=== PATIENT | male | born 1970 | race Caucasian/White ===

== ENCOUNTER 2023-08-26 16:06 | Outpatient (CLI) | payer BC, SELFPAY ==
[2023-08-26 17:20] LABS: Prostate Specific Antigen 1.1 ng/mL (< OR = 4.0)
== END 2023-08-26 16:07 | disposition home or self-care (01) ==
LOC: ANHLAB 16:08
PROVIDERS: Physician Assistant; PCP Family Medicine; Visit Provider Internal Medicine Hematology & Oncology
DX: Z12.5 Encounter for screening for malignant neoplasm of prostate (principal)
CPT/HCPCS: 36415; 84153; G0103

== ENCOUNTER 2024-12-31 17:04 | Outpatient (CLI) | payer BC, SELFPAY ==
--- OUTSIDE RECORDS SUMMARY | 2024-12-31 17:10 | XMS_ITS | Clinical Summary ---
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 08/02/19 23 Active Xyrem 500 mg/mL Solution 06/14/20 22 Active testosterone cypionate (DEPO-TESTOSTERONE ) 100 mg/mL Oil Inject 150 mg by intramuscular injection. Active verapamiL (CALAN) 120 mg tablet Take 120 mg by mouth 2 times daily. 07/13/20 22 Active vilazodone (VIIBRYD) 20 mg Tablet vilazodone 20 mg tablet Active SUMAtriptan (IMITREX) 100 mg tablet Take 100 mg by mouth see administration instructions. 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 Migraine 08/28/2022 Encounters Date Type Department Care Team Description 12/29/2024 Abstract [facility] On[facility] and H[facility]ology - [place] [address] [place] [address] Bethel Goldberg MD 12/28/2024 External Device Data STL ABSTRACTION Provider, Abstract 12/15/2024 External Device Data STL ABSTRACTION Provider, Abstract 12/14/2024 External Device Data ST[facility] ABSTRACTION Provider, Abstract 12/13/2024 Orders Only [facility] - [place] [address] [place] [id number] Bethel Goldberg MD Hereditary hemochromatosis (Primary Dx) 12/09/2024 4:30 PM CDT Telephone Check Up [facility] On[facility] and Hematology - [place] [address] [place] [address] Bethel Goldberg MD Leukocytosis, unspecified type (Primary Dx) 12/06/2024 Orders Only [facility] On[facility] H[facility] - [place] [address] [place] [id number] Bethel Goldberg MD Hereditary hemochromatosis 12/03/2024 Refill [facility] - [place] [address] [place] [address] Bethel Goldberg MD Hereditary hemochromatosis 11/30/2024 Orders Only [facility] - [place] [address] [place] [phone] Bethel Goldberg MD 11/30/2024 Abstract [facility] - [place] [address] [place] [phone] Bethel Goldberg MD 11/29/2024 3:45 PM CDT Office Visit [facility] - [place] [address] [place] [address] Bethel Goldberg MD Hereditary hemochromatosis (Primary Dx); Leukocytosis, unspecified type 11/22/2024 Orders Only [facility] - [place] [address] [place] [address] Bethel Goldberg MD Hereditary hemochromatosis 11/09/2024 External Device Data STL ABSTRACTION Provider, Abstract 11/08/2024 Orders Only [facility]ology - [place] [address] [place] [address] Bethel Goldberg MD Hereditary hemochromatosis 10/25/2024 Orders Only [facility] On[facility] Hematology - [place] [address] [place] [address] Bethel Goldberg MD Hereditary hemochromatosis 10/11/2024 Orders Only [facility] - [place] [address] [place] [address] Bethel Goldberg MD Hereditary hemochromatosis 10/05/2024 External Device Data STL ABSTRACTION Provider, Abstract 10/05/2024 External Device Data STL ABSTRACTION Provider, Abstract 10/02/2024 External Device Data STL ABSTRACTION Provider, Abstract 10/01/2024 External Device Data STL ABSTRACTION Provider, Abstract from Last 3 Months Family History Medical History Relation Name Comments No Known Problems Daughter 1 No Known Problems Daughter 2 Heart Disease Father Kidney Disease Father Dementia Mother No Known Problems Sister Relation Name Status Comments Daughter 1 Alive Daughter 2 Alive Father Alive Mother Alive Sister Alive Social History Tobacco Use Types Packs/Day Years Used Date Smoking Tobacco: Never Smokeless Tobacco: Former Chew Quit: 07/28/2009 Tobacco Cessation:Counseling Given: Not Answered Alcohol Use Standard Drinks/Week Comments Yes 0 (1 standard drink = 0.6 oz pur e alcohol) 1 drink every several months Sex and Gender Information Value Date Recorded Sex Assigned at Not on file Legal Sex Male 4:11 PM [employer]IST[employer] ASS[employer] Gender Identity Not on file Sexual Orientation Not on file Last Filed Vital Signs Vital Sign Reading Time Taken Comments Blood Pressure 130/83 11/29/2024 3:46 PM CDT Pulse 56 11/29/2024 3:46 PM CDT Temperature 36.2 C (97.2 F) 11/29/2024 3:46 PM CDT Respiratory Rate 15 11/29/2024 3:46 PM CDT Oxygen Saturation 97% 11/29/2024 3:46 PM CDT Inhaled Oxygen Concentration - - Weight 89.5 kg (197 lb 6.4 oz) 11/29/2024 3:46 P M CDT Height 175.3 cm (5' 9) 08/28/2022 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 Body Mass Index 29.15 08/28/2022 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 Plan of Treatment Upcoming Encounters Date Type Department Care Team (Late st Contact Info) Description 01/13/2025 4:30 PM CDT Telephone Check Up [facility] Oncology [facility] Hematology [facility] [address] [place] [address] Bethel Goldberg MD [address] [place] [address] 04/14/2025 3:45 PM CDT Office Visit [facility] On[facility] Hematology [facility] [address] [place] [address] Bethel Goldberg MD [address] [place] [address] Health Maintenance Due Date Last Done Comments Pre-Diabetes and Diabetes Screening 1972 DTAP/TDAP/TD VACCINES (1 - Tdap) 1991 HEPATITIS B VACCINES (1 of 3 - 19+ 3-dose series) 1991 COLORECTAL SCREENING 2017 Colorectal Cancer Screening 2017 FIT-DNA Q 3 years 2017 FIT/FOBT Q 1 year 2017 Flex Sig/CT Colonography Q 5 years 2017 ZOSTER VACCINE (1 of 2) 2022 INFLUENZA VACCINE (#1) 2024 08/13/2023, 2016 Procedures Procedure Name Priority Date/Time Associated Diagnosis Comments FLOW CYTOMETRY REPORT Routine 12/03/2024 3:05 PM CDT IRON LEVEL Routine 11/26/2024 12:57 PM CDT from Last 3 Months Results * FLOW CYTOMETRY REPORT (12/03/2024 3:05 PM CDT) us Bethel Goldberg MD PATHOLOGY/CYTOLOGY ORDERABLES F inal Result * IRON LEVEL (11/26/2024 12:57 PM CDT) Blood Bethel Goldberg MD CHEMISTRY ORDERABLES Final Resu lt from Last 3 Months Insurance [facility] BLUE ACCESS CHOICE Care Teams Beef Cattle Grazier Relationship Specialty Start Date End Date Lu Diaz MD PCP - General Family Practice 08/28/22
--- OUTSIDE RECORDS SUMMARY | 2024-12-31 17:10 | XMS_ITS | Data Portability ---
Author Organization [place] [facility] [employer], Main Office Address [address] [place] [address] Assessment No assessment recorded. Plan of Treatment Reminders Order Date Submit Date Provider Last Modified By Organization Details Last Modified Time Details Appointments None recorded. Lab PSA, serum or plasma 2023 [email or web address] Not available 12:33:46 Referral None recorded. Procedures None recorded. Surgeries None recorded. Imaging XR, chest, 2 view 2023 [email or web address] Not available 4 16:29:14 Medication Orders prednisone 20 mg tablet 2023 [facility]armacy #[id number], [address] [place], [address], 4 15:01:36 ciprofloxac in 500 mg tablet 2023 [facility] #[id number], [address] [place], [address], 4 15:01:36 promethazin e-DM 6.25 mg-15 mg/5 mL oral syrup 2023 [facility] #[id number], [address] [place], [address], 4 15:02:34 testosteron e cypionate 200 mg/mL intramuscul ar oil 2023 [facility] #[id number], [address] [place], [address], 4 16:44:59 Patient TargetsNo targets recorded. Patient InstructionsNo instructions recorded. Reason for Referral None Reported. Results Created Date Observation Date Name Description Value Unit Range Abnormal Flag Note LastModifiedBy Organization Detail LastModifiedTime 06/03/2006/03/2024 XR, chest , 2 view No observ ation record ed. [facility] [address] [place], [address], 06/28/2024 14:34:32 Result Notes None recorded. Problems Name Problem SNOMED Code Status Onset Date Resolution Date Notes Provider Name and Address Organization Details Recorded Time Migraine 75951726 Active 2021 Not Available [facility] 3 01:25:39 Hemochromatos is 532758439 Active 2021 Not Available [facility] 3 01:25:39 Narcolepsy 84658130 Active 2021 Not Available [facility] 3 01:25:39 Screening for malignant neoplasm of prostate Active 2023 SELENA Scott [address] [facility], [address] [place] [address], [place], [address] , [email or web address] 4 16:49:58 Administratio n of influenza vaccine Active 2023 SELENA Scott [address] [employer], [place], [address] , [email or web address] 4 16:50:45 Cough 64880740 Active 2023 SELENA Scott [address], [place], [address] , [email or web address] 4 15:00:22 Problem Notes None recorded. Procedures Surgical History Date Name Laterality Status Provider Name and Address Organization Details Recorded Time Tonsillectomy completed Not Available [facility] 09/26/2022 01:24:40 release of trigger finger completed Not Available [facility] 09/26/2022 01:24:40 Carpal tunnel completed Not Available [facility] 09/26/2022 01:24:40 procedure on nerve completed Not Available [facility] 09/26[facility] 01:24:40 Imaging Results None recorded. Procedure Notes None recorded. Medical Equipment None Reported. Allergies No known drug allergies Medications Name Sig Start Date Stop Date Status Note LastModified by Organization Details LastModified Time promethazin e-DM 6.25 mg-15 mg/5 mL oral syrup TAKE 5 ML BY MOUTH EVERY 4 HOURS NEEDED FOR 10 DAYS active Not Available Not Available No t Available doxycycline hyclate 100 mg capsule TAKE 1 CAPSULE BY MOUTH EVERY DAY active Not Available Not Available No t Available benzonatate 200 mg capsule TAKE 1 CAPSULE BY MOUTH EVERY 8 HOURS NEEDED FOR COUGH active Not Available Not Available No t Available sumatriptan 100 mg tablet TAKE 1 TABLET BY MOUTH EVERY DAY NEEDED FOR MIGRANE HEADACHE active Not Available Not Available No t Available prednisone 20 mg tablet PLEASE SEE ATTACHED FOR DETAILED DIRECTION S active Not Available Not Available No t Available ciprofloxac in 500 mg tablet TAKE 1 TABLET BY MOUTH EVERY 12 HOURS FOR 10 DAYS active Not Available Not Available No t Available verapamil 120 mg tablet TAKE 1 TABLET BY MOUTH TWICE A DAY active Not Available Not Available No t Available BD Luer-Bianka Syringe 3 mL 23 gauge x 1 1/2 USE DIRECTED active Not Available Not Available No t Available diazepam 2 mg tablet TAKE 1 TABLET 15-MINUTE BEFORE THE PHLEBOTOM Y active Not Available Not Available No t Available benzonatate 100 mg capsule TAKE 1 CAPSULE BY MOUTH THREE TIMES A DAY 08/13 completed Not Available Not Available Not Available oseltamivir 75 mg capsule TAKE 1 CAPSULE BY MOUTH TWICE A DAY FOR 5 DAYS active Not Available Not Available No t Available testosteron e cypionate 200 mg/mL intramuscul ar oil INJECT 150 MG (0.75ML) EVERY WEEK INTRAMUSC ULARLY active Not Available Not Available No t Available albuterol sulfate HFA 90 mcg/actuati on aerosol inhaler INGHALE 1-2 PUFFS EVERY 4-6 HOURS ASNEEDED FOR COUGH active Not Available Not Available No t Available propranolol 20 mg tablet TAKE 1 TABLET BY MOUTH TWICE A DAY active Not Available Not Available No t Available ondansetron 4 mg disintegrat ing tablet TAKE 1 TAB BY MOUTH EVERY 8 HOURS NEEDED FOR NAUSEA AND VOMITING active Not Available Not Available No t Available naproxen 500 mg tablet TAKE 1 TABLET BY MOUTH TWICE A DAY NEEDED FOR PAIN active Not Available Not Available No t Available amoxicillin 875 mg-jairon m clavulanate 125 mg tablet TAKE 1 TABLET BY MOUTH TWICE A DAY 08/13 completed Not Available Not Available Not Available Xyrem 500 mg/mL oral solution 08/13 completed Not Available Not Available Not Available tadalafil 5 mg tablet TAKE 1 TABLET BY MOUTH EVERY DAY active Not Available Not Available No t Available BD SafetyGlide Needle 18 gauge x 1 1/2 USE DIRECTED active Not Available Not Available No t Available vilazodone 20 mg tablet TAKE 1 TABLET BY MOUTH EVERY DAY active Not Available Not Available No t Available Proair Digihaler 90 mcg/actuati on aerosol powder breath act, sensor INHALE 2 PUFFS BY MOUTH 4 TIMES A DAY NEEDED FOR SHORTNESS OF BREATH active Not Available Not Available No t Available Ajovy 225 mg/1.5 mL subcutaneou s auto-inject or 225 MG (1.5 ML) SUBCUTANE OUSLY MONTHLY active Not Available Not Available No t Available Xywav 0.5 gram/mL oral solution active Not Available Not Available Not Available Vitals Date Recorded Body weight Body temperature Heart rate Oxygen saturation Oxygen saturation in Arterial blood by Pulse oximetry Systolic blood pressure Diastolic blood pressure Provider Name and Address Organization Details Last Updated DateTime 4 14235.7 g 97.7 [degF] 68 /min 98 % 98 % 132 mm[Hg] 78 mm[Hg] Whitney Dillon MA [place] [facility] [employer] 4 16:36:30 Date Recorded Body mass index (BMI) Body height Oxygen saturation Oxygen saturation in Arterial blood by Pulse oximetry Heart rate Body temperature Body weight Systolic blood pressure Diastolic blood pressure Provider Name and Address Organization Details Last Updated DateTime 2 27.1 kg/m2 173.99 cm 97 % 97 % 63 /min 98.4 [degF] 60398.2 2 g 176 mm[Hg] 90 mm[Hg] Not Available [facility] 3 01:24:51 Date Recorded Body weight Body mass index (BMI) Body height Body temperature Heart rate Oxygen saturation Oxygen saturation in Arterial blood by Pulse oximetry Systolic blood pressure Diastolic blood pressure Provider Name and Address Organization Details Last Updated DateTime 4 93694.3 3 g 28.5 kg/m2 175.26 cm 99 [degF] 65 /min 97 % 97 % 128 mm[Hg] 86 mm[Hg] Tasneem Gaona RN [place] [facility] [employer] [facility] 14:38:47 Social History None recorded. Functional Status Question Answer Note LastModified by Organizat ion Details LastModified Time Do you or have you ever used any other forms of tobacco or nicotine? Yes [id number] Information not available 09/26/2022 Do you or have you ever used smokeless tobacco? Former smokeless tobacco user [id number] Information not available 09/26/2022 Mental Status None recorded. Family History Relationship Description Onset Age of this Age Resolved Age Notes LastModified by Organization Details LastModified Time Father Hypercholest erolemia [id number] Not available 09/26/2022 01:24:41 Father Heart disease [id number] Not available 09/26/2022 01:24:41 Father Kidney disease [id number].448 [id number] Not available 09/26/2022 01:24:41 Father Kidney stone MIGRATION.0 30 [id number] Not available 09/26/2022 01:24:41 Father Diabetes mellitus MIGRATION.631 [id number] Not available 09/26/2022 01:24:42 Father Hypertensive disorder [id number].873 [id number] Not available 09/26/2022 01:24:42 Paternal Grandfather Hypercholest erolemia [id number].687 [id number] Not available 09/26/2022 01:24:42 Paternal Uncle Hypercholest erolemia [id number].066 [id number] Not available 09/26/2022 01:24:42 Maternal Grandmother Diabetes mellitus MIGRATION.582 [id number] Not available 09/26/2022 01:24:42 Maternal Grandfather Myocardial infarction MIGRATION.364 [id number] Not available 09/26/2022 01:24:42 Maternal Grandfather Hypertensive disorder MIGRATION.332 [id number] Not available 09/26/2022 01:24:42 Maternal Grandfather Family history of stroke [id number].410 [id number] Not available 09/26/2022 01:24:42 Medical History Condition Response BLINDNESS N RHEUMATIC FEVER N KIDNEY STONES N BLADDER PROBLEMS N MRSA N OTHER # 1 N POLIO N LUNG DISEASE/DISORDER N HISTORY OF DRUG ABUSE N RADIATION / CHEMOTHERAPY N COPD N Other # 2 N BLOOD DISEASES Y SURGERY N EAR OR HEARING PROBLEMS N MUMPS N SHINGLES N BOWEL PROBLEMS N FEMALE PROBLEMS / INFECTIONS N DEPRESSION (INCLUDING POST ) Y STROKE/TIA N THYROID DISEASE N ULCERS N BENIGN PROSTATIC HYPERPLASIA N MEASLES N CERVICALGIA N HYPOTENSION N TB SKIN TEST N MYOCARDIAL INFARCTION N PARAPELGIA N OBESITY N GERD/NAUSEA N ANEURYSM N URINARY/BLADDER/KIDNEY PROBLEMS N CORONARY ARTERY DISEASE (CAD) N MENIERE'S DISEASE N ADDICTION CONCERNS N ENDOMETRIOSIS N USE OF BLOOD THINNERS N SKIN PROBLEMS N EMPHYSEMA N GASTROINTESTINAL DISORDER N MUSCLE,JOINT OR BONE PROBLEMS N GASTROINTESTINAL BLEEDING N BLOOD CLOTS N ASTHMA N CATARACTS N ERECTILE DYSFUNCTION N GI PROBLEMS N CHF N Low Testosterone N NEUROPATHY N INFERTILITY N AIDS/HIV N FRACTURES N CHEMOTHERAPY / RADIATION N VISION/EYE PROBLEMS N LIVER DISEASE N MALE HYPOGONADISM N HYPERTENSION Y TOURETTE'S N ANXIETY DISORDER Y BLOOD TRANSFUSION N ANEMIA/BLOOD DISORDER N CHRONIC EAR INFECTIONS N BRONCHITIS N TUBERCULOSIS N GLAUCOMA N FOOT PROBLEM N DIVERTICULITIS N CHICKENPOX N SLEEP APNEA N ALLERGIES/HAYFEVER N INFECTIOUS DISEASE N HEART ARRHYTHMIA N PROSTATE N INSOMNIA N HIGH CHOLESTEROL / HYPERLIPIDEMIA N HYPERTHYROIDISM N EYE PROBLEMS N EATING DISORDER N EDEMA N CHRONIC PAIN SYNDROME N CONSTIPATION N CAROTID BLOCKAGE N BACK / NECK PROBLEMS N HAVE YOU BEEN HOSPITALIZED OR SEEN IN [facility] ER IN THE PAST YEAR ? N ATHEROSCLEROSIS N BREAST PROBLEMS N DIALYSIS N ECZEMA N FIBROMYALGIA N OSTEOPOROSIS N ARTHRITIS N NO SIGNIFICANT PAST MEDICAL HISTORY N APPENDICITIS N DIABETES, TYPE N BAD TEETH N HEARTBURN / REFLUX N ADD/ADHD N AUTISM SPECTRUM DISORDER (ASD) N HEPATITIS / LIVER DISEASE N PULMONARY DISEASE N GOUT N SLEEP DISORDER N ALZHEIMER'S DISEASE N PAIN N HERPES N DEMENTIA N HEADACHES/MIGRAINES Y SEIZURES/EPILEPSY N VASCULAR DISEASE N PACEMAKER N DIZZINESS N HEART DISEASE/HEART PROBLEMS N KIDNEY DISEASE N DEVELOPMENTAL OR BEHAVIORAL DISORDERS N MULTIPLE SCLEROSIS N SCARLET FEVER N MENTAL DISORDER/ILLNESS N CARDIAC ARRHYTHMIA N CANCER: SPECIFY N PNEUMONIA N ATRIAL FIBRILLATION N Gall Stones N PULMONARY EMBOLISM N AUTOIMMUNE DISEASE N Immunizations Vaccine Type Date Status Note Provider Nam e and Address Organization Details Recorded Time Influenza, split virus, quadrivalent, PF 08/13/2023 completed SELENA Scott [address] [place] [address], [facility] [address], [place], [address], [facility] [employer] 08/16/2023 20:48:59 Past Encounters Encounter ID Performer Location Encounter Start Date Encounter Closed Date Diagnosis/Indication Diagnosis SNOMED-CT Code Diagnosis ICD10 Code Diagnosis Note [id number] Lu Diaz MD [facility] Rafaelrosmery anita [address] [place] [address] 04/17/2022 00:00:00 04/18/2022 08:53:30 [id number] Lu Diaz MD [facility] [address] [facility] [place] [place] [address] 08/13/2023 16:20:20 08/13/2023 17:06:44 Renewal of prescription 783337790 Z76.0 Screening for malignant neoplasm of prostate 807517956 Z12.5 Administra tion of influenza vaccine 98092311 Z23 Hemochromatosis 08487811 6 E83.119 Narcolepsy 11168697 G47. 465 [id number] Leroy Hernandez MD [facility] Dane howard [address] [place] [address] 06/03/2024 14:26:19 06/03/2024 15:05:30 Cough 42060176 R05.9 Health Concerns Section Related Observation LastModified by Organization Detai ls LastModified Time None Recorded Concern Status LastModified by Organization Details LastModified Time None Recorded Advance Directives Directive None Recorded Payers Encounter Date Sequence Insurance Name Policy Number Policy Wiggins Covered Member ID Wiggins Member ID Guarantor Name 08/13/2023 1 [place] [id number] Irvin Aguilar [id number] Irvin Aguilar 06/03/2024 1 [place] [id number] Irvin Aguilar [id number] Irvin Aguilar Notes Date Note Type Note Provider Name and Address Organization Details Recorded Time 08/13/2023 text/html needs testosterone SELENA Parra [address], [place], [address], [facility] [employer] [facility] 08/16/2023 20:50:58 06/03/2024 text/html no fever . SELENA Scott [address], [place], [address], [place] [facility] 06/28/2024 12:30:01
--- OUTSIDE RECORDS SUMMARY | 2024-12-31 17:10 | XMS_ITS | Data Portability ---
Author Organization [facility] Address [address] [place] [address] Assessment Encounter Date Assessment Date Assessment LastModified by Organization Details LastModified Time 02/14/2020 02/14/2020 Pt reports improved pain along R palm of hand. Pt continues to progress with RUE strengthening exercises using 5 lb weights. Continue POC. [email or web address] Not available 02/15/2020 09:59:15 02/16/2020 02/16/2020 Pt demonstrated improved strength and endurance secondary to ability to tolerate increase in weights/sets during therapeutic exericses today. [email or web address] Not available 02/16/2020 17:59:12 02/21/2020 02/21/2020 Pt reports an increase in burning along R ulnar side of palm of hand. Reviewed YUSRA with pt. Pt educated on ergonomics while sleeping and on computer to avoid MN and UN compression. Will re-assess at next visit. [email or web address] Not available 02/22/2020 10:27:33 02/23/2020 02/23/2020 Impairments: Pain, Edema, Flexibility, Joint mobility, ROM, Strength, Endurance, Posture, and Body Mechanics Functional Limitations: ADL performance, AROM, strength for self care and home management, Community participation, Leisure activities, Work activities, Sport activities Impression: Patient presents with pain consistent with diagnosis and would benefit from OT to improve ROM, strength, body mechanics, increase flexibility to allow patient to regain pain free UE functional movement patterns and resume baseline IADL, work, and leisure activities without limitation. 02/23/2020: Pt continues to have difficulty with pain on ulnar side side of volar palm and wrist, specifically when pushing up from a table or typing on a computer. He presents with functional AROM of wrist/forearm/el bow/MF and strength to perform ADLs/IADLs, home management tasks, and self-care tasks. He would benefit from OT services to improve his strength and return to complete independence during daily activities without any limitations. Occupational Therapy is medically necessary and appropriate. Pt.'s goals have been included in the plan of care. Plan Of Care 32655: OT Evaluation: Low Complexity 57664: OT Evaluation: Moderate Complexity 07918: OT Evaluation: High Complexity 96065: OT Re-Evaluation 54916: Whirlpool 39490: E-Stim (unattended) 12775: Estim (Manual) G0283: E-Stim, Unattended (Medicare) 80444: Iontophoresis 62914: Ultrasound 33476: Therapeutic Exercise 40330: Neuromuscular Re-Education 01850: Manual Therapy 71254: Therapeutic Activities 23453: Self Care/home management training NC001: No Charges this Visit DME L Codes: L3702 Long Arm Elbow L3906 WHO Wrist Cock Up L3808 WHFO Resting Forearm through Digits L3913 HFO Hand Finger Orthosis L3933 Finger Orthosis Rehab Potential: Excellent Skilled Physical Therapy Intervention Recommendation: Frequency: 1-2 per week Duration: 3 week(s) [email or web address] Not available 02/24/2020 15:39:54 03/01/2020 03/01/2020 Pt continues to progress with strengthening exercises. He reports burning along R ulnar side of palm of hand when typing; pain subsides when he stops typing. 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 OT services will focus on strengthening to perform ADLs/IADLs, RTW tasks, and home management tasks. Continue POC. [email or web address] Not available 03/01/2020 18:00:00 Plan of Treatment Reminders Order Date Submit Date Provider Last Modified By Organization Details Last Modified Time Details Appointments None record ed. Lab None record ed. Referral None record ed. Procedures None record ed. Surgeries None record ed. Imaging None record ed. Medication Orders None record ed. Patient Targets Encounter Date Encounter Id Patient Goals Patient Target Last Modified By Organization Details Last Modified Time STG- Pt will be able to use affected side to feed, groom, dress and bath self in 2-3 weeks. MET (01/26/2020)STG- Pain will be reduced significantly and be non-interfering in basic functional activities including ADLs in 3-5 weeks. PARTIALLY MET (02/23/2020)STG- Pt will be able to write, type, tie shoelaces with affected side in 3-4 weeks. MET (01/26/2020)LTG- Pt will be able to cut food, open jars, prepare simple meals with previous level of function in 6 weeks. PARTIALLY MET (difficulty opening jars)(02/23/2020 ) LTG- Pt will be independent with all home management tasks using affected side as required in 8 weeks. MET (02/23/2020)LTG- Pt will return to work with previous level of function, using ADs as need in 10 weeks. ONGOING (01/26/2020)LTG- Patient will be able to restore endurance in order to return to self care, work and IADLs in 10 weeks. MET (02/23/2020)STG- Pt. will report pain reduction after instruction with pain management techniques in 2 weeks. MET (01/26/2020)STG- Pain will be reduced by 2-3 levels on a 0-10 scale to improve function in 2 weeks. MET (01/26/2020)LTG- Pt. 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 pinch by 3-5 lbs to increase ADL independence in 6 weeks. 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 MET (01/26/2020) [email or web address] Not available 0 15:19:36 Patient InstructionsNo instructions recorded. Reason for Referral None Reported. Problems Name Problem SNOMED Code Status Onset Date Resolution Date Notes Provider Name and Address Organization Details Recorded Time Closed fracture of other tarsal and metatarsal bones Active 2013 Fx Tarsal /Metat arsal Closed *; Not Available [facility] 9 07:04:27 Triggering of digit 756686284 Active 2017 Not Available [facility] 9 01:49:04 Numbness of hand 464905258 Active 2019 Julia Morataya [facility] 0 14:04:29 Carpal tunnel syndrome of right wrist 8001124800882 08 Active 2019 Julia Hood null, [facility] 0 14:04:37 Neck pain 88148779 Active 2019 Julia Morataya null, [facility] 0 14:05:22 Cubital tunnel syndrome Active 2019 Julia Morataya null, [facility] 0 14:06:01 Postoperat farrah visit 168188168 Active 2019 Oralia Mcqueen null, [facility] 0 12:56:26 Problem Notes None recorded. Procedures Surgical History Date Name Laterality Status Provider Name and Address Organization Details Recorded Time 0 [address]43: Ultrasound completed Xiomara Downs, CHELSEA [address] [place] [address], [address], [facility] 02/23/2020 17:09:37 0 82834: Ultrasound completed Xiomara Downs, OT [address] [place], [address], [facility] 02/22/2020 10:26:38 0 91270: Therapeutic Exercise completed Xiomara Downs, CHELSEA [address] [place], [address], [facility] 02/22/2020 10:26:38 0 04848: Manual Therapy completed Xiomara Downs OT [address] [place], [address], [facility] 02/22/2020 10:26:38 0 99420: Ultrasound completed Xiomara Downs OT [address] [place], [address], [facility] 02/16/2020 17:20:02 0 99823: Therapeutic Exercise completed Xiomara Downs OT [address] [place], [address], [facility] 02/16/2020 17:20:02 0 63084: Manual Therapy completed Xiomara Downs, OT [address] [place], [address], [facility] 02/16/2020 17:30:17 0 34140: Ultrasound completed Xiomara Downs, OT [address] [place], [address], [place] [facility] 02/14/2020 17:35:53 0 97428: Therapeutic Exercise completed Xiomara Downs, OT [address] [place], [address], [place] [facility] 02/14/2020 17:34:24 0 09521: Manual Therapy completed Xiomararyan Downs, OT [address] [place], [address], [place] [facility] 02/14/2020 17:36:24 0 61682: Therapeutic Exercise completed Xiomararyan Downs, OT [address] [place], [address], [facility] 02/10/2020 11:50:02 0 09591: Manual Therapy completed Xiomararyan Downs, OT [address] [place], [address], [facility] 02/10/2020 11:49:35 0 74691: Ultrasound completed Xiomara Downs, OT [address] [place], [address], [facility] 02/08/2020 13:38:24 0 57631: Therapeutic Exercise completed Xiomararyan Bushe, OT [address] [place], [address], [facility] 02/08/2020 13:38:24 0 41207: Manual Therapy completed Xiomara Bushe, OT [address] [place], [address], [facility] 02/08/2020 13:38:24 0 18682: Ultrasound completed Xiomara Downs, OT [address] [place], [address], [facility] 01/31/2020 16:18:14 0 01955: Therapeutic Exercise completed Xiomararyan Downs, OT [address] [place], [address], [facility] 01/31/2020 16:20:03 0 37253: Manual Therapy completed Xiomara Downs, OT [address] [place], [address], [facility] 01/31/2020 16:17:55 0 65370: Ultrasound completed Xiomararyan Downs, OT [address] [place], [address], [facility] 01/31/2020 16:24:40 0 46139: Therapeutic Exercise completed Xiomara Downs, OT [address] [place], [address], [facility] 01/31/2020 16:22:33 0 57073: Manual Therapy completed Xiomara Downs, OT [address] [place], [address], [facility] 01/31/2020 16:22:24 0 66476: Therapeutic Exercise completed Xiomara Downs, OT [address] [place], [address], [facility] 01/25/2020 12:26:10 0 23223: Manual Therapy completed Xiomara Downs, OT [address] [place], [address], [facility] 01/25/2020 12:24:16 0 *21580: OT Evaluation: Low Complexity completed Xiomara Downs, OT [address] [place], [address], [facility] 12/20/2019 21:19:26 0 00878: Therapeutic Exercise completed Xiomara Downs, OT [address] [place], [address], [facility] 12/20/2019 21:19:31 9 RLP30 Right Middle Trigger completed Oralia Mcqueen [facility] 06/02/2019 16:59:42 9 RLP30 Trigger Digit Injection Right MULTIPLE completed Emy Santizo NP [address] [place], [address], [facility] 09/06/2018 21:40:18 Imaging Results None recorded. Procedure Notes None recorded. Medical Equipment None Reported. Allergies No known drug allergies Medications Name Sig Start Date Stop Date Status Note LastModified by Organization Details LastModified Time lamotrigine 150 mg tablet active Not Available Not Available Not Available venlafaxine ER 75 mg capsule,ext ended release 24 hr TAKE ONE CAPSULE BY MOUTH ONE TIME DAILY active Not Available Not Available No t Available ibuprofen 800 mg tablet active Not Available Not Available Not Available alprazolam 1 mg tablet TAKE ONE TABLET BY MOUTH TWICE A DAY NEEDED FOR ANXIETY active Not Available Not Available No t Available sumatriptan 100 mg tablet TAKE ONE TABLET BY MOUTH AT ONSET OF HEADACHE, MAY REPEAT IN 2 HOURS IF NEEDED DO NOT EXCEED 2 TABS IN 24 HOURS active Not Available Not Available No t Available hydrocodone 5 mg-acetamin ophen 325 mg tablet active Not Available Not Available No t Available ondansetron HCl 4 mg tablet active Not Available Not Available Not Available testosteron e cypionate 100 mg/mL intramuscul ar oil active Not Available Not Available Not Available acetaminoph en 300 mg-codeine 30 mg tablet Take 1 tablet every 4-6 hours by oral route as needed. active Not Available Not Available No t Available hydrocodone 10 mg-acetamin ophen 325 mg tablet TAKE ONE TABLET BY MOUTH EVERY 6 HOURS NEEDED FOR PAIN MUST LAST 30 DAYS active Not Available Not Available No t Available amoxicillin 500 mg tablet 05/31 completed Not Available Not Available Not Available ondansetron 8 mg disintegrat ing tablet DISSOLVE ONE TABLET BY MOUTH EVERY 6 HOURS NEEDED active Not Available Not Available No t Available hydrocortis one acetate 25 mg rectal suppository active Not Available Not Available Not Available verapamil 120 mg tablet TAKE ONE TABLET BY MOUTH TWICE A DAY active Not Available Not Available No t Available hydrocortis one 2.5 % topical cream with perineal applicator active Not Available Not Available N ot Available BD Regular Bevel Peach Bottom 18 gauge x 1 USE DIRECTED active Not Available Not Available No t Available propranolol 10 mg tablet TAKE ONE TABLET BY MOUTH TWICE A DAY active Not Available Not Available No t Available clindamycin 1 % topical gel APPLY TOPICALLY TO BACK TWICE DAILY active Not Available Not Available No t Available oxycodone-a cetaminophe n 10 mg-325 mg tablet 11/28 completed Not Available Not Available Not Available tamsulosin 0.4 mg capsule active Not Available Not Available Not Available dextroamphe tamine-amph etamine ER 20 mg 24hr capsule,ext end release TAKE ONE CAPSULE BY MOUTH EVERY MORNING active Not Available Not Available No t Available BD Luer-Bianka Syringe 3 mL 25 gauge x 1 USE DIRECTED active Not Available Not Available No t Available fluoxetine 10 mg capsule 11/28 completed Not Available Not Available Not Available testosteron e cypionate 200 mg/mL intramuscul ar oil INJECT 0.75 ML INTRAMUSC ULARLY ONCE WEEKLY active Not Available Not Available No t Available methylpredn isolone 4 mg tablets in a dose pack Take 1 dose pk by oral route as directed. active Not Available Not Available No t Available propranolol 20 mg tablet TAKE ONE TABLET BY MOUTH TWICE A DAY active Not Available Not Available No t Available ondansetron 4 mg disintegrat ing tablet active Not Available Not Available N ot Available lamotrigine 100 mg tablet active Not Available Not Available Not Available diazepam 5 mg tablet active Not Available Not Available No t Available amoxicillin 875 mg-potassiu m clavulanate 125 mg tablet 11/28 completed Not Available Not Available Not Available erythromyci n-benzoyl peroxide 3 %-5 % topical gel APPLY TO THE AFFECTED AREA(S) TOPICALLY TWICE DAILY active Not Available Not Available No t Available escitalopra m 10 mg tablet TAKE ONE TABLET BY MOUTH ONE TIME DAILY FOR 2 WEEKS active Not Available Not Available No t Available escitalopra m 20 mg tablet TAKE ONE TABLET BY MOUTH ONE TIME DAILY active Not Available Not Available No t Available Xyrem 500 mg/mL oral solution active Not Available Not Available Not Available tadalafil 5 mg tablet TAKE ONE TABLET BY MOUTH ONE TIME DAILY active Not Available Not Available No t Available chlorhexidi ne gluconate 0.12 % mouthwash 11/28 completed Not Available Not Available Not Available Imitrex active Not Available Not Avail able Not Available Adderall active Not Available Not Avai lable Not Available desvenlafax ine succinate ER 50 mg tablet,exte nded release 24 hr active Not Available Not Available Not Available testosteron e 20.25 mg/1.25 gram per pump act.(1.62 %) transdermal gel active Not Available Not Available Not Available Viibryd 10 mg tablet active Not Available Not Available No t Available Viibryd 20 mg tablet TAKE ONE TABLET BY MOUTH ONE TIME DAILY active Not Available Not Available No t Available Fetzima 40 mg capsule,ext ended release active Not Available Not Available Not Available Fetzima 20 mg capsule,ext ended release active Not Available Not Available Not Available Trintellix 10 mg tablet TK 1 T PO D active Not Available Not Available No t Available Ajovy Syringe 225 mg/1.5 mL subcutaneou s INJECT 1.5ML UNDER THE SKIN IN THE ABDOMEN, THIGH, OR UPPER ARM ONCE A MONTH active Not Available Not Available No t Available Ajovy Syringe active Not Available Not Available Not Available Xyosted 100 mg/0.5 mL subcutaneou s auto-inject or INJECT THE CONTENTS OF ONE PEN UNDER THE SKIN EVERY WEEK active Not Available Not Available No t Available Flucelvax Quad 7556-0437 (PF) 60 mcg (15 mcg x 4)/0.5 mL IM syringe 11/28 completed Not Available Not Available Not Available Vitals None Recorded Social History Question Answer Notes LastModified by Organizat ion Details LastModified Time Tobacco Smoking Status Never Smoker Renita Olson [facility] 11/29/2019 15:41:00 What Was The Date Of Your Most Recent Tobacco Screening? 02/01/2020 [email or web address] Information not available 02/01/2020 How Much Tobacco Do You Smoke? No [email or web address] Information not available 05/31/2019 Sex: Unknown Functional Status Question Answer Note LastModified by Organizat ion Details LastModified Time Do you or have you ever used smokeless tobacco? Former smokeless tobacco user chewed tobacco for 15 years Information not available 05/31/2019 Mental Status None recorded. Family History Nothing Reported. Medical History Condition Response Allergic/Immunologic (ex: en vironmental allergies / food/insect bite reactions / adverse reactions to prescription drugs etc) N Gout N Other N Thyroid Disease N MRSA Y Genitourinary (ex: incontinence / pain w ith urination etc) N Gastrointestinal (ex: diarrh ea / constipation / abdominal pain / heart burn / difficulty swallowing etc) N Eyes (ex: burning / redness / itching et c) N Blood Clot N Musculoskeletal (ex: painful /stiff joints / muscle weakness / difficulty walking/sitting etc) N Acid Reflux (GERD) N Cancer N Stroke N Leg or Foot Ulcers N Constitutional (ex: fever / chills / komal ght loss etc) N Ears, Nose, Mouth, Throat (ex: earaches / runny nose /sore throat etc) N Rheumatoid Arthritis N Fibromyalgia N Osteoarthritis N Hematologic/Lymphatic (ex: a nemia / easy bruising/bleeding / blood abnormalities / neck or groin nodules etc) N Neurological (ex: dizziness / seizures / sensation disturbance / numbness/tingling etc) N Kidney or Bladder Problems N Pulmonary/Lung Disease N Skin Problems N Osteoporosis/Osteopenia N Anemia N Psychiatric Illness Y Diabetes N Hepatitis/Liver Disease N Bleeding Disorder N Integumentary/Skin (ex: rash / itching / lumps / lesions / jaundice etc) N AIDS/HIV N Endocrine (ex: excessive swe ating / heat/cold intolerance / excessive thirst/hunger/urination / unexplained weight gain/loss / fatigue / hormone etc) N Respiratory (ex: wheezing / shortness of breath / cough etc) N Lupus N Peripheral Vascular Disease N Psoriasis N Epilepsy/Seizures N Sleep Apnea N Cardiac/Heart Disease/Hypertension N Cardiovascular (ex: chest pain / tightne ss / dizzy spells etc) N Scleroderma N Neuropathy N Pulmonary Embolism N Past Encounters Encounter ID Performer Location Encounter Start Date Encounter Closed Date Diagnosis/Indication Diagnosis SNOMED-CT Code Diagnosis ICD10 Code Diagnosis Note [id number] GABRIELA Tripathi r [address] [place] [address] 09/03/2018 15:48:16 09/03/2018 16:22:12 Trigger finger of right hand [id number] 3424336 M65.321 M65.331 [id number] Narinder Schulte MD [facility] [address] [place] [address] 05/31/2019 15:47:42 06/04/2019 13:02:12 Triggering of digit 538665045 M65.331 [id number] Narinder Schulte MD [facility] [address] [place], [place] [address] [place] [address] 11/29/2019 15:16:54 11/29/2019 17:08:28 Numbness of hand 089659371 R20.0 Carpal yamini cade syndrome of right wrist 5474562809 49042 G56.01 G56.21 Neck pain 99056471 M54.2 Triggering of digit 2399 37800 M65.331 Cubital tu nnel syndrome 19459383 G56.23 [id number] Xiomara Downs OT [facility] [address] [place] [address] 12/15/2019 16:39:46 12/21/2019 10:22:41 Pain of right wrist 9911995844 30856 M25.531 [id number] MD DANETTE Dubois_Anatoliy vidales [facility] [address] [place] [address] 12/22/2019 14:22:26 12/22/2019 14:51:18 Postoperative visit 564954933 Z09 Satisfacto ry visit [id number] Xiomara Downs OT [facility] [address] [place] [address] 01/24/2020 10:22:50 01/25/2020 12:33:07 Pain of right wrist 9368584024 91085 M25.531 [id number] Xiomara Downs OT [facility] [address] [place] [address] 01/26/2020 14:40:36 02/01/2020 10:40:32 Pain of right wrist 8533773799 04568 M25.531 [id number] Xiomara Downs OT [facility] [address] [place] [address] 01/31/2020 15:07:03 02/01/2020 10:41:24 Pain of right wrist 4922675547 51356 M25.531 [id number] MD Margie Dubois en [facility] [address] [place] [address] 02/01/2020 11:16:30 02/01/2020 13:34:34 Postoperative visit 883267338 Z09 Satisfacto ry visit [id number] Xiomaraluisito Downs, OT [facility] [address] [place] [address] 02/07/2020 15:02:20 02/09/2020 13:54:04 Pain of right wrist 3329233667 03659 M25.531 [id number] Xiomara Downs, OT [facility] [address] [place] [address] 02/09/2020 15:14:50 02/14/2020 07:49:35 Pain of right wrist 3655364478 83174 M25.531 [id number] Xiomara Downs OT [facility] [address] [place] [address] 02/14/2020 16:23:34 02/15/2020 15:00:54 Pain of right wrist 9239540071 17723 M25.531 [id number] Xiomara Downs OT [facility] [address] [place] [address] 02/16/2020 14:33:08 02/16/2020 16:51:13 Pain of right wrist 3945605631 79582 M25.531 [id number] Xiomara Downs OT [facility] [address] [place] [address] 02/21/2020 16:35:14 02/21/2020 19:21:57 Pain of right wrist 7666876287 43121 M25.531 [id number] Xiomara Downs OT [facility] [address] [place] [address] 02/23/2020 15:40:00 02/25/2020 09:46:23 Pain of right wrist 5466502387 90952 M25.531 [id number] Xiomara Downs, OT [facility] [address] [place] [address] 03/01/2020 16:42:48 03/02/2020 12:58:51 Pain of right wrist 2486846380 19970 M25.531 Health Concerns Section Related Observation LastModified by Organization Detai ls LastModified Time None Recorded Concern Status LastModified by Organization Details LastModified Time None Recorded Advance Directives Directive None Recorded Payers Encounter Date Sequence Insurance Name Policy Number Policy Wiggins Covered Member ID Wiggins Member ID Guarantor Name 02/14/2020 1 [place] Irvin Aguilar [id number] Irvin Aguilar 02/16/2020 1 [place] Irvin Aguilar [id number] Irvin Aguilar 02/21/2020 1 [place] Irvin Aguilar [id number] Irvin Aguilar 02/23/2020 1 [place] Irvin Aguilar [id number] Irvin Aguilar 03/01/2020 1 [place] Irvin Aguilar [id number] Irvin Aguilar
--- OUTSIDE RECORDS SUMMARY | 2024-12-31 17:10 | XMS_ITS | Data Portability ---
Author Organization [facility] [employer], [id number] [address] [place] [address] Care Team Providers Care Information Scientist Name Role Phone STEPHANIE CRUZ Primary Care Provider [phone] Assessment Encounter Date Assessment Date Assessment LastModified by Organization Details LastModified Time 08/31/2021 08/31/2021 Impression: Mr. Irvin Aguilar is a 51-year-old gentleman with hereditary hemochromatosis and iron overload treated with phlebotomy periodically every 1 to 3 months. He also has hypogonadism and receives testosterone injection monthly. Has not had phlebotomy for > 6 months. Iron and ferritin both increasing. Plan: 1. Iron overload secondary to hereditary hemochromatosis: Resume phlebotomy with goal ferritin < 100. 2. Hypogonadism: Mr. Aguilar receives testosterone replacement with his primary care doctor. Not available 08/31/2021 12:38:13 12/07/2021 12/07/2021 Impression: Mr. Irvin Aguilar is a 51-year-old gentleman with hereditary hemochromatosis and iron overload treated with phlebotomy periodically every 1 to 3 months. He also has hypogonadism and receives testosterone injection monthly. Has not had phlebotomy for > 6 months. Iron and ferritin both increasing. Plan: 1. Iron overload secondary to hereditary hemochromatosis: Resume phlebotomy with goal ferritin < 100. 2. Hypogonadism: Mr. Aguilar receives testosterone replacement with his primary care doctor. Not available 12/06/2021 22:41:40 Plan of Treatment Reminders Order Date Submit Date Provider Last Modified By Organization Details Last Modified Time Details Appointments None recorded. Lab CBC w/ diff 2021 022 [facility] ([facility]), [address] , [place], [address], 03:34:41 iron panel, serum or plasma [facility] [address], [place], [address], 03:34:43 CMP, serum or plasma 2021 [facility] ([facility]), [address], [place], [address], 03:34:44 afp (alpha-feto protein), serum 2021 [facility] ([facility]), [address], [place], [address], 03:34:45 unlisted lab - ferritin 2021 [facility] ([facility]), [address], [place], [address], 03:34:57 CBC w/ diff 2021 [facility] ([facility]), [address], [place], [address], 15:10:05 unlisted lab - ferritin 2021 [facility] ([facility]), [address], [place], [address], 18:29:20 iron panel, serum or plasma 2021 [facility] ([facility]), [address], [place], [address], 18:29:23 CMP, serum or plasma 2021 [facility] ([facility]), [address] , [place], [address], 18:31:17 afp (alpha-feto protein), serum 2021 [facility] ([facility]), [address], [place], [address], 21:40:22 testosteron e, total, serum 2020 [facility] ([facility]), [address] , [place], [address], 11:45:50 CBC 2020 [facility] ([facility]), [address] , [place], [address], 11:45:50 hepatic function panel, serum 2020 [facility] ([facility]), [address] , [place], [address], 11:45:50 Referral infusion referral treatment change - resume phlebotomy every 3 months, start in 1-2 weeks. 2021 [facility] In-Office Order, Internal Use Only DO Not Attach Compendium DO Not Attach Compendium, Do Not Delete/merge, [id number] 09:44:04 nephrologis t referral - .[facility] Provider Scheduling is sending a patient to your office. Please contact the patient to schedule. Thank you! 2020 [facility], [address], [place], [address], 15:47:22 Procedures None recorded. Surgeries None recorded. Imaging None recorded. Medication Orders Valium 5 mg tablet 2021 022 [id number], [address] [place], [address], 12:30:22 Patient TargetsNo targets recorded. Patient InstructionsNo instructions recorded. Reason for Referral [employer] Repairer Referral for Ch ronic kidney disease .[facility] Provider Scheduling is sending a patient to your office. Please contact the patient to schedule. Thank you! Referring Physician: Braeden Lee, Urology, Encounter Date: 10/27/2020 Infusion Referral Treatment Change for Hereditary hemochromatosis resume phlebotomy every 3 months, start in 1-2 weeks. Referring Physician: Song Boothe, Hematology/Oncology, Encounter Date: 08/31/2021 Results Created Date Observation Date Name Description Value Unit Range Abnormal Flag Note LastModifiedBy Organization Detail LastModifiedTime 10/14/1910/13/2020 CBC with diff WBC 8.28 thou/ cumm 3.90-1 1.20 Not Available [facility] [address], [place], [address], 10/13/2020 17:11:53 10/14/19 21 10/13/2020 CBC with diff RBC 5.38 mill/ cumm 3.70-5 .70 Not Available [place] [address], [place], [address], 10/13/2020 17:11:53 10/14/19 21 10/13/2020 CBC with diff hemoglobin 17.3 g/dL 11.7-1 7.3 Not Available [place] [address], [place], [address], 10/13/2020 17:11:53 10/14/19 21 10/13/2020 CBC with diff hematocrit 47.7 % 36.5-5 0.0 Not Available [place] [address], [place], [address], 10/13/2020 17:11:53 10/14/19 21 10/13/2020 CBC with diff MCV 88.7 fL 82.0-1 00.0 Not Available [place] [address], [place], [address], 10/13/2020 17:11:53 10/14/19 21 10/13/2020 CBC with diff MCH 32.2 pg 26.0-3 4.0 Not Available [place] [address], [place], [address], 10/13/2020 17:11:53 10/14/19 21 10/13/2020 CBC with diff MCHC 36.3 g/dL 32.0-3 6.0 high Not Available [place] [address], [place], [address], 10/13/2020 17:11:53 10/14/19 21 10/13/2020 CBC with diff rdwsd 38.1 fL 35.1-4 6.8 Not Available [place] [address], [place], [address], 10/13/2020 17:11:53 10/14/19 21 10/13/2020 CBC with diff MPV 9.6 fL 9.7-12 .8 low Not Available [place] [address], [place], [address], 10/13/2020 17:11:53 10/14/19 21 10/13/2020 CBC with diff platelet count 220 thou/ cumm 140-44 0 Not Available [place] [address], [place], [address], 10/13/2020 17:11:53 10/14/19 21 10/13/2020 CBC with diff neutrophils auto 67.6 % 40.0-7 7.0 Not Available [place] [address], [place], [address], 10/13/2020 17:11:53 10/14/19 21 10/13/2020 CBC with diff immat granulocyte auto 0.2 % 0.0-0. 5 Not Available [place] [address], [place], [address], 10/13/2020 17:11:53 10/14/19 21 10/13/2020 CBC with diff lymphocytes auto 17.9 % 14.0-4 7.0 Not Available [place] [address] , [place], [address], 10/13/2020 17:11:53 10/14/19 21 10/13/2020 CBC with diff monocytes auto 11.5 % 0.0-13 .0 Not Available [place] [address] , [place], [address], 10/13/2020 17:11:53 10/14/19 21 10/13/2020 CBC with diff eosinophils auto 2.3 % 0.0-7. 0 Not Available [place] [address] , [place], [address], 10/13/2020 17:11:53 10/14/19 21 10/13/2020 CBC with diff basophils auto 0.5 % 0.0-2. 0 Not Available [place] [address] , [place], [address], 10/13/2020 17:11:53 10/14/19 21 10/13/2020 CBC with diff NRBC auto 0.0 /100_ WBC 0.0-0. 2 Not Available [place] [address], [place], [address], 10/13/2020 17:11:53 10/14/19 21 10/13/2020 CBC with diff abs NRBC auto <0.01 thou/ cumm 0.00-0 .01 Not Available [place] [address] , [place], [address], 10/13/2020 17:11:53 10/14/19 21 10/13/2020 CBC with diff abs neutrophils auto 5.60 thou/ cumm 2.00-6 .80 Not Available [place] [address] , [place], [address], 10/13/2020 17:11:53 10/14/19 21 10/13/2020 CBC with diff abs immat gran auto 0.02 thou/ cumm 0.00-0 .04 Not Available [place] [address], [place], [address], 10/13/2020 17:11:53 10/14/19 21 10/13/2020 CBC with diff abs lymphocytes auto 1.48 thou/ cumm 0.90-3 .00 Not Available [place] [address] , [place], [address], 10/13/2020 17:11:53 10/14/19 21 10/13/2020 CBC with diff abs monocytes auto 0.95 thou/ cumm 0.20-0 .80 high Not Available [place] [address], [place], [address], 10/13/2020 17:11:53 10/14/19 21 10/13/2020 CBC with diff abs eosinophils auto 0.19 thou/ cumm 0.00-0 .40 Not Available [place] [address], [place], [address], 10/13/2020 17:11:53 10/14/19 21 10/13/2020 CBC with diff abs basophils auto 0.04 thou/ cumm 0.00-0 .10 Not Available [place] [address] , [place], [address], 10/13/2020 17:11:53 10/14/19 21 10/13/2020 CMP, serum or plasm a glucose 126 mg/dL 74-100 high Not Available [place] [address], [place], [address], 10/13/2020 17:53:06 10/14/19 21 10/13/2020 CMP, serum or plasm a sodium 139 mmol/ L 136-14 5 Not Available [place] [address] [facility] [place], [address], 10/13/2020 17:53:06 10/14/19 21 10/13/2020 CMP, serum or plasm a potassium 3.3 mmol/ L 3.5-5. 2 low Not Available [address] [facility] [place], [address], 10/13/2020 17:53:06 10/14/19 21 10/13/2020 CMP, serum or plasm a chloride 99 mmol/ L 98-107 Not Available [address] [facility] [place] [place], [address], 10/13/2020 17:53:06 10/14/19 21 10/13/2020 CMP, serum or plasm a CO2 28 mmol/ L 22-29 Not Available [address] [facility] [place], [address], 10/13/2020 17:53:06 10/14/19 21 10/13/2020 CMP, serum or plasm a anion gap 12.0 7.0-17 .0 Not Available [address], [place], [address], 10/13/2020 17:53:06 10/14/19 21 10/13/2020 CMP, serum or plasm a calcium 9.7 mg/dL 8.6-10 .5 Not Available [address] [facility] [place] [place], [address], 10/13/2020 17:53:06 10/14/19 21 10/13/2020 CMP, serum or plasm a BUN 15 mg/dL 6-20 Not Available [address], [place], [address], 10/13/2020 17:53:06 10/14/19 21 10/13/2020 CMP, serum or plasm a creatinine 1.20 mg/dL 0.70-1 .20 Not Available [facility] [address], [place], [address], 10/13/2020 17:53:06 10/14/19 21 10/13/2020 CMP, serum or plasm a eGFR >60.0 Not Available [place] [address] [facility], [place], [address], 10/13/2020 17:53:06 10/14/19 21 10/13/2020 CMP, serum or plasm a eGFR nonafrican somali >60.0 eGFR Refer ence Range >60 ml/mi n/1.7 3m2 Estim ated GFR IDMS- trace able MDRD Study Equat ion used. The equat ion has not been valid ated in child trevon (age <18 years ),pre gnant women , the elder ly (age >8 5 years ), or in some racia l or ethni c subgr oups, such as Hispa nics. Extre me body size, muscl e mass, or nutri ziyad l statu s may alter the eGFR. Refer to K/DOQ I guide lines for resul ts <60 (Kidn ey Disea se Outco mes Quali ty Initi ative ) Not Available [place] [address], [place], [address], 10/13/2020 17:53:06 10/14/19 21 10/13/2020 CMP, serum or plasm a BUN-creatini ne ratio 13 10-20 Not Available [place] [address], [place], [address], 10/13/2020 17:53:06 10/14/19 21 10/13/2020 CMP, serum or plasm a protein total 7.3 gm/dL 6.4-8. 3 Not Available [place] [address], [place], [address], 10/13/2020 17:53:06 10/14/19 21 10/13/2020 CMP, serum or plasm a albumin 4.7 gm/dL 3.5-5. 2 Renal Patie nts 3.1-4 .6 gm/dL Not Available [place] [address], [place], [address], 10/13/2020 17:53:06 10/14/19 21 10/13/2020 CMP, serum or plasm a globulin 2.6 gm/dL 1.4-4. 7 Not Available [place] [address], [place], [address], 10/13/2020 17:53:06 10/14/19 21 10/13/2020 CMP, serum or plasm a albumin globulin ratio 1.8 1.2-3. 6 Not Available [place] [address] , [place], [address], 10/13/2020 17:53:06 10/14/19 21 10/13/2020 CMP, serum or plasm a alkaline phosphatase 54 U/L 40-129 Not Available [place] [address], [place], [address], 10/13/2020 17:53:06 10/14/19 21 10/13/2020 CMP, serum or plasm a AST 15 U/L 0-40 Not Available [place] [address] , [place], [address], 10/13/2020 17:53:06 10/14/19 21 10/13/2020 CMP, serum or plasm a ALT 13 U/L 0-41 Not Available [place] [address] , [place], [address], 10/13/2020 17:53:06 10/14/19 21 10/13/2020 CMP, serum or plasm a bilirubin total 0.98 mg/dL 0.00-1 .20 Not Available [place] [address] [facility] [place] [place], [address], 10/13/2020 17:53:06 10/14/19 21 10/13/2020 iron profi le iron 186 ug/dL 59-158 high Not Available [place] [address], [place], [address], 10/13/2020 22:06:40 10/14/19 21 10/13/2020 iron profi le iron binding capacity 257 ug/dL 250-45 0 Not Available [place] [address] [facility], [place], [address], 10/13/2020 22:06:40 10/14/19 21 10/13/2020 iron profi le UIBC 71 ug/dL 112-34 7 low Not Available [place] [address] [facility] [place] [place], [address], 10/13/2020 22:06:40 10/14/19 21 10/13/2020 iron profi le percent saturation 72 % 20-50 high Iron Value s may be false ly eleva monet in serum sampl es from [facility] treat ed with antic oagul ants and iron- conta ining compo unds such as iron dextr an. Not Available [place] [address] [facility] [place] [place], [address], 10/13/2020 22:06:40 10/14/19 21 10/13/2020 radha tin ferritin 175 NG/mL 30-400 Iron Defic ient <10 ng/ml Sampl es shoul d not be taken from [facility] recei ving thera py with high bioti n doses (i.e. >5 mg/da y) until at least 8 hours follo wing the last bioti n admin istra tion. For diagn ostic purpo ses, the resul ts shoul d alway s be asses sed in [facility]io [facility], clini breann exami natio n and other findi ngs. Not Available [place] [address], [place], [address], 10/13/2020 22:06:43 08/17/19 22 08/17/2021 CBC WITH DIFF WBC =10.08 thou/ cumm 3.90-1 1.20 Not Available [facility] ([facility]) [address] , [place], [address], 08/17/2021 15:18:58 08/17/19 22 08/17/2021 CBC WITH DIFF RBC =5.29 mill/ cumm 3.70-5 .70 Not Available [facility] ([facility]) [address], [place], [address], 08/17/2021 15:18:58 08/17/19 22 08/17/2021 CBC WITH DIFF hemoglobin =16.8 g/dL 11.7-1 7.3 Not Available [facility] ([facility]) [address], [place], [address], 08/17/2021 15:18:58 08/17/19 22 08/17/2021 CBC WITH DIFF hematocrit =48.3 % 36.5-5 0.0 Not Available [facility] ([facility]) [address], [place], [address], 08/17/2021 15:18:58 08/17/19 22 08/17/2021 CBC WITH DIFF MCV =91.3 fL 82.0-1 00.0 Not Available [facility] ([facility]) [address], [place], [address], 08/17/2021 15:18:58 08/17/19 22 08/17/2021 CBC WITH DIFF MCH =31.8 pg 26.0-3 4.0 Not Available [facility] ([facility]) [address], [place], [address], 08/17/2021 15:18:58 08/17/19 22 08/17/2021 CBC WITH DIFF MCHC =34.8 g/dL 32.0-3 6.0 Not Available [facility] ([facility]) [address] [place], [address], 08/17/2021 15:18:58 08/17/19 22 08/17/2021 CBC WITH DIFF rdwsd =40.2 fL 35.1-4 6.8 Not Available [facility] ([facility]) [address], [place], [address], 08/17/2021 15:18:58 08/17/19 22 08/17/2021 CBC WITH DIFF MPV =8.8 fL 9.7-12 .8 low Not Available [facility] ([facility]) [address] [place], [address], 08/17/2021 15:18:58 08/17/19 22 08/17/2021 CBC WITH DIFF platelet count =217 thou/ cumm 140-44 0 Not Available [facility] ([facility]) [address] [place], [address], 08/17/2021 15:18:58 08/17/19 22 08/17/2021 CBC WITH DIFF neutrophils auto =66.9 % 40.0-7 7.0 Not Available [facility] ([facility]) [address] [place], [address], 08/17/2021 15:18:58 08/17/19 22 08/17/2021 CBC WITH DIFF immat granulocyte auto =0.2 % 0.0-0. 5 Not Available [facility] ([facility]) [address] [place], [address], 08/17/2021 15:18:58 08/17/19 22 08/17/2021 CBC WITH DIFF lymphocytes auto =19.7 % 14.0-4 7.0 Not Available [facility] ([facility]) [address] [place], [address], 08/17/2021 15:18:58 08/17/19 22 08/17/2021 CBC WITH DIFF monocytes auto =10.8 % 0.0-13 .0 Not Available [facility] ([facility]) [address], [place], [address], 08/17/2021 15:18:58 08/17/19 22 08/17/2021 CBC WITH DIFF eosinophils auto =1.7 % 0.0-7. 0 Not Available [facility] ([facility]) [address], [place], [address], 08/17/2021 15:18:58 08/17/19 22 08/17/2021 CBC WITH DIFF basophils auto =0.7 % 0.0-2. 0 Not Available [facility] ([facility]) [address], [place], [address], 08/17/2021 15:18:58 08/17/19 22 08/17/2021 CBC WITH DIFF NRBC auto =0.0 /100_ WBC 0.0-0. 2 Not Available [facility] ([facility]) [address], [place], [address], 08/17/2021 15:18:58 08/17/19 22 08/17/2021 CBC WITH DIFF abs NRBC auto <0.01 thou/ cumm 0.00-0 .01 Not Available [facility] ([facility]) [address], [place], [address], 08/17/2021 15:18:58 08/17/19 22 08/17/2021 CBC WITH DIFF abs neutrophils auto =6.74 thou/ cumm 2.00-6 .80 Not Available [facility] ([facility]) [address], [place], [address], 08/17/2021 15:18:58 08/17/19 22 08/17/2021 CBC WITH DIFF abs immat gran auto =0.02 thou/ cumm 0.00-0 .04 Not Available [facility] ([facility]) [address] [place], [address], 08/17/2021 15:18:58 08/17/19 22 08/17/2021 CBC WITH DIFF abs lymphocytes auto =1.99 thou/ cumm 0.90-3 .00 Not Available [facility] ([facility]) [address] [place], [address], 08/17/2021 15:18:58 08/17/19 22 08/17/2021 CBC WITH DIFF abs monocytes auto =1.09 thou/ cumm 0.20-0 .80 high Not Available [facility] ([facility]) [address] [place], [address], 08/17/2021 15:18:58 08/17/19 22 08/17/2021 CBC WITH DIFF abs eosinophils auto =0.17 thou/ cumm 0.00-0 .40 Not Available [facility] ([facility]) [address] [place], [address], 08/17/2021 15:18:58 08/17/19 22 08/17/2021 CBC WITH DIFF abs basophils auto =0.07 thou/ cumm 0.00-0 .10 Not Available [facility] ([facility]) [address] [place], [address], 08/17/2021 15:18:58 08/17/19 22 08/17/2021 COMPR EHENS SINAN METAB OLIC PANEL glucose =100 mg/dL 74-100 Not Available [facility] ([facility]) [address] [place], [address], 08/17/2021 18:10:06 08/17/19 22 08/17/2021 COMPR EHENS SINAN METAB OLIC PANEL sodium =141 mmol/ L 136-14 5 Not Available [facility] ([facility]) [address] [place], [address], 08/17/2021 18:10:06 08/17/19 22 08/17/2021 COMPR EHENS SINAN METAB OLIC PANEL potassium =4.1 mmol/ L 3.5-5. 2 Not Available [facility] ([facility]) [address] , [place], [address], 08/17/2021 18:10:06 08/17/19 22 08/17/2021 COMPR EHENS SINAN METAB OLIC PANEL chloride =100 mmol/ L 98-107 Not Available [facility] ([facility]) [address] , [place], [address], 08/17/2021 18:10:06 08/17/19 22 08/17/2021 COMPR EHENS SINAN METAB OLIC PANEL CO2 =28 mmol/ L 22-29 Not Available [facility] ([facility]) [address] , [place], [address], 08/17/2021 18:10:06 08/17/19 22 08/17/2021 COMPR EHENS SINAN METAB OLIC PANEL anion gap =13.0 7.0-17 .0 Not Available [facility] ([facility]) [address], [place], [address], 08/17/2021 18:10:06 08/17/19 22 08/17/2021 COMPR EHENS SINAN METAB OLIC PANEL calcium =9.4 mg/dL 8.6-10 .5 Not Available [facility] ([facility]) [address], [place], [address], 08/17/2021 18:10:06 08/17/19 22 08/17/2021 COMPR EHENS SINAN METAB OLIC PANEL BUN =20 mg/dL 6-20 Not Available [facility] ([facility]) [address], [place], [address], 08/17/2021 18:10:06 08/17/19 22 08/17/2021 COMPR EHENS SINAN METAB OLIC PANEL creatinine =1.36 mg/dL 0.70-1 .20 high Not Available [facility] ([facility]) [address] [place], [address], 08/17/2021 18:10:06 08/17/19 22 08/17/2021 COMPR EHENS SINAN METAB OLIC PANEL eGFR >60.0 Not Available [facility] ([facility]) [address] [place], [address], 08/17/2021 18:10:06 08/17/19 22 08/17/2021 COMPR EHENS SINAN METAB OLIC PANEL eGFR nonafric americ =55.7 eGFR Refer ence Range >60 ml/mi n/1.7 3m2 Estim ated GFR IDMS- trace able MDRD Study Equat ion used. The equat ion has not been valid ated in child trevon (age <18 years ),pre gnant women , the elder ly (age >8 5 years ), or in some racia l or ethni c subgr oups, such as Hispa nics. Extre me body size, muscl e mass, or nutri ziyad l statu s may alter the eGFR. Refer to K/DOQ I guide lines for resul ts <60 (Kidn ey Disea se Outco mes Quali ty Initi ative ) Not Available [facility] ([facility]) [address] [place], [address], 08/17/2021 18:10:06 08/17/19 22 08/17/2021 COMPR EHENS SINAN METAB OLIC PANEL BUN-creatini ne ratio =15 10-20 Not Available [facility] ([facility]) [address] [place], [address], 08/17/2021 18:10:06 08/17/19 22 08/17/2021 COMPR EHENS SINAN METAB OLIC PANEL protein total =6.9 gm/dL 6.4-8. 3 Not Available [facility] ([facility]) [address] [place], [address], 08/17/2021 18:10:06 08/17/19 22 08/17/2021 COMPR EHENS SINAN METAB OLIC PANEL albumin =4.0 gm/dL 3.5-5. 2 Renal Patie nts 3.1-4 .6 gm/dL Not Available [facility] ([facility]) [address] , [place], [address], 08/17/2021 18:10:06 08/17/19 22 08/17/2021 COMPR EHENS SINAN METAB OLIC PANEL globulin =2.9 gm/dL 1.4-4. 7 Not Available [facility] ([facility]) [address] , [place], [address], 08/17/2021 18:10:06 08/17/19 22 08/17/2021 COMPR EHENS SINAN METAB OLIC PANEL albumin/glob ulin ratio =1.4 1.2-3. 6 Not Available [facility] ([facility]) [address] [place], [address], 08/17/2021 18:10:06 08/17/19 22 08/17/2021 COMPR EHENS SINAN METAB OLIC PANEL alkaline phosphatase =58 U/L 40-129 Not Available [facility] ([facility]) [address] [place], [address], 08/17/2021 18:10:06 08/17/19 22 08/17/2021 COMPR EHENS SINAN METAB OLIC PANEL AST =18 U/L 0-40 Not Available [facility] ([facility]) [address] [place], [address], 08/17/2021 18:10:06 08/17/19 22 08/17/2021 COMPR EHENS SINAN METAB OLIC PANEL ALT =18 U/L 0-41 Not Available [facility] ([facility]) [address] [place], [address], 08/17/2021 18:10:06 08/17/19 22 08/17/2021 COMPR EHENS SINAN METAB OLIC PANEL bilirubin total =1.09 mg/dL 0.00-1 .20 Not Available [facility] ([facility]) [address] , [place], [address], 08/17/2021 18:10:06 08/17/19 22 08/17/2021 RADHA TIN ferritin =358 NG/mL 30-400 Iron Defic ient <10 ng/ml Sampl es shoul d not be taken from patie nts recei ving thera py with high bioti n doses (i.e. >5 mg/da y) until at least 8 hours follo wing the last bioti n admin istra tion. For diagn ostic purpo ses, the resul ts shoul d alway s be asses sed in conju nctio n with the patie nt's medic al histo ry, clini breann exami natio n and other findi ngs. Not Available [facility] (All [facility]) [address] , [place], [address], 08/17/2021 18:22:28 08/17/19 22 08/17/2021 IRON PROFI LE iron =162 ug/dL 59-158 high Not Available [facility] ([facility]) [address] [place], [address], 08/17/2021 18:22:29 08/17/19 22 08/17/2021 IRON PROFI LE iron binding capacity =251 ug/dL 250-45 0 Not Available [facility] ([facility]) [address] [place], [address], 08/17/2021 18:22:29 08/17/19 22 08/17/2021 IRON PROFI LE UIBC =89 ug/dL 112-34 7 low Not Available [facility] ([facility]) [address] [place], [address], 08/17/2021 18:22:29 08/17/19 22 08/17/2021 IRON PROFI LE percent saturation =65 % 20-50 high Iron Value s may be false ly eleva monet in serum sampl es from patie nts treat ed with antic oagul ants and iron- conta ining compo unds such as iron dextr an. Not Available [facility] ([facility]) [address] , [place], [address], 08/17/2021 18:22:29 12/08/19 22 12/07/2021 CBC WITH DIFF WBC =6.17 thou/ cumm 3.90-1 1.20 Not Available [facility] ([facility]) [address], [place], [address], 12/07/2021 15:10:05 12/08/19 22 12/07/2021 CBC WITH DIFF RBC =5.45 mill/ cumm 3.70-5 .70 Not Available [facility] ([facility]) [address], [place], [address], 12/07/2021 15:10:05 12/08/19 22 12/07/2021 CBC WITH DIFF hemoglobin =17.1 g/dL 11.7-1 7.3 Not Available [facility] ([facility]) [address], [place], [address], 12/07/2021 15:10:05 12/08/19 22 12/07/2021 CBC WITH DIFF hematocrit =49.0 % 36.5-5 0.0 Not Available [facility] ([facility]) [address] [place], [address], 12/07/2021 15:10:05 12/08/19 22 12/07/2021 CBC WITH DIFF MCV =89.9 fL 82.0-1 00.0 Not Available [facility] ([facility]) [address] [place], [address], 12/07/2021 15:10:05 12/08/19 22 12/07/2021 CBC WITH DIFF MCH =31.4 pg 26.0-3 4.0 Not Available [facility] ([facility]) [address], [place], [address], 12/07/2021 15:10:05 12/08/19 22 12/07/2021 CBC WITH DIFF MCHC =34.9 g/dL 32.0-3 6.0 Not Available [facility] ([facility]) [address], [place], [address], 12/07/2021 15:10:12/08/19 22 12/07/2021 CBC WITH DIFF rdwsd =38.9 fL 35.1-4 6.8 Not Available [facility] ([facility]) [address], [place], [address], 12/07/2021 15:10:12/08/19 22 12/07/2021 CBC WITH DIFF MPV =9.3 fL 9.7-12 .8 low Not Available [facility] ([facility]) [address], [place], [address], 12/07/2021 15:10:05 12/08/19 22 12/07/2021 CBC WITH DIFF platelet count =211 thou/ cumm 140-44 0 Not Available [facility] ([facility]) [address], [place], [address], 12/07/2021 15:10:05 12/08/19 22 12/07/2021 CBC WITH DIFF neutrophils auto =63.6 % 40.0-7 7.0 Not Available [facility] ([facility]) [address], [place], [address], 12/07/2021 15:10:12/08/19 22 12/07/2021 CBC WITH DIFF immat granulocyte auto =0.3 % 0.0-0. 5 Not Available [facility] ([facility]) [address] [place], [address], 12/07/2021 15:10:05 12/08/19 22 12/07/2021 CBC WITH DIFF lymphocytes auto =20.4 % 14.0-4 7.0 Not Available [facility] ([facility]) [address] , [place], [address], 12/07/2021 15:10:05 12/08/19 22 12/07/2021 CBC WITH DIFF monocytes auto =11.5 % 0.0-13 .0 Not Available [facility] ([facility]) [address] , [place], [address], 12/07/2021 15:10:05 12/08/19 22 12/07/2021 CBC WITH DIFF eosinophils auto =3.4 % 0.0-7. 0 Not Available [facility] ([facility]) [address] , [place], [address], 12/07/2021 15:10:05 12/08/19 22 12/07/2021 CBC WITH DIFF basophils auto =0.8 % 0.0-2. 0 Not Available [facility] ([facility]) [address], [place], [address], 12/07/2021 15:10:05 12/08/19 22 12/07/2021 CBC WITH DIFF NRBC auto =0.0 /100_ WBC 0.0-0. 2 Not Available [facility] ([facility]) [address], [place], [address], 12/07/2021 15:10:05 12/08/19 22 12/07/2021 CBC WITH DIFF abs NRBC auto <0.01 thou/ cumm 0.00-0 .01 Not Available [facility] ([facility]) [address] , [place], [address], 12/07/2021 15:10:05 12/08/19 22 12/07/2021 CBC WITH DIFF abs neutrophils auto =3.92 thou/ cumm 2.00-6 .80 Not Available [facility] ([facility]) [address], [place], [address], 12/07/2021 15:10:05 12/08/19 22 12/07/2021 CBC WITH DIFF abs immat gran auto =0.02 thou/ cumm 0.00-0 .04 Not Available [facility] ([facility]) [address], [place], [address], 12/07/2021 15:10:05 12/08/19 22 12/07/2021 CBC WITH DIFF abs lymphocytes auto =1.26 thou/ cumm 0.90-3 .00 Not Available [facility] ([facility]) [address], [place], [address], 12/07/2021 15:10:05 12/08/19 22 12/07/2021 CBC WITH DIFF abs monocytes auto =0.71 thou/ cumm 0.20-0 .80 Not Available [facility] ([facility]) [address], [place], [address], 12/07/2021 15:10:05 12/08/19 22 12/07/2021 CBC WITH DIFF abs eosinophils auto =0.21 thou/ cumm 0.00-0 .40 Not Available [facility] ([facility]) [address], [place], [address], 12/07/2021 15:10:05 12/08/19 22 12/07/2021 CBC WITH DIFF abs basophils auto =0.05 thou/ cumm 0.00-0 .10 Not Available [facility] ([facility]) [address] [place], [address], 12/07/2021 15:10:05 12/08/19 22 12/07/2021 RADHA TIN ferritin =309 NG/mL 30-400 Iron Defic ient <10 ng/ml Sampl bouchra colvin d not be taken from patie nts recei ving thera py with high bioti n doses (i.e. >5 mg/da y) until at least 8 hours follo wing the last bioti n admin istra tion. For diagn ostic purpo ses, the resul ts vinicius ortiz s be asses sed in conju nctio n with the patie nt's medic al histo ry, clini breann exami natio n and other findi ngs. Not Available [facility] ([facility]) [address] , [place], [address], 12/07/2021 18:29:20 12/08/19 22 12/07/2021 IRON PROFI LE iron =173 ug/dL 59-158 high Not Available [facility] ([facility]) [address] , [place], [address], 12/07/2021 18:29:23 12/08/19 22 12/07/2021 IRON PROFI LE iron binding capacity =236 ug/dL 250-45 0 low Not Available [facility] ([facility]) [address] , [place], [address], 12/07/2021 18:29:23 12/08/19 22 12/07/2021 IRON PROFI LE UIBC =63 ug/dL 112-34 7 low Not Available [facility] ([facility]) [address] , [place], [address], 12/07/2021 18:29:23 12/08/19 22 12/07/2021 IRON PROFI LE percent saturation =73 % 20-50 high Iron Value s may be false ly eleva monet in serum sampl es from [facility] treat ed with antic oagul ants and iron- conta ining compo unds such as iron dextr an. Not Available [facility] ([facility]) [address] , [place], [address], 12/07/2021 18:29:23 12/08/19 22 12/07/2021 COMPR EHENS SINAN METAB OLIC PANEL glucose =207 mg/dL 74-100 high Not Available [facility] ([facility]) [address], [place], [address], 12/07/2021 18:31:16 12/08/19 22 12/07/2021 COMPR EHENS SINAN METAB OLIC PANEL sodium =139 mmol/ L 136-14 5 Not Available [facility] ([facility]) [address], [place], [address], 12/07/2021 18:31:16 12/08/19 22 12/07/2021 COMPR EHENS SINAN METAB OLIC PANEL potassium =4.1 mmol/ L 3.5-5. 2 Not Available [facility] ([facility]) [address], [place], [address], 12/07/2021 18:31:16 12/08/19 22 12/07/2021 COMPR EHENS SINAN METAB OLIC PANEL chloride =101 mmol/ L 98-107 Not Available [facility] ([facility]) [address], [place], [address], 12/07/2021 18:31:16 12/08/19 22 12/07/2021 COMPR EHENS SINAN METAB OLIC PANEL CO2 =21 mmol/ L 22-29 low Not Available [facility] ([facility]) [address] [place], [address], 12/07/2021 18:31:16 12/08/19 22 12/07/2021 COMPR EHENS SINAN METAB OLIC PANEL anion gap =17.0 7.0-17 .0 Not Available [facility] ([facility]) [address] [place], [address], 12/07/2021 18:31:16 12/08/19 22 12/07/2021 COMPR EHENS SINAN METAB OLIC PANEL calcium =9.3 mg/dL 8.6-10 .5 Not Available [facility] ([facility]) [address] [place], [address], 12/07/2021 18:31:16 12/08/19 22 12/07/2021 COMPR EHENS SINAN METAB OLIC PANEL BUN =17 mg/dL 6-20 Not Available [facility] ([facility]) [address] [place], [address], 12/07/2021 18:31:16 12/08/19 22 12/07/2021 COMPR EHENS SINAN METAB OLIC PANEL creatinine =1.39 mg/dL 0.70-1 .20 high Not Available [facility] ([facility]) [address] , [place], [address], 12/07/2021 18:31:16 12/08/19 22 12/07/2021 COMPR EHENS SINAN METAB OLIC PANEL eGFR >60.0 Not Available [facility] ([facility]) [address] [place], [address], 12/07/2021 18:31:16 12/08/19 22 12/07/2021 COMPR EHENS SINAN METAB OLIC PANEL eGFR nonafric americ =54.2 eGFR Refer ence Range >60 ml/mi n/1.7 3m2 Estim ated GFR IDMS- trace able MDRD Study Equat ion used. The equat ion has not been valid ated in child trevon (age <18 years ),pre gnant women , the elder ly (age >8 5 years ), or in some racia l or ethni c subgr oups, such as Hispa nics. Extre me body size, muscl e mass, or nutri ziyad l statu s may alter the eGFR. Refer to K/DOQ I guide lines for resul ts <60 (Kidn ey Disea se Outco mes Quali ty Initi ative ) Not Available [facility] ([facility]) [address] [place], [address], 12/07/2021 18:31:16 12/08/19 22 12/07/2021 COMPR EHENS SINAN METAB OLIC PANEL BUN-creatini ne ratio =12 10-20 Not Available [facility] ([facility]) [address], [place], [address], 12/07/2021 18:31:16 12/08/19 22 12/07/2021 COMPR EHENS SINAN METAB OLIC PANEL protein total =7.3 gm/dL 6.4-8. 3 Not Available [facility] ([facility]) [address], [place], [address], 12/07/2021 18:31:16 12/08/19 22 12/07/2021 COMPR EHENS SINAN METAB OLIC PANEL albumin =4.1 gm/dL 3.5-5. 2 Renal Patie nts 3.1-4 .6 gm/dL Not Available [facility] ([facility]) [address], [place], [address], 12/07/2021 18:31:16 12/08/19 22 12/07/2021 COMPR EHENS SINAN METAB OLIC PANEL globulin =3.2 gm/dL 1.4-4. 7 Not Available [facility] ([facility]) [address], [place], [address], 12/07/2021 18:31:16 12/08/19 22 12/07/2021 COMPR EHENS SINAN METAB OLIC PANEL albumin/glob ulin ratio =1.3 1.2-3. 6 Not Available [facility] ([facility]) [address], [place], [address], 12/07/2021 18:31:16 12/08/19 22 12/07/2021 COMPR EHENS SINAN METAB OLIC PANEL alkaline phosphatase =52 U/L 40-129 Not Available [facility] ([facility]) [address], [place], [address], 12/07/2021 18:31:16 12/08/19 22 12/07/2021 COMPR EHENS SINAN METAB OLIC PANEL AST =23 U/L 0-40 Not Available [facility] ([facility]) [address] , [place], [address], 12/07/2021 18:31:16 12/08/19 22 12/07/2021 COMPR EHENS SINAN METAB OLIC PANEL ALT =17 U/L 0-41 Not Available [facility] ([facility]) [address] [place], [address], 12/07/2021 18:31:16 12/08/19 22 12/07/2021 COMPR EHENS SINAN METAB OLIC PANEL bilirubin total =0.89 mg/dL 0.00-1 .20 Not Available [facility] ([facility]) [address] , [place], [address], 12/07/2021 18:31:16 12/08/19 22 12/07/2021 ALPHA FETOP ROTEI N alpha fetoprotein =2.6 NG/mL Male <=8.3 0 ng/mL Femal e <=8.3 0 ng/mL (non- pregn ant) This test was perfo rmed using the He elect he milum inesc ence immun oassa y metho d. Value s obtai papo from other metho ds shoul d not be [facility] e[facility] . AFP level s shoul d not be inter prete d as absol jayleen evide nce of the prese nce or absen ce of disea se. Sampl es shoul d not be taken from patie nts recei ving thera py with high bioti n doses (i.e. >5 mg/da y) until at least 8 hours follo wing the last bioti n admin istra tion. For diagn ostic purpo ses, the resul ts shoul d alway s be asses sed in conju nctio n with the patie nt's medic al histo ry, clini breann exami natio n and other findi ngs. Not Available [facility] ([facility]) [address] [place], [address], 12/07/2021 21:40:21 Result Notes None recorded. Problems Name Problem SNOMED Code Status Onset Date Resolution Date Notes Provider Name and Address Organization Details Recorded Time Hereditary hemochroma tosis 87879942 Active 2020 Hereditary hemochromat osis Ron Jorge 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 19:12:15 Problem Notes None recorded. Medical Equipment None Reported. Allergies No known drug allergies Medications Name Sig Start Date Stop Date Status Note LastModified by Organization Details LastModified Time Prescript ion - New active testoste abimael cyp. /needles Not Available Not Available Not Available doxycycli ne hyclate 100 mg capsule TAKE 1 CAPSULE BY MOUTH EVERY DAY active Not Available Not Available No t Available alprazola m 1 mg tablet TAKE ONE TABLET BY MOUTH TWICE A DAY NEEDED FOR ANXIETY 12/07 completed Not Available Not Available Not Available bisoprolo l 10 mg-hydroc hlorothia zide 6.25 mg tablet TAKE ONE TABLET BY MOUTH ONE TIME DAILY 12/07 completed Not Available Not Available Not Available sumatript an 100 mg tablet PLEASE SEE ATTACHED FOR DETAILED DIRECTIO NS active Not Available Not Available No t Available hydrocodo ne 5 mg-acetam inophen 325 mg tablet TAKE ONE TO TWO TABLETS BY MOUTH EVERY 4 TO 6 HOURS NEEDED FOR PAIN 10/27 completed Not Available Not Available Not Available minocycli ne 100 mg capsule TAKE ONE CAPSULE BY MOUTH TWICE A DAY WITH FOOD 10/27 completed Not Available Not Available Not Available ondansetr on HCl 4 mg tablet TAKE ONE TABLET BY MOUTH EVERY 6 TO 8 HOURS NEEDED FOR NAUSEA AND VOMITING 10/27 completed Not Available Not Available Not Available acetamino phen 300 mg-codein e 30 mg tablet TAKE ONE TABLET BY MOUTH EVERY 4 TO 6 HOURS NEEDED FOR PAIN 10/27 completed Not Available Not Available Not Available hydrocodo ne 10 mg-acetam inophen 325 mg tablet TAKE ONE TABLET BY MOUTH EVERY 6 HOURS NEEDED FOR PAIN 10/27 completed Not Available Not Available Not Available ondansetr on 8 mg disintegr ating tablet DISSOLVE ONE TABLET BY MOUTH EVERY 6 HOURS NEEDED active Not Available Not Available No t Available Adderall XR 20 mg capsule,e xtended release TAKE ONE CAPSULE BY MOUTH EVERY MORNING 12/07 completed Not Available Not Available Not Available verapamil 120 mg tablet TAKE 1 TABLET BY MOUTH TWICE A DAY active Not Available Not Available No t Available alprazola m 0.5 mg tablet TAKE 1 TABLET TWICE A DAY BY ORAL ROUTE NEEDED. active Not Available Not Available No t Available propranol ol 10 mg tablet TAKE ONE TABLET BY MOUTH TWICE A DAY 12/07 completed Not Available Not Available Not Available clindamyc in 1 % topical gel APPLY TO THE AFFECTED AREA(S) TOPICALL Y TWICE DAILY active Not Available Not Available No t Available losartan 25 mg tablet 12/07 completed Not Available Not Available Not Available diclofena c potassium 50 mg tablet 12/07 completed Not Available Not Available Not Available hydrochlo rothiazid e 25 mg tablet TAKE ONE TABLET BY MOUTH ONE TIME DAILY 10/27 completed Not Available Not Available Not Available testoster one cypionate 200 mg/mL intramusc ular oil INJECT 150 MG IN THE MUSCLE ONCE A WEEK active Not Available Not Available No t Available methylpre dnisolone 4 mg tablets in a dose pack TAKE DIRECTED ON PACKAGE 10/27 completed Not Available Not Available Not Available propranol ol 20 mg tablet TAKE 1 TABLET BY MOUTH TWICE A DAY active Not Available Not Available No t Available doxycycli ne hyclate 100 mg tablet TAKE 1 TABLET BY MOUTH EVERY DAY active Not Available Not Available No t Available diazepam 5 mg tablet TAKE 1 TABLET BY MOUTH NEEDED active Not Available Not Available No t Available amoxicill in 875 mg-potass ium clavulana te 125 mg tablet TAKE ONE TABLET BY MOUTH TWICE A DAY FOR 7 DAYS 10/27 completed Not Available Not Available Not Available erythromy deny-benzo yl peroxide 3 %-5 % topical gel APPLY TO THE AFFECTED AREA(S) TOPICALL Y TWICE DAILY active Not Available Not Available No t Available clindamyc in phosphate 1 % topical solution APPLY TO AFFECTED AREA TWICE A DAY active Not Available Not Available No t Available hydroxyzi ne pamoate 25 mg capsule TAKE 1 TO 2 TABS BY MOUTH AT ONSET OF HEADACHE , MAY REPEAT IN 4 HRS, MAX 2 DOSES/DA Y, 2 DAYS/WEE K active Not Available Not Available No t Available Xyrem 500 mg/mL oral solution active Not Available Not Available Not Available tadalafil 5 mg tablet TAKE 1 TABLET BY MOUTH EVERY DAY active Not Available Not Available No t Available Viibryd 40 mg tablet 12/07 completed Not Available Not Available Not Available vilazodon e 20 mg tablet TAKE 1 TABLET BY MOUTH EVERY DAY active Not Available Not Available No t Available Fetzima 40 mg capsule,e xtended release TAKE 1 CAPSULE BY MOUTH EVERY DAY 12/07 completed Not Available Not Available Not Available Fetzima 20 mg capsule,e xtended release TAKE 1 CAPSULE BY MOUTH EVERY DAY 12/07 completed Not Available Not Available Not Available Ajovy Syringe 225 mg/1.5 mL subcutane ous INJECT 1.5 ML SUBCUTAN EOUSLY EVERY MONTH active Not Available Not Available No t Available Xyosted 100 mg/0.5 mL subcutane ous auto-inje ctor INJECT THE CONTENTS OF ONE PEN UNDER THE SKIN EVERY WEEK 10/27 completed Not Available Not Available Not Available Ubrelvy 50 mg tablet TAKE 1 TAB AT ONSET OF HEADACHE . MAY REPEAT IN 2HRS. MAX 2 TABS PER DAY, 2 DAYS PER WEEK active Not Available Not Available No t Available Reyvow 50 mg tablet active Not Available Not Available No t Available Nurtec ODT 75 mg disintegr ating tablet 12/07 completed Not Available Not Available Not Available ID NOW COVID-19 Test Kit TEST DIRECTED TODAY 12/07 completed Not Available Not Available Not Available Qulipta 30 mg tablet TAKE 1 TABLET BY MOUTH EVERYDAY AT BEDTIME active Not Available Not Available No t Available Vitals Date Recorded Body height Body mass index (BMI) Body weight Body temperature Heart rate Respiratory rate Systolic blood pressure Diastolic blood pressure Provider Name and Address Organization Details Last Updated DateTime 2 175.26 cm 27.9 kg/m2 85174.6 8 g 96.4 [degF] 57 /min 16 /min 134 mm[Hg] 85 mm[Hg] Fabi Hiram [facility] 2 12:00:17 Date Recorded Body height Body mass index (BMI) Body weight Heart rate Systolic blood pressure Diastolic blood pressure Provider Name and Address Organization Details Last Updated DateTime 1 175.26 cm 25.7 kg/m2 50349.0 7 g 67 /min 122 mm[Hg] 84 mm[Hg] Myla Harayda [facility] 1 11:26:53 Date Recorded Body height Body mass index (BMI) Body weight Body temperature Respiratory rate Heart rate Systolic blood pressure Diastolic blood pressure Provider Name and Address Organization Details Last Updated DateTime 2 175.26 cm 28.4 kg/m2 29042.1 7 g 97.9 [degF] 16 /min 60 /min 116 mm[Hg] 73 mm[Hg] Ibeth Osman [facility] 2 11:29:03 Social History Question Answer Notes LastModified by [employer] ion Details LastModified Time Tobacco Smoking Status Former Smoker Fabi Chanceadriana zavala, [facility] 08/31/2021 12:04:01 Do You Have An Advance Directive? No Information n ot available 08/31/2021 Are You Currently Sexually Active With Anyone Who Has Traveled (within The Last 12 Weeks) To A Zika-affected Area? No Information not available 08/31/2021 Are You Blind Or Do You Have Difficulty Seeing? No Information n ot available 08/31/2021 In The 14 Days Before Symptom Onset, Have You Had Close Contact With A Laboratory-confirm ed COVID-19 While That Case Was Ill? No Information n ot available 08/31/2021 In The 14 Days Before Symptom Onset, Have You Had Close Contact With A Person Who Is Under Investigation For COVID-19 While That Person Was Ill? No Information not available 08/31/2021 Have You Been To An Area Known To Be High Risk For COVID-19? No Information not available 08/31/2021 Are You Deaf Or Do You Have Serious Difficulty Hearing? No Information not available 08/31/2021 Have You Recently Or Are You Planning To Travel To An Area With Zika Virus? No Information not available 08/31/2021 Have You Recently Traveled Abroad? No Information not available 08/31/2021 Do You Have Difficulty Walking Or Climbing Stairs? No Information not available 08/31/2021 Sex: Unknown Functional Status Question Answer Note LastModified by Organizat ion Details LastModified Time Do you or have you ever used any other forms of tobacco or nicotine? No Information not available 08/31/2021 Do you have transportation difficulties? No Information not available 08/31/2021 Do you have difficulty doing errands alone? No Information not available 08/31/2021 Are you able to care for yourself? Yes Information not available 08/31/2021 Do you have difficulty dressing or bathing? No Information not available 08/31/2021 Mental Status Question Answer Note LastModified by Organizat ion Details LastModified Time Do you feel stressed (tense, restless, nervous, or anxious, or unable to sleep at night)? [id number] Information not available 08/31/2021 Do you have difficulty concentrating, remembering or making decisions? No Information no t available 08/31/2021 Family History Nothing Reported Notes:Family History: Mr. Wilber darden's mother is alive: Dementia, osteoporosis. Mr. Aguilar's father is alive: Hypertension, kidney disease, hyperlipidemia, diabetes mellitus, coronary artery disease. Mr. Aguilar has 1 paternal uncle who is : prostate cancer. The family history is otherwise unremarkable from hematology/oncology standpoint. Medical History No medical history recorded. Past Encounters Encounter ID Performer Location Encounter Start Date Encounter Closed Date Diagnosis/Indication Diagnosis SNOMED-CT Code Diagnosis ICD10 Code Diagnosis Note [id number] Braeden Lee MD [facility] [place] [address], [address] [place] [address] 10/27/2020 11:17:44 10/27/2020 12:01:51 Male hypogonadism 97120035 E29.1 Continue testostero ne cypionate three quarters of a cc every week. Recheck with labs in 6 monthsTest osterone replacemen t: Risks and benefits were discussed with the patient including prostate growth, prostate cancer progressio n, hair loss, increased hemoglobin , aggression , and risk of clotting disorders. Records from oncology and lab work were reviewed. Will review old records when available Chronic ki dney disease 285427624 N18.9 Referral to nephrology . Creatinine borderline elevated for his age at 1.2 [id number] MD WALE [facility]_ On[facility]_STE_[address] [place] [address] 08/31/2021 11:39:26 08/31/2021 15:40:26 Hereditary hemochromatosis 21477193 E83.110 [id number] MD W[facility]_ Onc_Hem_V _STE_10 [address] [place] [address] 12/07/2021 10:31:57 12/07/2021 12:30:24 Hereditary hemochromatosis 83935042 E83.110 Health Concerns Section Related Observation LastModified by Organization Detai ls LastModified Time None Recorded Concern Status LastModified by Organization Details LastModified Time None Recorded Advance Directives Directive N: Payers Insurance Date Sequence Insurance Name Policy Number Policy Wiggins Covered Member ID Wiggins Member ID Guarantor Name 08/27/2021 1 [place] [id number] Emory Aguilar [id number] Irvin Aguilar 08/27/2021 1 [place] [id number] Emory Aguilar [id number] Irvin Aguilar 03/07/2022 1 [employer] [facility] (O) [id number] Emory Aguilar [id number] Irvin Aguilar Notes Date Note Type Note Provider Name and Address Organization Details Recorded Time 10/27/2020 text/html 50-year-old male is seen in consultation secondary to hypogonadism. He has a history of hemochromatosis. He has a history of symptomatic hypogonadism with impaired libido and has been on testosterone injections for a while. I do not have records available to me. He has been using 150 mg of testosterone cypionate every week and symptomatically he is improved on this. When he was only using 1 cc every other week his symptoms did not improve. Reportedly he has a history of renal failure in the past possibly related to NSAID use. More recent creatinine was 1.2 which is high for his age although estimated GFR is greater than 60. I discussed we could follow this or refer him to nephrology and is requested a referral. He understands the risks of testosterone replacement. We will request old records but for now we will keep him on current doses and recheck in with labs in 6 months Braeden Lee MD [address] , [place], [address], [facility] 10/27/2020 11:54:24 08/31/2021 text/html Diagnosis:Primar y - E83.110 - Hereditary hemochromatosis, Diagnosed Sep 01, 2020 (Active)Primary - E83.19 - Other disorders of iron metabolism, Diagnosed Sep 01, 2020 (Active)Secondary - Z12.5 - Encounter for screening for malignant neoplasm of prostate, Diagnosed Sep 01, 2020 (Active)History of Present Illness:Mr. Irvin Aguilar is a 51-year-old gentleman with iron overload due to hereditary hemochromatosis who has been receiving phlebotomy every 1 to 3 months. Mr. Aguilar recently moved from [facility] to [facility] and would like to establish care with us. He last received phlebotomy in April 2020. At that time his blood work showed iron 180, iron saturation 68 ferritin 53 hemoglobin 17.4 hematocrit 50.2. He also received testosterone injection monthly by self injection for hypogonadism. Treatment to Date:Phlebotomies. Song Boothe MD [address] , [place], [address], [facility] 08/31/2021 12:49:01 12/07/2021 text/html Diagnosis:Primar y - E83.110 - Hereditary hemochromatosis, Diagnosed Sep 01, 2020 (Active)Primary - E83.19 - Other disorders of iron metabolism, Diagnosed Sep 01, 2020 (Active)Secondary - Z12.5 - Encounter for screening for malignant neoplasm of prostate, Diagnosed Sep 01, 2020 (Active)History of Present Illness:Mr. Irvin Aguilar is a 51-year-old gentleman with iron overload due to hereditary hemochromatosis who has been receiving phlebotomy every 1 to 3 months. Mr. Aguilar recently moved from [facility] to [facility] and would like to establish care with us. He last received phlebotomy in April 2020. At that time his blood work showed iron 180, iron saturation 68 ferritin 53 hemoglobin 17.4 hematocrit 50.2. He also received testosterone injection monthly by self injection for hypogonadism. Treatment to Date:Phlebotomies. Song Boothe MD [address] , [place], [address], [facility] 12/07/2021 12:28:48
--- OUTSIDE RECORDS SUMMARY | 2024-12-31 17:10 | XMS_ITS | Data Portability ---
Author Organization [facility], [employer] Address [address] [place] [address] Assessment No assessment recorded. Plan of Treatment Reminders Order Date Submit Date Provider Last Modified By Organization Details Last Modified Time Details Appointments None recorded. Lab lipid panel, blood 2020 DENEEN Not available 05:00:33 CMP, serum or plasma 2020 DENEEN Not available 11:29:50 CBC w/ auto diff 2020 DENEEN Not available 05:00:33 PSA, total + free, serum or plasma 2020 021 DENEEN Not available 05:00:33 Referral sleep medicine referral 2020 DENEENJIM Maddne MD, [address] [address], [place], [address], 05:00:29 neurologis t referral 2020 DENEEN Rooney MD, [address] [place], [address], 05:00:29 Procedures None recorded. Surgeries None recorded. Imaging None recorded. Medication Orders alprazolam 0.5 mg tablet 2021 022 [id number], [address] [place], [address], 2 10:32:33 propranolo l 20 mg tablet 2020 DENEEN [id number], [address] [place], [address], 11:40:31 testostero ne cypionate 200 mg/mL intramuscu lar oil 2020 021 [id number], [address] [place], [address], 11:40:54 hydrochlor othiazide 25 mg tablet 2020 [facility], [address], [place], [place], [id number], 11:13:47 tadalafil 5 mg tablet 2020 021 [facility], [address], [place], [place], [id number], 11:17:41 clindamyci n 1 % topical gel 2020 INTERFACE [facility], [address], [place], [place], [id number], 11:22:12 Viibryd 20 mg tablet 2020 INTERFACE [facility], [address], [place], [place], [id number], 11:17:07 Patient TargetsNo targets recorded. Patient Instructions Encounter Date Encounter Id Patient Instructions Last Modified By Organization Details Last Modified Time 09/29/2020 [id number] rash: care instructions Not available 09/29/2020 11:22:11 narcolepsy: care instructions Not available 09/29/2020 11:13:43 anxiety disorder : care instructions Not available 09/29/2020 11:17:04 learning about healthy weight Not available 09/29/2020 11:13:43 11/10/2020 [id number] learning about healthy weight Not available 11/10/2020 11:35:40 10/08/2021 [id number] learning about healthy weight Not available 10/08/2021 16:09:23 Reason for Referral Neurologist Referral for Jessee aston Referring Physician: John Saldaña, Internal Medicine, Encounter Date: 09/29/2020 Sleep Medicine Referral for Narcolepsy Referring Physician: John Saldaña, Internal Medicine, Encounter Date: 09/29/2020 Results Created Date Observation Date Name Description Value Unit Range Abnormal Flag Note LastModifiedBy Organization Detail LastModifiedTime Result Notes None recorded. 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 Medical Equipment None Reported. Allergies No known drug allergies Medications Name Sig Start Date Stop Date Status Note LastModified by Organization Details LastModified Time Prescriptio n - Prior Authorizati on Request active Not Available Not Available N ot Available alprazolam 1 mg tablet TAKE ONE TABLET BY MOUTH TWICE A DAY NEEDED FOR ANXIETY active Not Available Not Available No t Available bisoprolol 10 mg-hydrochl orothiazide 6.25 mg tablet TAKE ONE TABLET BY MOUTH ONE TIME DAILY 09/29 completed Not Available Not Available Not Available sumatriptan 100 mg tablet PLEASE SEE ATTACHED FOR DETAILED DIRECTION S active Not Available Not Available No t Available hydrocodone 5 mg-acetamin ophen 325 mg tablet TAKE ONE TO TWO TABLETS BY MOUTH EVERY 4 TO 6 HOURS NEEDED FOR PAIN 09/29 completed Not Available Not Available Not Available minocycline 100 mg capsule TAKE ONE CAPSULE BY MOUTH TWICE A DAY WITH FOOD active Not Available Not Available No t Available ondansetron HCl 4 mg tablet TAKE ONE TABLET BY MOUTH EVERY 6 TO 8 HOURS NEEDED FOR NAUSEA AND VOMITING 09/29 completed Not Available Not Available Not Available acetaminoph en 300 mg-codeine 30 mg tablet TAKE ONE TABLET BY MOUTH EVERY 4 TO 6 HOURS NEEDED FOR PAIN 09/29 completed Not Available Not Available Not Available hydrocodone 10 mg-acetamin ophen 325 mg tablet TAKE ONE TABLET BY MOUTH EVERY 6 HOURS NEEDED FOR PAIN active Not Available Not Available No t Available ondansetron 8 mg disintegrat ing tablet DISSOLVE ONE TABLET BY MOUTH EVERY 6 HOURS NEEDED active Not Available Not Available No t Available Adderall XR 20 mg capsule,ext ended release TAKE ONE CAPSULE BY MOUTH EVERY MORNING active Not Available Not Available No t Available verapamil 120 mg tablet TAKE 1 TABLET BY MOUTH TWICE A DAY active Not Available Not Available No t Available alprazolam 0.5 mg tablet Take 1 tablet twice a day by oral route as needed. 2021 active Not Available Not Available Not Avai lable propranolol 10 mg tablet TAKE ONE TABLET BY MOUTH TWICE A DAY 09/29 completed Not Available Not Available Not Available clindamycin 1 % topical gel APPLY TO THE AFFECTED AREA(S) TOPICALLY TWICE DAILY active Not Available Not Available No t Available losartan 25 mg tablet active Not Available Not Available No t Available diclofenac potassium 50 mg tablet TAKE 1 TABLET BY MOUTH AT ONSET OF HEADACHE MAY REPEAT IN 6 HOURS MAX 2 PER DAY MAX 2 DAYS PER WEEK active Not Available Not Available No t Available hydrochloro thiazide 25 mg tablet TAKE ONE TABLET BY MOUTH ONE TIME DAILY active Not Available Not Available No t Available testosteron e cypionate 200 mg/mL intramuscul ar oil INJECT 150 MG IN THE MUSCLE ONCE A WEEK 2021 active Not Available Not Available Not Avai lable methylpredn isolone 4 mg tablets in a dose pack TAKE DIRECTED ON PACKAGE 09/29 completed Not Available Not Available Not Available propranolol 20 mg tablet TAKE 1 TABLET BY MOUTH TWICE A DAY active Not Available Not Available No t Available doxycycline hyclate 100 mg tablet TAKE 1 TABLET BY MOUTH EVERY DAY active Not Available Not Available No t Available diazepam 5 mg tablet TAKE 1 TABLET BY MOUTH NEEDED active Not Available Not Available No t Available amoxicillin 875 mg-potassiu m clavulanate 125 mg tablet TAKE ONE TABLET BY MOUTH TWICE A DAY FOR 7 DAYS 09/29 completed Not Available Not Available Not Available erythromyci n-benzoyl peroxide 3 %-5 % topical gel APPLY TO THE AFFECTED AREA(S) TOPICALLY TWICE DAILY 09/29 completed Not Available Not Available Not Available clindamycin phosphate 1 % topical solution APPLY TO AFFECTED AREA TWICE A DAY active Not Available Not Available No t Available hydroxyzine pamoate 25 mg capsule 1-2 BY MOUTH AT ONSET OF HEADACHE, MAY REPEAT IN 4 HOURS, MAX 2 DOSES PER DAY, MAX 2 DAYS PER WEEK. active Not Available Not Available No t Available escitalopra m 20 mg tablet TAKE ONE TABLET BY MOUTH ONE TIME DAILY 09/29 completed Not Available Not Available Not Available Xyrem 500 mg/mL oral solution Take 4.5 mg by oral route twice at bedtime active Not Available Not Available No t Available tadalafil 5 mg tablet TAKE 1 TABLET BY MOUTH EVERY DAY active Not Available Not Available No t Available Viibryd 40 mg tablet active Not Available Not Available No t Available Viibryd 20 mg tablet TAKE ONE TABLET BY MOUTH ONE TIME DAILY 2021 active Not Available Not Available Not Avai lable Fetzima 40 mg capsule,ext ended release TAKE 1 CAPSULE BY MOUTH EVERY DAY active Not Available Not Available No t Available Fetzima 20 mg capsule,ext ended release TAKE 1 CAPSULE BY MOUTH EVERY DAY active Not Available Not Available No t Available Ajovy Syringe 225 mg/1.5 mL subcutaneou s INJECT 1.5 ML SUBCUTANE OUSLY EVERY MONTH active Not Available Not Available No t Available Xyosted 100 mg/0.5 mL subcutaneou s auto-inject or INJECT THE CONTENTS OF ONE PEN UNDER THE SKIN EVERY WEEK 09/29 completed Not Available Not Available Not Available Ubrelvy 50 mg tablet TAKE 1 TAB AT ONSET OF HEADACHE. MAY REPEAT IN 2HRS. MAX 2 TABS PER DAY, 2 DAYS PER WEEK active Not Available Not Available No t Available Reyvow 50 mg tablet PLEASE SEE ATTACHED FOR DETAILED DIRECTION S active Not Available Not Available No t Available Nurtec ODT 75 mg disintegrat ing tablet active Not Available Not Available N ot Available ID NOW COVID-19 Test Kit TEST DIRECTED TODAY active Not Available Not Available No t Available Qulipta 30 mg tablet TAKE 1 TABLET BY MOUTH EVERYDAY AT BEDTIME active Not Available Not Available No t Available Vitals Date Recorded Body height Body mass index (BMI) Body weight Body temperature Heart rate Respiratory rate Oxygen saturation Oxygen saturation in Arterial blood by Pulse oximetry Systolic blood pressure Diastolic blood pressure Provider Name and Address Organization Details Last Updated DateTime 1 172.72 cm 28.1 kg/m2 46005.5 9 g 97.8 [degF] 91 /min 18 /min 97 % 97 % 140 mm[Hg] 90 mm[Hg] [facility] 1 10:31:13 Date Recorded Body height Body mass index (BMI) Body weight Body temperature Heart rate Respiratory rate Oxygen saturation Oxygen saturation in Arterial blood by Pulse oximetry Systolic blood pressure Diastolic blood pressure Provider Name and Address Organization Details Last Updated DateTime 2 172.72 cm 29.5 kg/m2 40794.9 2 g 96.1 [degF] 82 /min 18 /min 99 % 99 % 145 mm[Hg] 100 mm[Hg] [facility] 2 16:04:00 Date Recorded Body height Body mass index (BMI) Body weight Body temperature Heart rate Respiratory rate Oxygen saturation Oxygen saturation in Arterial blood by Pulse oximetry Systolic blood pressure Diastolic blood pressure Provider Name and Address Organization Details Last Updated DateTime 172.72 cm 27.5 kg/m2 07617.2 2 g 97.4 [degF] 71 /min 18 /min 99 % 99 % 140 mm[Hg] 86 mm[Hg] [facility] Con[facility] 11:27:48 Social History Question Answer Notes LastModified by Organizat ion Details LastModified Time Tobacco Smoking Status Never Smoker John Saldaña MD [address], [place], [address], [facility] 11/10/2020 11:31:23 What Was The Date Of Your Most Recent Tobacco Screening? 11/10/2020 Information not available 11/10/2020 Sex: Unknown Functional Status None recorded. Mental Status None recorded. Family History Relationship Description Onset Age of this Age Resolved Age Notes LastModified by Organization Details LastModified Time Maternal Uncle Myocardial infarction [email or web address] Not available 09/29 10:54:07 Maternal Grandfather Cerebrovascu lar accident [email or web address] Not available 11/2020 10:54:12 Medical History No medical history recorded. Past Encounters Encounter ID Performer Location Encounter Start Date Encounter Closed Date Diagnosis/Indication Diagnosis SNOMED-CT Code Diagnosis ICD10 Code Diagnosis Note [id number] John Saldaña MD [facility] [address] [place] [address] 09/29/2020 10:29:49 09/29/2020 11:33:41 Body mass index 25-29 - overweight 609114284 Z68.28 Migraine 04215324 G43.90 9 Will need to follow up with neurology for management of his migraines. Hemochromatosis 69967642 6 E83.119 Has a h/o hemochroma tosis. Will be following up with hematology . Hypertensive disorder 38 387446 I10 Has been managed with verapamil, and propranolo l. Was started on these for migraine, and tremor. Hypogonadism 00527041 E2 9.1 Has been on testostero ne replacemen t. Will need to review records. With respect to hemochroma tosis, will need to follow hgb closely. Narcolepsy 69739168 G47. 419 Has been seen with a sleep study in the past, and has been negative. Has been rosa long. Will need to follow up with sleep medicine for ongoing discussion . Generalize d anxiety disorder 80310127 F41.1 Erectile dysfunction 860 517893 F52.21 Eruption 613657461 R21 [id number] John Saldaña MD [facility] [address] [facility] [address] [place] [address] 11/10/2020 11:24:26 11/16/2020 09:41:58 Active or passive immunization 695177283 Z23 Adult heal th examination 966449148 Z00.00 Patient is encouraged to participat e in a regular exercise regimen including weight training, and cardio of 30-60 minutes per day. Patient is encouraged to monitor their diet including avoiding high fat foods, and excess calories as well as encouraged to consume fruits and vegetables regularly. BP is acceptable . Due for CBC, CMP and Lipids. Screening for cardiovascular system disease 494953268 Z13.6 Hypertensive disorder 38 521854 I10 Has been managed with verapamil, and propranolo l. Was started on these for migraine, and tremor. Body mass index 25-29 - overweight 455650586 Z68.28 encourage patient to maintain active lifestyle, and exercise. Migraine 50295306 G43.90 9 Will need to follow up with neurology for management of his migraines. Hypogonadism 99907849 E2 9.1 Has been on testostero ne replacemen t. Will need to review records. With respect to hemochroma tosis, will need to follow hgb closely. E Force 11/10/20 Depression screening 171 937456 Z13.31 negative [id number] John Saldaña MD [facility] [address] [facility] [address] [place] [address] 10/08/2021 16:01:29 10/08/2021 16:16:25 Body mass index 25-29 - overweight 418889729 Z68.28 encourage patient to maintain active lifestyle, and exercise. Anxiety 80820535 F41.9 E Force 10/08/21 Patient will be treated with as needed alprazolam . Patient understand s that he cannot combine this medication with other sedatives, including diazepam. Patient counseled about the risks of harms associated with ongoing usage of controlled substances , including a risk of dependency . Patient understand s that they are not to operate heavy machinery or drive while under the use of sedating medication s. Patient is to keep us informed of any other controlled substances they may get from other providers, and the the combinatio n of some medication s, such as opiates and benzodiaze pines may lead to harm, and . The patient understand and agrees that routine urine drug screening will be performed, as well as regular prescripti on drug monitoring , and that aberration s, or unexpected results may result in terminatio n of prescribin g of any controlled substances . Health Concerns Section Related Observation LastModified by Organization Detai ls LastModified Time None Recorded Concern Status LastModified by Organization Details LastModified Time None Recorded Advance Directives Directive None Recorded Payers Encounter Date Sequence Insurance Name Policy Number Policy Wiggins Covered Member ID Wiggins Member ID Guarantor Name 09/29/2020 1 [place] [id number] Emory Aguilar [id number] Irvin Aguilar 11/10/2020 1 [place] [id number] Emory Aguilar [id number] Irvin Aguilar 10/08/2021 1 [place] [id number] Emory Aguilar [id number] Irvin Aguilar Notes Date Note Type Note Provider Name and Address Organization Details Recorded Time 09/29/2020 text/html [facility]. Moved here from [place]. Will need referrals to specialists or prescriptions condensed. Has a h/o migraines, hemochromatosis, hypogonadism, htn, migraines. He will get episodic phlebotomies. Will be seeing, Dr. Boothe. Further, has a h/o narcolepsy. Has been managed with xyrem. John Saldaña MD [address] [facility],[address], [place], [address], [facility] 10/09/2020 13:59:17 11/10/2020 text/html Here today for annual exam. Is trying to exercise. John Saldaña MD [address], [place], [address], [facility] 11/16/2020 09:41:13 10/08/2021 text/html Here today for concerns of anxiety. Has a phobia of flying. Will be flying for an intervieew John Saldaña MD [address], [place], [address], [facility] 10/09/2021 10:33:33
--- OUTSIDE RECORDS SUMMARY | 2024-12-31 17:11 | XMS_ITS | Clinical Summary ---
Author Organization [facility] Address [address] [place] [address] Phone Care Team Providers Care Heel Emery Buffer Name Role Phone Lu Diaz MD Primary Care Provider [phone] Davina Balderrama TRAIN CONTROL ELECTRONIC TECHNICIAN, STEM SETTER Unavailable [phone] Allergies No known active allergies Medications doxycycline hyclate (VIBRAMYCIN) 100 MG Capsule Take 100 mg by mouth daily. Active propranolol (INDERAL) 20 MG Tablet Take 20 mg by mouth 2 times daily. Active SUMAtriptan (IMITREX) 100 MG Tablet Take 100 mg by mouth daily as needed. Use as directed. May repeat dose in 2 hours if headache recurs. Active Tadalafil 5 MG Tablet Take 5 mg by mouth as needed. Active Testosterone Cypionate 200 MG/ML Solution by Injection route. Active verapamil (CALAN,ISOPTIN) 120 MG Tablet Take 120 mg by mouth in the morning and at bedtime. Active Vilazodone HCl 20 MG Tablet Take by mouth. Ac tive Sodium Oxybate (Xyrem) 500 MG/ML Solution Take 2.25 g by mouth nightly. Take at bedtime when in bed; may repeat 2.5-4 hours later. Active Emgality 120 MG/ML Solution Auto-injectorIn dications:Chron ic migraine with aura INJECT 240 MG BY SUBCUTANEOUS ROUTE ONCE FOR 1 DOSE. 1 mL 3 2 Active Active Problems No known active problems Family History Medical History Relation Name Comments Diabetes Father Heart Disease Father High Cholesterol Father Hypertension Father Kidney Disease Father Kidney Stones Father Heart Attack Maternal Grandmother Hypertension Maternal Grandmother Dementia Mother High Cholesterol Paternal Grandfather High Cholesterol Paternal Uncle Relation Name Status Comments Father Alive Maternal Grandmother Mother Alive Paternal Grandfather Paternal Uncle Social History Tobacco Use Types Packs/Day Years Used Date Smoking Tobacco: Never Smokeless Tobacco: Former Quit: 07/28/2007 Alcohol Use Standard Drinks/Week Comments Not Currently 0 (1 standard drink = 0.6 oz pur e alcohol) Sex and Gender Information Value Date Recorded Sex Assigned at Not on file Legal Sex Male 9:08 AM CDT Gender Identity Not on file Sexual Orientation Not on file Last Filed Vital Signs Vital Sign Reading Time Taken Comments Blood Pressure 130/78 05/28/2022 3:38 PM CDT Pulse 60 05/28/2022 3:38 PM CDT Temperature 36.7 C (98.1 F) 05/28/2022 3:38 PM CDT Respiratory Rate 18 05/28/2022 3:38 PM CDT Oxygen Saturation 97% 05/28/2022 3:38 PM CDT Inhaled Oxygen Concentration - - Weight 85.3 kg (188 lb) 05/28/2022 3:38 PM CDT Height 174.2 cm (5' 8.6) 05/28/2022 3:38 PM CDT Body Mass Index 28.09 05/28/2022 3:38 PM CDT Plan of Treatment Health Maintenance Due Date Last Done Comments Hepatitis C Virus (HCV) Screening 1972 TdaP Immunization 1972 Hepatitis B Immunization (1 of 3 - 19+ 3-dose series) 1991 Colonoscopy 2017 Colorectal Cancer Screening 2017 Cologuard 2022 Immunochemical Fecal Occult Blood 2022 Pneumococcal Immunization (5 0+ years) (1 of 1 - PCV) 2022 Zoster Immunization (1 of 2) 2022 SARS-COV-2 Immunization (1 - 2023-25 season) 2024 Influenza Immunization (Seas on Ended) 2025 03/25/2022, 04/15/2017, 05/13/2014 Respiratory Syncytial Virus (RSV) Immunization (Adult) (1 - 1-dose 75+ series) 2047 Human Papillomavirus (HPV) Immunization Aged Out No longer eligible b ased on patient's age to complete this topic Meningococcal Immunization (ACWY) Aged Out No longer eligible b ased on patient's age to complete this topic Rotavirus Immunization Aged Out No lo nger eligible based on patient's age to complete this topic Insurance [facility] Care Teams Heel Emery Buffer Relationship Specialty Start Date End Date Lu Diaz MD [address] [place] [address] [place] [address] PCP - General Supervisory Lifeguard 05/01/22 Davina Balderrama APRN, STEM SETTER [address] [place] [address] Nurse Practitioner Advanced Practice Nurse 05/28/22
--- OUTSIDE RECORDS SUMMARY | 2024-12-31 17:11 | XMS_ITS | Referral Summary ---
Author Organization [facility] Medical Office Building B Address [address] [place] [address] Care Team Providers Care Greaser Helper Name Role Phone Lu Diaz MD Primary Care Provider [phone] Encounters Date Type Department Care Team Description 11/11/2024 2:00 PM CDT Office Visit [facility] [address] [place] [address] [address] [place] [address] Rosalind Barton MD Narcolepsy without cataplexy(347.00) (Primary Dx); DAVID (obstructive sleep apnea) 10/04/2024 Telephone [facility] [address] [place] [address] [address] [address] Margo Frances MA from Last 3 Months Allergies No known active allergies Medications ALPRAZolam (XANAX) 1 mg tablet TK 1 T PO BID PRF ANXIETY 9 Active diazePAM (VALIUM) 5 mg tablet Take 1 tablet (5 mg total) by mouth 8 Active doxycycline (VIBRAMYCIN) 100 mg capsule doxycycline hyclate 100 mg capsule Active Emgality Pen 120 mg/mL pen injector INJECT 240 MG BY SUBCUTANEOUS ROUTE ONCE FOR 1 DOSE. 2 Active propranoloL (INDERAL) 20 mg tablet Take 1 tablet (20 mg total) by mouth 2 (two) times a day 2 Active SUMAtriptan (IMITREX) 100 mg tablet sumatriptan 100 mg tablet Take by oral route. 4 Active tadalafiL (CIALIS) 5 mg tablet daily Active testosterone cypionate (DEPO-TESTOTER ONE) 100 mg/mL injection Inject 1.5 mL (150 mg total) into the muscle as instructed once a week Active verapamiL (CALAN) 120 mg tablet Take 1 tablet (120 mg total) by mouth 2 (two) times a day 6 Active vilazodone (VIIBRYD) 20 mg tablet vilazodone 20 mg tablet Active sodium oxybate (Xyrem) 500 mg/mL solutionIndica tions:Narcolep sy Syndrome Take 4.5 g by mouth 2 (two) times a day 540 mL 5 4 Active sodium,calcium ,mag,pot oxybate (Xywav) 0.5 gram/mL solutionIndica tions:Cataplex y with associated Narcolepsy Take 4.5 g at bed time, then take 4.5 g 2.5-4 hours later. 540 mL 3 5 Active sodium,calcium ,mag,pot oxybate (Xywav) 0.5 gram/mL solutionIndica tions:Cataplex y with associated Narcolepsy Take 4.5 g at bed time, then take 4.5 g 2.5-4 hours later. 540 mL 3 4 025 Discontin ued(Reord er) Active Problems Problem Noted Date Diagnosed Date DAVID (obstructive sleep apnea) 09/16/2023 Social History Tobacco Use Types Packs/Day Years Used Date Smoking Tobacco: Never Smokeless Tobacco: Former Chew Tobacco Cessation:Counseling Given: Not Answered Sex and Gender Information Value Date Recorded Sex Assigned at Not on file Legal Sex Male 1:47 PM CDT Gender Identity Not on file Sexual Orientation Not on file Last Filed Vital Signs Vital Sign Reading Time Taken Comments Blood Pressure 144/81 11/11/2024 2:05 PM CDT Pulse 60 11/11/2024 2:05 PM CDT Temperature - - Respiratory Rate - - Oxygen Saturation 97% 11/11/2024 2:05 PM CDT Inhaled Oxygen Concentration - - Weight 89 kg (196 lb 3.2 oz) 11/11/2024 2:05 PM CDT Height 175.3 cm (5' 9.02) 11/11/2024 2:05 PM CD T Body Mass Index 28.96 11/11/2024 2:05 PM CDT Plan of Treatment Not on file Insurance [employer] [place] [employer] [place] Care Teams Greaser Helper Relationship Specialty Start Date End Date Lu Diaz MD [address] [place] [address] [place] [address] PCP - General Family Medicine 04/24/22
--- OUTSIDE RECORDS SUMMARY | 2024-12-31 17:11 | XMS_ITS | Data Portability ---
Author Organization [facility], Main Office Address [address] [place] [address] Care Team Providers Care Associate Professor Name Role Phone STEPHANIE CRUZ Primary Care Provider [phone] STEPHANIE CRUZ Referring Provider [phone] STEPHANIE CRUZ Primary Care Provider MICHAELA ALCAZAR Representative Assessment No assessment recorded. Plan of Treatment Reminders Order Date Submit Date Provider Last Modified By Organization Details Last Modified Time Details Appointments None record ed. Lab None record ed. Referral None record ed. Procedures None record ed. Surgeries None record ed. Imaging None record ed. Medication Orders None record ed. Patient TargetsNo targets recorded. Patient Instructions Encounter Date Encounter Id Patient Instructions Last Modified By Organization Details Last Modified Time 01/16/2021 [id number] high blood pressure: care instructions rebel Not available 01/16/2021 10:04:06 learning about high blood pressure rebel Not available 01/16/2021 10:04:06 Patient presents to the clinic to establish as a new patient for continued management of narcolepsy. He has been on Xyrem for last 7-8 years with a excellent clinical results. Patient describes a significant improvement in the quality of life since started on Xyrem. He has never had cataplexy and symptoms of daytime sleepiness are controlled on the current regimen. He barely falls asleep during the day or takes a nap. Will obtain records from his previous sleep doctor and the a take over management of Xyrem when needed. Patient denies any signs or symptoms of obstructive sleep apnea syndrome. Previously diagnosed with mild DAVID that resolved with weight loss. Will stay alert for recurrent symptoms of sleep apnea. I will not pursue any further testing until I go over his sleep studies and MSLT. Advised not to gain weight. Currently on a mild anxiolytics for anxiety and stress. Doing well without any symptoms of sleepiness as above. Associated hypertension is controlled on the current regimen. Medication list reviewed. Checked a medication for side effects and interactions. Continue with same regimen. I will see patient back in the office once I have received a previous sleep records to decide if he needs any further testing. Management of migraines as per Neurology. Thank you Dr. Pacheco for your kind referral. rebel Not available 01/16/2021 10:02:53 03/26/2021 [id number] high blood pressure: care instructions [email or web address] Not available 03/26/2021 16:03:25 learning about high blood pressure jfrayaman Not available 03/26/2021 16:03:25 Patient feels satisfied with current management for narcolepsy. He has been on Xyrem for last 7-8 years with a excellent clinical results. Patient is sleeping well and wakes up refreshed and energetic in the mornings. Patient describes a significant improvement in the quality of life since started on Xyrem. Denies a history of cataplexy and symptoms of daytime sleepiness are controlled on the current regimen. He barely falls asleep during the day or takes a nap. Reviewed the extensive records from a his previous sleep with . Baseline sleep study and MSLT from the years 2013 were reviewed. Patient denies any signs or symptoms of obstructive sleep apnea syndrome. Previously diagnosed with mild DAVID that resolved with weight loss. Will stay alert for recurrent symptoms of sleep apnea. He has continue to lose weight since the last visit. Overall lost the 42 lb since initial diagnosis with does say. Advised not to gain weight. Currently on mild anxiolytics for anxiety, OCD and stress. Doing well without any symptoms of sleepiness as above. Associated hypertension is controlled on the current regimen. Medication list reviewed. Checked a medication for side effects and interactions. Continue with same regimen. I will see patient back in the office once I have received a previous sleep records to decide if he needs any further testing. Management of migraines as per Neurology. Continue with same regimen. The a blood pressure is slightly elevated during today's visit. Advised to monitor his blood pressure. Consider switching Xyrem to Xywav in the future. [email or web address] Not available 03/26/2021 16:03:08 07/09/2021 [id number] high blood pressure: care instructions jfurman Not available 07/09/2021 16:34:37 learning about high blood pressure jfurman Not available 07/09/2021 16:34:37 Adequate use of Xyrem was discussed. Patient is familiar with the dosing of Xyrem for many years. He was prescribed Xyrem long before his stab list with me in the practice. Discussed the possibility of taking only 1 dose at night but patient stated he would do very poorly. Will continue with same regimen. Patient feels satisfied with current management for narcolepsy. He has been on Xyrem for last 7-8 years with excellent clinical results. Patient is sleeping well and wakes up refreshed and energetic in the mornings. Patient describes a significant improvement in the quality of life since started on Xyrem. Denies history of cataplexy. Also denies daytime sleepiness or nonrestorative sleep. Denies falling asleep during the day or taking naps. Previous history of mild sleep apnea resolved with weight loss. Patient denies any signs or symptoms of obstructive sleep apnea syndrome. Advised not to gain weight. History of anxiety, OCD and stress doing well at this time. Associated hypertension is controlled on the current regimen. Medication list reviewed. Checked medications for side effects and interactions. Continue with same regimen. Management of migraines as per Neurology. Continue with same regimen. We tried switching Xyrem to Xywav but were unable to do it because of insurance reasons. rebel Not available 07/09/2021 16:34:18 11/12/2021 [id number] high blood pressure: care instructions jfurman Not available 11/12/2021 16:50:14 learning about high blood pressure jfurman Not available 11/12/2021 16:50:14 Presents with th e elevated blood pressure being managed by primary care. Currently on a combination of beta-blockers and verapamil. Patient's insurance company declined the change of Xyrem to Xywav which has less the sodium content. Adequate use of Xyrem was discussed. Patient is familiar with the dosing of Xyrem for many years. He was prescribed Xyrem several years ago. Patient feels satisfied with current management for narcolepsy. He has been on Xyrem for last 8 years with excellent clinical results. Patient is sleeping well and wakes up refreshed and energetic in the mornings. Sometimes he has difficulty falling sleep but has not been a major issue. Patient describes a significant improvement in the quality of life since started on Xyrem. Denies history of cataplexy. Also denies daytime sleepiness or nonrestorative sleep. Denies falling asleep during the day or taking naps. Previous history of mild sleep apnea resolved with weight loss. Patient denies any signs or symptoms of obstructive sleep apnea syndrome. Advised not to gain weight. History of anxiety, OCD and stress doing well at this time. Medication list reviewed. Checked medications for side effects and interactions. Continue with same regimen. Management of migraines as per Neurology. Discussed the achieving optimal control of hypertension. Also discussed losing weight and exercising on a regular basis. We tried switching Xyrem to Xywav but were unable to do it because of insurance reasons. [email or web address] Not available 11/12/2021 16:50:01 Reason for Referral None Reported. Results Created Date Observation Date Name Description Value Unit Range Abnormal Flag Note LastModifiedBy Organization Detail LastModifiedTime 05/11/20 21 09/02/2013 multi ple sleep laten cy No observ ation record ed. BARCODE Not Available 2020 12:24:22 05/11/20 21 09/01/2013 sleep study , basel ine diagn ostic polys omnog jorge luis* No observ ation record ed. BARCODE Not Available 2020 12:24:22 Result Notes None recorded. Problems Name Problem SNOMED Code Status Onset Date Resolution Date Notes Provider Name and Address Organization Details Recorded Time Narcoleps y 23049124 Completed 202003/26/2021 Radha Saavedra CMA null, [facility] 1 15:18:13 Narcoleps y without cataplexy 488630939011 04 Active 2020 Radha Saavedra CMA null, [facility] 15:17:42 Migraine 45800155 Active 2020 Radha Saavedra CMA null, [facility] 1 15:17:48 Anxiety 40374301 Active 2020 Radha Saavedra CMA null, [facility] 15:17:55 Essential hypertens ion 78536145 Active 2020 JANNA Francisco PA - [facility] [place] [facility] [place] 1 12:43:02 Problem Notes None recorded. Medical Equipment None Reported. Allergies No known drug allergies Medications Name Sig Start Date Stop Date Status Note LastModified by Organization Details LastModified Time Prescriptio n - Prior Authorizati on Request active Not Available Not Available N ot Available doxycycline hyclate 100 mg capsule TAKE 1 CAPSULE BY MOUTH EVERY DAY active Not Available Not Available No t Available alprazolam 1 mg tablet TAKE ONE TABLET BY MOUTH TWICE A DAY NEEDED FOR ANXIETY active Not Available Not Available No t Available bisoprolol 10 mg-hydrochl orothiazide 6.25 mg tablet TAKE ONE TABLET BY MOUTH ONE TIME DAILY active Not Available Not Available No t Available sumatriptan 100 mg tablet PLEASE SEE ATTACHED FOR DETAILED DIRECTION S active Not Available Not Available No t Available minocycline 100 mg capsule TAKE ONE [...] No t Available alprazolam 0.5 mg tablet TAKE 1 TABLET TWICE A DAY BY ORAL ROUTE NEEDED. active Not Available Not Available No t Available clindamycin 1 % topical gel APPLY TO THE AFFECTED AREA(S) TOPICALLY TWICE DAILY active Not Available Not Available No t Available losartan 25 mg tablet TAKE 1 TABLET BY MOUTH [...] a dose pack TAKE DIRECTED ON PACKAGE active Not Available Not Available No t [...] Not Available No t Available amoxicillin 875 mg-potceleiu m clavulanate 125 mg tablet TAKE ONE TABLET BY MOUTH TWICE A DAY FOR 7 DAYS active Not Available Not Available No t Available erythromyci n-benzoyl peroxide 3 %-5 % topical gel APPLY TO THE AFFECTED AREA(S) TOPICALLY TWICE DAILY active Not Available Not Available No t Available clindamycin phosphate 1 % topical solution APPLY TO AFFECTED AREA TWICE A DAY active Not Available Not Available No t Available hydroxyzine pamoate 25 mg capsule TAKE 1 TO 2 TABS BY MOUTH AT ONSET OF HEADACHE, MAY REPEAT IN 4 HRS, MAX 2 DOSES/DAY , 2 DAYS/WEEK active Not Available Not Available No t [...] Available Fetzima 40 mg capsule,ext ended release TAKE [...] Not Available Not Available No t Available Ubrelvy 50 mg tablet TAKE 1 [...] t Available Xywav 0.5 gram/mL oral solution 03/26 completed Not Available Not Available Not Available Qulipta 30 mg tablet TAKE 1 TABLET BY MOUTH EVERYDAY AT BEDTIME active Not Available Not Available No t Available Vitals Date Recorded Body height Body mass index (BMI) Body weight Heart rate Oxygen saturation Oxygen saturation in Arterial blood by Pulse oximetry Systolic blood pressure Diastolic blood pressure Systolic blood pressure Diastolic blood pressure Provider Name and Address Organization Details Last Updated DateTime 2 173.99 cm 28.6 kg/m2 56083.1 4 g 64 /min 98 % 98 % 160 mm[Hg] 80 mm[Hg] 152 mm[Hg] 80 mm[Hg] Radha Saavedra [facility] 2 15:48:12 Date Recorded Body weight Heart rate Oxygen saturation Oxygen saturation in Arterial blood by Pulse oximetry Body mass index (BMI) Body height Systolic blood pressure Diastolic blood pressure Provider Name and Address Organization Details Last Updated DateTime 1 25773.0 7 g 48 /min 98 % 98 % 26.1 kg/m2 173.99 cm 128 mm[Hg] 64 mm[Hg] Radha Saavedra [facility] 1 09:21:27 Date Recorded Body height Body mass index (BMI) Body weight Heart rate Oxygen saturation Oxygen saturation in Arterial blood by Pulse oximetry Systolic blood pressure Diastolic blood pressure Provider Name and Address Organization Details Last Updated DateTime 1 173.99 cm 26.7 kg/m2 35155.4 4 g 64 /min 98 % 98 % 140 mm[Hg] 80 mm[Hg] Radha Saavedra [facility] 1 15:34:42 Date Recorded Body height Body mass index (BMI) Body weight Heart rate Oxygen saturation Oxygen saturation in Arterial blood by Pulse oximetry Systolic blood pressure Diastolic blood pressure Provider Name and Address Organization Details Last Updated DateTime 1 173.99 cm 27.7 kg/m2 88528.5 9 g 60 /min 98 % 98 % 132 mm[Hg] 80 mm[Hg] Radha Saavedra [facility] 1 15:55:16 Social History None recorded. Functional Status None recorded. Mental Status None recorded. Family History Nothing Reported. Medical History No medical history recorded. Past Encounters Encounter ID Performer Location Encounter Start Date Encounter Closed Date Diagnosis/Indication Diagnosis SNOMED-CT Code Diagnosis ICD10 Code Diagnosis Note [id number] Michaela Alcazar MD [address] [facility] [id number] [facility], [address] [place] [phone] 01/16/2021 08:52:56 01/16/2021 13:39:41 Narcolepsy without cataplexy 3439034096 9104 G47.419 Migraine 55056604 G43.90 9 Essential hypertension 77626793 I10 Anxiety 27401303 F41.9 [id number] MD HUSAM Are[address] [facility] [address] [facility], [address] [place] [address] 03/26/2021 15:12:24 03/26/2021 16:20:42 Narcolepsy without cataplexy 3621100994 9104 G47.419 Anxiety 63323386 F41.9 Migraine 13963238 G43.90 9 Essential hypertension 67117611 I10 [id number] MD HUSAM [address]val[address] [facility] [id number] [facility], [address] [place] [id number] 07/09/2021 15:19:29 07/11/2021 08:59:14 Narcolepsy without cataplexy 9944156008 9104 G47.419 Anxiety 65475044 F41.9 Essential hypertension 38334669 I10 Migraine 98864757 G43.90 9 [id number] MD HUSAM Arevalo_[address] [facility] [address] [facility], [address] [place] [phone] 11/12/2021 15:31:07 11/12/2021 16:22:16 Essential hypertension 70422156 I10 Narcolepsy without cataplexy 1718603049 9104 G47.419 Migraine 00326994 G43.90 9 Health Concerns Section Related Observation LastModified by Organization Detai ls LastModified Time None Recorded Concern Status LastModified by Organization Details LastModified Time None Recorded Advance Directives Directive None Recorded Payers Encounter Date Sequence Insurance Name Policy Number Policy Wiggins Covered Member ID Wiggins Member ID Guarantor Name 01/16/2021 1 [place] [id number] Emory Aguilar [id number] Irvin Aguilar 03/26/2021 1 [place] [id number] Irvin Aguilar [id number] Irvin Aguilar 07/09/2021 1 [place] [id number] Emory Aguilar [id number] Irvin Aguilar 11/12/2021 1 [place] [id number] Emory Aguilar [id number] Irvin Aguilar Notes Date Note Type Note Provider Name and Address Organization Details Recorded Time 01/16/2021 text/html Patient is a cesar y pleasant 42 years old male with history of narcolepsy diagnosed by MSLT the year 2012. Complains of chronic migraines since early age much better controlled since he went on Xyrem for narcolepsy. He follows with the Neurology on regular basis Patient was initially diagnosed with a mild the obstructive sleep apnea syndrome in association with a narcolepsy. The sleep apnea resolved with 25 lb weight loss. He was placed on Xyrem with a significant improvement of his quality of life. He no longer falls asleep during daytime. He is compliant with taking 2 doses of Xyrem every night. Other medical issues include history of hypertension, hyperlipidemia and hemochromatosis. He moved to [place] in June 2020. Since he moved to [place] has been under lot of stress with a new job. Michaela Alcazar MD [address] [place] [address], [phone], [facility] 01/16/2021 10:04:11 03/26/2021 text/html Mr. Aguilar is a 50 years old male who presents for follow-up of narcolepsy diagnosed by MSLT the year 2012. Complains of chronic migraines since early age much better controlled since he went on Xyrem for narcolepsy as well as beta-blockers. He continues to follow with Neurology on regular basis Patient was initially diagnosed with mild obstructive sleep apnea syndrome in association with narcolepsy. DAVID resolved with 40 lb weight loss. He was placed on Xyrem with significant improvement of his quality of life. He no longer falls asleep during daytime. He is compliant with taking 2 doses of Xyrem every night. Other medical issues include history of hypertension, hyperlipidemia and hemochromatosis. He moved to [place] in June 2020. Blood pressure was noted to be slightly elevated during today's visit Michaela Alcazar MD [address] [place] [address], [phone], [facility] 03/26/2021 16:03:31 07/09/2021 text/html Mr. Jeff bender cornel for follow-up of narcolepsy diagnosed by MSLT the year 2012. Patient recalls having symptoms of narcolepsy going to 10 years prior to diagnosis. Complains of chronic migraines since early age better controlled since he went on Xyrem for narcolepsy as well as beta-blockers. He continues to follow with Neurology on regular basis Patient was initially diagnosed with mild obstructive sleep apnea syndrome in association with narcolepsy. Component of sleep apnea resolved with 40 lb weight loss. He was placed on Xyrem with significant improvement of his quality of life. He no longer falls asleep during daytime. He is compliant with taking 2 doses of Xyrem every night. Patient takes his 1st dose of Xyrem 4 hours after his last meal. Patient cannot skip his 2nd dose of Xyrem because of severe symptoms of daytime sleepiness next day. The patient set his alarm at the 3-1/2 hours after his 1st dose of start him. He always wakes up before the alarm. Other medical issues include hypertension, hyperlipidemia and hemochromatosis. He moved to [place] in June 2020. Blood pressure is controlled with verapamil. Michaela Alcazar MD [address] [place], [phone], [facility] 07/09/2021 16:34:52 11/12/2021 text/html Mr. Jeff bender cornel for follow-up of narcolepsy. Patient was initially diagnosed with narcolepsy by MSLT the year 2012. Patient's symptoms of narcolepsy go back to 10 years prior to initial diagnosis. He also follows with Neurology for chronic migraines since early age. Migraines appear to be better controlled since he started on Xyrem for narcolepsy. Patient also remains on beta-blockers. History of hypertension on several antihypertensives presents with a systolic blood pressure of up to 160. Patient was initially diagnosed with mild obstructive sleep apnea syndrome in association with narcolepsy. Component of sleep apnea resolved with 40 lb weight loss. He was placed on Xyrem with significant improvement of his quality of life. He no longer falls asleep during daytime. He is compliant with taking 2 doses of Xyrem every night. Patient takes his 1st dose of Xyrem 4 hours after his last meal. Patient cannot skip his 2nd dose of Xyrem because of previous severe daytime sleepiness next day. Other medical issues include hypertension, hyperlipidemia and hemochromatosis. Michaela Alcazar MD [address] [place] [address], [place], [phone], [facility] 11/12/2021 16:50:19
--- OUTSIDE RECORDS SUMMARY | 2024-12-31 17:11 | XMS_ITS | Clinical Summary ---
Author Organization [facility] Building B Address [address] [place] [address] Care Team Providers Care Stripe Marker Name Role Phone Lu Diaz MD Primary Care Provider [phone] Allergies No known active allergies Medications ALPRAZolam [...] Diagnosed Date DAVID (obstructive sleep apnea) 09/16/2023 Encounters Date Type Department Care Team Description 11/11/2024 2:00 PM CDT Office Visit [facility] [address] [place] [address] [address] [place] [address] Rosalind Barton MD Narcolepsy without cataplexy(347.00) (Primary Dx); DAVID (obstructive sleep apnea) 10/04/2024 Telephone [facility] [address] [place] [address] [address] [place] [address] Margo Frances MA from Last 3 Months Surgical History Surgery Date Site/Laterality Comments ULNAR NERVE REPAIR Bilateral CARPAL TUNNEL RELEASE Right TRIGGER FINGER RELEASE Right Medical History Medical History Date Comments Hemochromatosis Family History Medical History Relation Name Comments Diabetes Father Dev Regression Maternal Grandmother Relation Name Status Comments Father Maternal Grandmother Social History Tobacco Use Types Packs/Day Years Used Date Smoking Tobacco: Never Smokeless Tobacco: Former Chew Tobacco Cessation:Counseling Given: Not Answered Sex and Gender Information Value Date Recorded Sex Assigned at Not on file Legal Sex Male 1:47 PM CDT Gender Identity Not on file Sexual Orientation Not on file Obstetrics History Last Filed Vital Signs Vital Sign Reading [...] 11/11/2024 2:05 PM CDT Plan of Treatment Health Maintenance Due Date Last Done Comments Colon Cancer Screening-Colonoscopy 1972 Depression Screening 1972 Hepatitis C Screening 1972 Prostate Cancer Screening-PSA 1972 DTaP/Tdap/Td Vaccine (1 - Tdap) 1983 Hepatitis B Screening 1990 Regular Well Visit/Exam 18-64 1990 Zoster Vaccine (1 of 2) 2022 Influenza Vaccine (Season Ended) 2025 08/13/2023, 03/25/2022, 04/15/2017 Pneumococcal vaccine <65 Aged Out No longer eligible based on patient's age to complete this topic Insurance [employer] [place] [employer] [place] Care Teams Stripe Marker Relationship Specialty Start Date End Date Lu Diaz MD [facility] [place] [address] PCP - General Family Medicine 04/24/22
[2024-12-31 17:52] LABS: Hematocrit 53.1 % (42.0-52.0); Hemoglobin 17.8 g/dL (14.0-18.0); Mean Corpuscular HGB Conc 33.5 g/dl (32-36); Mean Corpuscular Hemoglobin 32.7 pg (26-34); Mean Corpuscular Volume 97.4 fl (80-100); Mean Platelet Volume 9.3 fl (7.4-10.4); Platelet Count Result 169 k/mm3 (150-375); Red Blood Count 5.45 M/mm3 (4.6-6.20); Red Cell Distribution Width 13.3 % (11.5-14.5); White Blood Count 21.1 K/mm3 (4.5-10.0)
[2024-12-31 18:05] LABS: Iron 243 ug/dL (49-181)
[2024-12-31 18:14] LABS: Percent Iron Saturation 100 % (20-50)
[2024-12-31 18:20] LABS: Band Neutrophils Percent 2 % (0-6); Basophils Percent Manual 0 % (0-1); Eosinophils Percent Manual 0 % (0-4); Lymphocytes Absolute Manual 2.95 K/mm3 (1.1-4.5); Lymphocytes Percent Manual 14 % (18-44); Monocytes Absolute Manual 1.26 K/mm3 (0.1-0.90); Monocytes Percent Manual 6 % (3-9); Neutrophils Absolute Manual 16.88 K/mm3 (1.3-6.7); Neutrophils Percent Manual 78 % (46-73); Total Cells Counted 100
[2024-12-31 18:21] LABS: Atypical Lymphocytes Present; Platelet Estimate Slightly Decreased (Adequate); Schistocytes None Seen
== END 2024-12-31 17:05 | disposition home or self-care (01) ==
LOC: ANHLAB 17:09
PROVIDERS: Visit Provider Internal Medicine Hematology & Oncology
DX: E83.110 Hereditary hemochromatosis (principal); I10 Essential (primary) hypertension
CPT/HCPCS: 36415; 82728; 83540; 83550; 85025

== ENCOUNTER 2025-01-18 07:20 | Outpatient (CLI) | payer BC, SELFPAY ==
[2025-01-18 08:44] LABS: Hematocrit 48.4 % (42.0-52.0); Hemoglobin 16.2 g/dL (14.0-18.0); Mean Corpuscular HGB Conc 33.5 g/dl (32-36); Mean Corpuscular Hemoglobin 32.5 pg (26-34); Mean Corpuscular Volume 97.2 fl (80-100); Mean Platelet Volume 9.1 fl (7.4-10.4); Platelet Count Result 145 k/mm3 (150-375); Red Blood Count 4.98 M/mm3 (4.6-6.20); Red Cell Distribution Width 13.8 % (11.5-14.5); White Blood Count 19.5 K/mm3 (4.5-10.0)
[2025-01-18 08:51] LABS: Add Urine Microscopic? YES; Appearance Urine Clear (Clear); Bacteria Urine None Seen /hpf; Bilirubin Urine Negative (Negative); Blood Urine Negative (Negative); Color Urine Yellow (Yellow); Glucose Urine UA Negative (Negative); Ketones Urine Trace mg/dL (Negative); Leukocyte Esterase Ur Negative LEU/UL (Negative); Nitrate Urine Negative (Negative); Non Pathogenic Casts 0-2; Protein Urine Trace mg/dL (Negative); RBC Urine 0-2 /hpf (0-2); Specific Grav Ur 1.024 (1.001-1.035); Squamous Epithelial Cell Urine None Seen /hpf (Few); WBC Urine 0-5 /hpf (0-3)
[2025-01-18 08:55] LABS: Alanine Aminotransferase 23 U/L (6-50); Albumin Level 4.2 g/dL (3.5-5.1); Alkaline Phosphatase 41 U/L (38-126); Anion Gap 8 mmol/L (4-12); Aspartate Amino Transferase 35 U/L (17-59); Bilirubin,Total 0.8 mg/dL (0.2-1.3); Blood Urea Nitrogen 19 mg/dL (9-20); Calcium 9.2 mg/dL (8.4-10.2); Carbon Dioxide 28 mmol/L (22-30); Chloride 103 mmol/L (98-107); Cholesterol 164 mg/dL (0-200); Estimated Glomerular Filt Rate 60; Glucose 107 mg/dL (65-110); HDL Direct 32 mg/dL; Sodium 139 mmol/L (137-145); Total Protein 7.1 g/dL (6.3-8.2); Triglycerides 208 mg/dL (<150)
[2025-01-18 09:07] LABS: LDL Cholesterol Direct 87 mg/dL
[2025-01-18 09:11] LABS: Atypical Lymphocytes Present; Band Neutrophils Percent 4 % (0-6); Basophils Absolute Manual 0.19 K/mm3 (0.0-0.1); Basophils Percent Manual 1 % (0-1); Eosinophils Absolute Manual 0.39 K/mm3 (0.02-0.50); Eosinophils Percent Manual 2 % (0-4); Lymphocytes Percent Manual 19 % (18-44); Monocytes Absolute Manual 0.78 K/mm3 (0.1-0.90); Monocytes Percent Manual 4 % (3-9); Neutrophils Absolute Manual 14.43 K/mm3 (1.3-6.7); Neutrophils Percent Manual 70 % (46-73); Nucleated Red Blood Cells 1 %; Schistocytes None Seen; Total Cells Counted 100
[2025-01-18 09:17] LABS: Platelet Estimate Adequate (Adequate)
[2025-01-18 09:25] LABS: Prostate Specific Antigen 2.1 ng/mL (< OR = 4.0)
[2025-01-18 09:55] LABS: Hemoglobin A1C 5.1 % (<5.7)
[2025-01-18 10:01] LABS: Folic Acid 4.8 ng/mL (2.76->20)
[2025-01-18 10:24] LABS: Vitamin B12 > 1000.0 pg/mL (239-931)
[2025-01-18 10:40] LABS: Vitamin D 25 Hydroxy 21.8 ng/mL
[2025-01-22 15:23] LABS: Testosterone Free 43.8 pg/mL (35.0-155.0); Testosterone Total 273 ng/dL (250-1100)
== END 2025-01-18 07:21 | disposition home or self-care (01) ==
PROVIDERS: Visit Provider Family Medicine
DX: Z00.00 Encounter for general adult medical examination without abnormal findings (principal); E66.3 Overweight; G43.909 Migraine, unspecified, not intractable, without status migrainosus; E29.1 Testicular hypofunction
CPT/HCPCS: 36415; 80053; 80061; 81001; 82306; 82607; 82746; 83036; 83735; 84153; 84402; 84403; 84443; 85025

== ENCOUNTER 2025-02-07 08:41 | Outpatient (CLI) | payer BC, SELFPAY ==
--- NOTE | ~2025-02-07 | CT_ITS ---
Clinical Indication: CML CT Scan of the Chest, Abdomen, and Pelvis with Contrast: Technique: Contiguous sections were acquired throughout the chest, abdomen, and pelvis after intraven ous administration of 100 cc of Omnipaque 350. Dose reduction technique was used on this scan by mariposa garcia automated exposure control and iterative reconstruction technique. The dose-length product (DL P) was 902.37 mGy-cm. Findings: There is no evidence of any significant mediastinal, hilar or axillary lymphadenopathy. The mediastin al soft tissues and vascular structures appear normal. There is no evidence of pleural or pericardial effusion. The lungs are clear. No pulmonary nodules or infiltrates are noted. The liver, spleen, pancreas, gallbladder, adrenals and kidneys are within normal limits. No evidence of aortic aneurysm. No lymphadenopathy. No bowel obstruction or bowel wall thickening. There is no evidence to suggest acute appendicitis. Urinary bladder is unremarkable. No pelvic mass seen. No ascites. Impression: No significant abnormalities seen. Reviewed, dictated and finalized at [facility]. Impression: No significant abnormalities seen.
--- OUTSIDE RECORDS SUMMARY | 2025-02-07 08:48 | XMS_ITS | Data Portability ---
Author Organization [facility] Address [address] [place] [address] Assessment Encounter Date Assessment Date Assessment LastModified [...] the plan of care. 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 OT services will [...] Modified By Organization Details Last Modified Time 02/23/2020 [id number] STG- Pt will be able to use affected side to feed, groom, dress and bath self in 2-3 weeks. MET (01/26/2020) STG- Pain will be reduced significantly and be non-interfering in basic functional activities including ADLs in 3-5 weeks. PARTIALLY MET (02/23/2020) STG- Pt will be able to write, type, tie shoelaces with affected side in 3-4 weeks. MET (01/26/2020) LTG- Pt will be able to cut food, open jars, prepare simple meals with previous level of function in 6 weeks. PARTIALLY MET (difficulty opening jars)(02/23/2020 ) LTG- Pt will be independent with all home management tasks using affected side as required in 8 weeks. MET (02/23/2020) LTG- Pt will return to work with previous level of function, using ADs as need in 10 weeks. ONGOING (01/26/2020) LTG- Patient will be able to restore endurance in order to return to self care, work and IADLs in 10 weeks. MET (02/23/2020) STG- Pt. will report pain reduction after instruction with pain management techniques in 2 weeks. MET (01/26/2020) STG- Pain will be reduced by 2-3 levels on a 0-10 scale to improve function in 2 weeks. MET (01/26/2020) LTG- Pt. will be able to demonstrate increase commodity management specialist strength by 10-15 lbs and 3pt. pinch by 3-5 lbs to increase ADL independence in 6 weeks. PARTIALLY MET (02/23/2020) LTG- Increase commodity management specialist strength to 30# to increase functional use [...] Tarsal /Metat arsal Closed *; Not Available [facility] 9 07:04:27 Triggering of digit [id number] Active 2017 Not Available [facility] 9 01:49:04 Numbness of hand 985794720 Active 2019 Julia Morataya null, [facility] 0 14:04:29 Carpal tunnel syndrome of right wrist [id number] 08 Active 2019 Julia Morataya null, [facility] 0 14:04:37 Neck pain 47359177 Active 2019 Julia Morataya null, [facility] 0 14:05:22 Cubital tunnel syndrome Active 2019 Julia Morataya null, [facility] 0 14:06:01 Postoperat farrah visit 412938776 Active 2019 Oralia Mcqueen null, [facility] 0 12:56:26 Problem Notes None recorded. Procedures Surgical History Date Name Laterality Status Provider Name and Address Organization Details Recorded Time 0 77472: Ultrasound completed Xiomara Downs OT [address] [place], [address], [facility] 02/23/2020 17:09:37 0 64300: Ultrasound completed Xiomara Downs OT [address] [place], [address], [facility] 02/22/2020 10:26:38 0 69266: Therapeutic Exercise completed Xiomara Downs, OT [address] [place], [address], [facility] 02/22/2020 10:26:38 0 17971: Manual Therapy completed Xiomara Downs, OT [address] [place], [address], [facility] 02/22/2020 10:26:38 0 88959: Ultrasound completed Xioamra Downs OT [address] [place], [address], [facility] 02/16/2020 17:20:02 0 61714: Therapeutic Exercise completed Xiomara Downs OT [address] [place], [address], [facility] 02/16/2020 17:20:02 0 58950: Manual Therapy completed Xiomara Downs, OT [address] [place], [address], [facility] 02/16/2020 17:30:17 0 97477: Ultrasound completed Xiomara Downs, OT [address] [place], [address], [facility] 02/14/2020 17:35:53 0 98071: Therapeutic Exercise completed Xiomara Bushe, OT [address] [place], [address], [facility] 02/14/2020 17:34:24 0 64692: Manual Therapy completed Xiomara Bushe, OT [address] [place], [address], [facility] 02/14/2020 17:36:24 0 54608: Therapeutic Exercise completed Xiomara Bushe, OT [address] [place], [address], [facility] 02/10/2020 11:50:02 0 65008: Manual Therapy completed Xiomara Bushe, OT [address] [place], [address], [facility] 02/10/2020 11:49:35 0 15392: Ultrasound completed Xiomara Downs, OT [address] [place], [address], [facility] 02/08/2020 13:38:24 0 79642: Therapeutic Exercise completed Xiomara Downs, OT [address] [place], [address], [facility] 02/08/2020 13:38:24 0 57892: Manual Therapy completed Xiomara Downs, OT [address] [place], [address], [facility] 02/08/2020 13:38:24 0 43467: Ultrasound completed Xiomara Downs, OT [address] [place], [address], [facility] 01/31/2020 16:18:14 0 00518: Therapeutic Exercise completed Xiomararyan Downs, OT [address] [place], [address], [facility] 01/31/2020 16:20:03 0 47928: Manual Therapy completed Xiomara Downs, OT [address] [place], [address], [facility] 01/31/2020 16:17:55 0 02506: Ultrasound completed Xiomara Downs, OT [address] [place], [address], [facility] 01/31/2020 16:24:40 0 50857: Therapeutic Exercise completed Xiomara Downs, OT [address] [place], [address], [facility] 01/31/2020 16:22:33 0 76627: Manual Therapy completed Xiomara Downs, OT [address] [place], [address], [facility] 01/31/2020 16:22:24 0 16394: Therapeutic Exercise completed Xiomara Downs, OT [address] [place], [address], [facility] 01/25/2020 12:26:10 0 62416: Manual Therapy completed Xiomara Downs, OT [address] [place], [address], [facility] 01/25/2020 12:24:16 0 *34082: OT Evaluation: Low Complexity completed Xiomara Downs, OT [address] [place], [address], [facility] 12/20/2019 21:19:26 0 08624: Therapeutic Exercise completed Xiomara Downs, OT [address] [place], [address], [facility] 12/20/2019 21:19:31 9 RLP30 Right Middle Trigger completed Oralia Mcqueen [facility] 06/02/2019 16:59:42 9 RLP30 Trigger Digit Injection Right MULTIPLE completed Emy Santizo NP [address] [place], [address], [facility] 09/06/2018 21:40:18 Imaging Results None recorded. Procedure [...] Available N ot Available BD Regular Bevel [place] 18 gauge x 1 USE DIRECTED active [...] Not Available No t Available Flucelvax Quad 7941-2420 (PF) 60 mcg (15 mcg x 4)/0.5 mL IM syringe 11/28 completed Not Available Not Available Not Available Vitals None Recorded Social History Question Answer Notes LastModified by Organizat ion Details LastModified Time Tobacco Smoking Status Never Smoker Renita Olson [facility] 11/29/2019 15:41:00 What Was The Date Of Your Most Recent Tobacco Screening? 02/01/2020 [email or web address] Information not available 02/01/2020 How Much Tobacco Do You Smoke? No [email or web address] Information not available 05/31/2019 Sex: Unknown Functional Status Question Answer Note LastModified by Organizat ion Details LastModified Time Do you or have you ever used smokeless tobacco? Former smokeless tobacco user chewed tobacco for 15 years [email or web address] Information not available 05/31/2019 Mental Status None recorded. Family History Nothing Reported. Medical History Condition Response Allergic/Immunologic (ex: en vironmental allergies / food/insect bite reactions / adverse reactions to prescription drugs etc) N Other N Gout N Thyroid Disease N MRSA Y Genitourinary (ex: incontinence / pain w ith urination etc) N Gastrointestinal (ex: diarrh ea / constipation / abdominal pain / heart burn / difficulty swallowing etc) N Musculoskeletal (ex: painful /stiff joints / muscle weakness / difficulty walking/sitting etc) N Blood Clot N Eyes (ex: burning / redness / itching et c) N Acid Reflux (GERD) N Cancer N [...] SNOMED-CT Code Diagnosis ICD10 Code Diagnosis Note [id number] GABRIELA Tripathi [address] [place] [address],[address] [place] [address] 09/03/2018 15:48:16 09/03/2018 16:22:12 Trigger finger of right hand 1303201209 8273217 M65.321 M65.331 [id number] Narinder Schulte MD [facility] [address] [place] [address] 05/31/2019 15:47:42 06/04/2019 13:02:12 Triggering of digit 035699913 M65.331 [id number] MD DANETTE Dubois_Salena r [address] [place], [place] [address]it [address] [place] [address] 11/29/2019 15:16:54 11/29/2019 17:08:28 Numbness of hand 698627623 R20.0 Carpal yamini cade syndrome of right wrist 7217271921 57487 G56.01 G56.21 Neck pain 50285033 M54.2 Triggering of digit 2399 78941 M65.331 Cubital tu nnel syndrome 89610790 G56.23 [id number] CHELSEA Aragon_Poolsha r_OT [address] [place] [address] 12/15/2019 16:39:46 12/21/2019 10:22:41 Pain of right wrist 5196487304 97623 M25.531 [id number] MD DANETTE Dubois_Anatoliy en [facility] B [address] [place] [address] 12/22/2019 14:22:26 12/22/2019 14:51:18 Postoperative visit 018747059 Z09 Satisfacto ry visit [id number] CHELSEA Aragon r_OT [address] [place] [address] 01/24/2020 10:22:50 01/25/2020 12:33:07 Pain of right wrist 6678208315 25499 M25.531 [id number] CHELSEA Aragon r_OT [address] [place] [address] 01/26/2020 14:40:36 02/01/2020 10:40:32 Pain of right wrist 3938508832 88938 M25.531 [id number] CHELSEA Aragon r_OT [address] [place] [address] 01/31/2020 15:07:03 02/01/2020 10:41:24 Pain of right wrist 0562764318 25140 M25.531 [id number] MD Margie Dubois en [facility] B [address] [place] [address] 02/01/2020 11:16:30 02/01/2020 13:34:34 Postoperative visit 317460671 Z09 Satisfacto ry visit [id number] Xiomara Downs, OT [facility] [address] [place] [address] 02/07/2020 15:02:20 02/09/2020 13:54:04 Pain of right wrist 1499911827 85168 M25.531 [id number] Xiomara Downs OT [facility] [address] [place] [address] 02/09/2020 15:14:50 02/14/2020 07:49:35 Pain of right wrist 4561872264 96221 M25.531 [id number] Xiomara Downs OT [facility] [address] [place] [address] 02/14/2020 16:23:34 02/15/2020 15:00:54 Pain of right wrist 7322959412 33174 M25.531 [id number] Xiomara Downs OT [facility] [address] [place] [address] 02/16/2020 14:33:08 02/16/2020 16:51:13 Pain of right wrist 6082648483 96393 M25.531 [id number] Xiomara Downs OT [facility] [address] [place] [address] 02/21/2020 16:35:14 02/21/2020 19:21:57 Pain of right wrist 5581445984 80845 M25.531 [id number] Xiomara Downs OT [facility] [address] [place] [address] 02/23/2020 15:40:00 02/25/2020 09:46:23 Pain of right wrist 8386855486 45928 M25.531 [id number] Xiomara Downs, OT [facility] [address] [place] [address] 03/01/2020 16:42:48 03/02/2020 12:58:51 Pain of right wrist 6493197340 32941 M25.531 Health Concerns Section Related Observation LastModified by Organization Detai ls LastModified Time None Recorded Concern Status LastModified by Organization Details LastModified Time None Recorded Advance Directives Directive None Recorded Payers Insurance Date Sequence Insurance Name Policy Number Policy Wiggins Covered Member ID Wiggins Member ID Guarantor Name 01/02/2020 1 [facility] ([place] Irvin Aguilar [id number] Irvin Aguilar 03/18/2020 1 [facility] Irvin Aguilar [id number] Irvin Aguilar 11/22/2019 1 [facility] SIGNATURE ADMINISTRATORS (PPO) [id number] Irvin Aguilar [id number] Irvin Aguilar
--- OUTSIDE RECORDS SUMMARY | 2025-02-07 08:48 | XMS_ITS | Clinical Summary ---
Author Organization [facility] Ayad Morel Address [address] [place] [address] Care Team Providers Care Freight Handler Name Role Phone Lu Diaz MD Primary Care Provider [phone] Allergies No known active allergies Medications propranoloL [...] max dose 200mg in 24 hours Active imatinib (GLEEVEC) 400 mg tablet Take 1 Tablet (400 mg) by mouth daily with breakfast. 30 Tablet 4 01/18/20 25 Active diazePAM (VALIUM) 2 mg tabletIndications: Hereditary hemochromatosis Take 1 tablet by mouth 15-minutes before the phlebotomy 3 Tablet 01/19/20 25 Active ondansetron (ZOFRAN ODT) 4 mg Tablet, Rapid Dissolve Take 1 Tablet (4 mg) by mouth every 8 hours as needed for Nausea/Emesis. Dissolve tablet on top of tongue, then swallow with saliva. 15 Tablet 1 01/19/20 25 Active diazePAM (VALIUM) 2 mg tabletIndications: Hereditary hemochromatosis Take 1 tablet 15-minute before the phlebotomy 3 Tablet 12/04/19 25 2024 Disconti nued(Reo rder) imatinib (GLEEVEC) 400 mg tablet Take 1 Tablet (400 mg) by mouth daily with breakfast. 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 Migraine 08/28/2022 Encounters Date Type Department Care Team Description 02/03/2025 Telephone [facility] Oncology and Hematology - [place] [address] [place] [address] Bethel Goldberg MD Medication Question 01/18/2025 Specialty Pharmacy [facility] [address] [place] [phone] Audrey Zaldivar, PHARMACIST Specialty Pharmacy Refill Coordination 01/18/2025 Refill [facility] Oncology and Hematology [place] [address] [place] [address] Bethel Goldberg MD Hereditary hemochromatosis 01/17/2025 Refill [facility] Oncology and Hematology - [place] [address] [place] [address] Bethel Goldberg MD 01/14/2025 Specialty Pharmacy [facility] [address] [place] [phone] Audrey Zaldivar, PHARMACIST Specialty Pharmacy Prior Auth Coordination 01/13/2025 4:30 PM CDT Telephone Check Up [facility] Oncology and Hematology - [place] [address] [place] [address] Bethel Goldberg MD Chronic myeloid leukemia, BCR/ABL-positive, not having achieved remission (CMS/HCC) (Primary Dx); Hereditary hemochromatosis 01/03/2025 Orders Only [facility] Oncology and Hematology - [place] [address] [place] [address] Bethel Goldbreg MD 12/29/2024 Abstract [facility] Oncology and Hematology - [place] [address] [place] [address] Bethel Goldberg MD 12/28/2024 External Device Data STL ABSTRACTION Provider, Abstract 12/15/2024 External Device Data STL ABSTRACTION Provider, Abstract 12/14/2024 External Device Data STL ABSTRACTION Provider, Abstract 12/13/2024 Orders Only [facility] Oncology and Hematology - [place] [address] [place] [address] Bethel Goldberg MD Hereditary hemochromatosis (Primary Dx) 12/09/2024 4:30 PM CDT Telephone Check Up [facility] Oncology and Hematology - [place] [address] [place] [address] Bethel Goldberg MD Leukocytosis, unspecified type (Primary Dx) 12/06/2024 Orders Only [facility] Oncology and Hematology - [place] [address] [place] [address] Bethel Goldberg MD Hereditary hemochromatosis 12/03/2024 Refill [facility] Oncology and Hematology - [place] [address] [place] [address] Bethel Goldberg MD Hereditary hemochromatosis 11/30/2024 Orders Only [facility] Oncology and Hematology - [place] [address] [place] [address] Bethel Goldberg MD 11/30/2024 Abstract [facility] Oncology and Hematology - [place] [address] [place] [address] Bethel Goldberg MD 11/29/2024 3:45 PM CDT Office Visit [facility] Oncology and Hematology - [place] [address] [place] [address] Bethel Goldberg MD Hereditary hemochromatosis (Primary Dx); Leukocytosis, unspecified type 11/22/2024 Orders Only [facility] Oncology and Hematology [facility] [address] [place] [address] Bethel Goldberg MD Hereditary hemochromatosis 11/09/2024 External Device Data STL ABSTRACTION Provider, Abstract 11/08/2024 Orders Only [facility] Oncology and Hematology [facility] [address] [place] [address] Bethel Goldberg MD Hereditary hemochromatosis from Last 3 Months Family History Medical [...] on file Legal Sex Male 4:11 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 [address] [place] [address] 04/14/2025 3:45 PM CDT Office Visit [facility] Oncology [facility] [address] [place] [address] Bethel Goldberg MD [address] [facility] [place] [employer] [address] [place] [address] Health Maintenance Due Date Last Done Comments Pre-Diabetes and Diabetes Screening 1972 HEPATITIS B VACCINES (1 of 3 - 19+ 3-dose series) 1991 COLORECTAL SCREENING 2017 Colorectal Cancer Screening 2017 FIT-DNA Q 3 years 2017 FIT/FOBT Q 1 year 2017 Flex Sig/CT Colonography Q 5 years 2017 ZOSTER VACCINE (1 of 2) 2022 COVID-19 Vaccine (2 - 2023-2 5 season) 2024 09/13/2022 INFLUENZA VACCINE (#1) 2025 , 08/13/2023, 03/25/2022, Additional history exists DTAP/TDAP/TD VACCINES (2 - T d or Tdap) 01/10/2035 01/10/2025 Preventative Visit- Commercial Completed 01/10/2025 Procedures Procedure Name Priority Date/Time Associated Diagnosis Comments CBC WITH AUTODIFFERENTIAL Routine 2024 11:21 AM CDT FLOW CYTOMETRY REPORT Routine 12/03/2024 3:05 PM CDT IRON LEVEL Routine 11/26/2024 12:57 PM CDT from Last 3 Months Results * CBC WITH AUTODIFFERENTIAL (12/31/2024 11:21 AM CDT) Blood Bethel Goldberg MD HEMATOLOGY ORDERABLES Final Res ult * FLOW CYTOMETRY REPORT (12/03/2024 3:05 PM CDT) Bethel Goldberg MD PATHOLOGY/CYTOLOGY ORDERABLES F inal Result * IRON LEVEL (11/26/2024 12:57 PM CDT) Blood Bethel Goldberg MD CHEMISTRY ORDERABLES Final Resu lt from Last 3 Months Insurance [facility] BLUE ACCESS CHOICE RX GENERIC COMMERCIAL Commercial Care Teams Freight Handler Relationship Specialty Start Date End Date Lu Diaz MD PCP - General Family Practice 08/28/22
--- OUTSIDE RECORDS SUMMARY | 2025-02-07 08:48 | XMS_ITS | Data Portability ---
Author Organization [facility], L_[facility] [address] [place] [address] Care Team Providers Care Electrotyper Helper Name Role Phone STEPHANIE CRUZ Primary Care Provider [phone] Assessment Encounter Date Assessment Date Assessment LastModified [...] available 08/31/2021 12:38:13 12/07/2021 12/07/2021 Impression: Mr. Irivn Aguilar is a 51-year-old gentleman with hereditary [...] recorded. Lab CBC w/ diff 2021 022 [facility] ([facility]), [address] , [place], [address], 03:34:41 iron panel, serum or plasma 2021 [facility] ([facility]), [address] , [place], [address], 03:34:43 CMP, serum or plasma 2021 [facility] ([facility]), [address] , [place], [address], 03:34:44 afp (alpha-feto protein), serum 2021 [facility] ([facility]), [address] , [place], [address], 03:34:45 unlisted lab - ferritin 2021 [facility] ([facility]), [address], [place], [address], 03:34:57 CBC w/ diff 2021 [facility] ([facility]), [address], [place], [address], 15:10:05 unlisted lab - ferritin 2021 [facility] ([facility]), [address], [place], [address], 18:29:20 iron panel, serum or plasma 2021 [facility] ([facility]), [address], [place], [address], 18:29:23 CMP, serum or plasma 2021 [facility] ([facility]), [address] , [place], [address], 18:31:17 afp (alpha-feto protein), serum 2021 [facility] ([facility]), [address] , [place], [address], 21:40:22 testosteron e, total, serum 2020 [facility] ([facility]), [address] , [place], [address], 11:45:50 CBC 2020 [facility] ([facility]), [address] , [place], [address], 11:45:50 hepatic function panel, serum 2020 [facility] ([facility]), [address] , [place], [address], 11:45:50 Referral infusion referral treatment change - resume phlebotomy every 3 months, start in 1-2 weeks. 2021 [facility] In-Office Order, Internal Use Only DO Not Attach Compendium DO Not Attach Compendium, Do Not Delete/merge, [id number] 09:44:04 nephrologis t referral - .[facility] Provider Scheduling is sending a patient to your office. Please contact the patient to schedule. Thank you! 2020 [facility], [address], [place], [address], 15:47:22 Procedures None recorded. Surgeries None recorded. Imaging None recorded. Medication Orders Valium 5 mg tablet 2021 022 [id number], [address] [place], [address], 12:30:22 Patient TargetsNo targets recorded. Patient InstructionsNo instructions recorded. 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 ronic kidney disease .[facility] Provider Scheduling is sending a [...] Abnormal Flag Note LastModifiedBy Organization Detail LastModifiedTime 10/14/19 21 10/13/2020 CBC with diff WBC 8.28 thou/ cumm 3.90-1 1.20 Not Available [facility] [id number], [place], [address], 10/13/2020 17:11:53 10/14/19 21 10/13/2020 CBC with diff RBC 5.38 mill/ cumm 3.70-5 .70 Not Available [facility] [address], [place], [address], 10/13/2020 17:11:53 10/14/19 21 10/13/2020 CBC with diff hemoglobin 17.3 g/dL 11.7-1 7.3 Not Available [facility] [id number], [place], [address], 10/13/2020 17:11:53 10/14/19 21 10/13/2020 CBC with diff hematocrit 47.7 % 36.5-[address] [facility] [address], [place], [address], 10/13/2020 17:11:53 10/14/19 21 10/13/2020 CBC with diff MCV 88.7 fL 82.0-1 00.0 Not Available [facility] [address], [place], [address], 10/13/2020 17:11:53 10/14/19 21 10/13/2020 CBC with diff MCH 32.2 pg 26.0-3 4.0 Not Available [facility] [address], [place], [address], 10/13/2020 17:11:53 10/14/19 21 10/13/2020 CBC with diff MCHC 36.3 g/dL 32.0-3 6.0 high Not Available [facility] [address], [place], [address], 10/13/2020 17:11:53 10/14/19 21 10/13/2020 CBC with diff rdwsd 38.1 fL 35.1-4 6.8 Not Available [facility] [address], [place], [address], 10/13/2020 17:11:53 10/14/19 21 10/13/2020 CBC with diff MPV 9.6 fL 9.7-12 .8 low Not Available [facility] [address], [place], [address], 10/13/2020 17:11:53 10/14/19 21 10/13/2020 CBC with diff platelet count 220 thou/ cumm 140-44 0 Not Available [facility] [address], [place], [address], 10/13/2020 17:11:53 10/14/19 21 10/13/2020 CBC with diff neutrophils auto 67.6 % 40.0-7 7.0 Not Available [facility] [address], [place], [address], 10/13/2020 17:11:53 10/14/19 21 10/13/2020 CBC with diff immat granulocyte auto 0.2 % 0.0-0. 5 Not Available [facility] [address], [place], [address], 10/13/2020 17:11:53 10/14/19 21 10/13/2020 CBC with diff lymphocytes auto 17.9 % 14.0-4 7.0 Not Available [facility] [address] , [place], [address], 10/13/2020 17:11:53 10/14/19 21 10/13/2020 CBC with diff monocytes auto 11.5 % 0.0-13 .0 Not Available [facility] [address] , [place], [address], 10/13/2020 17:11:53 10/14/19 21 10/13/2020 CBC with diff eosinophils auto 2.3 % 0.0-7. 0 Not Available [facility] [address], [place], [address], 10/13/2020 17:11:53 10/14/19 21 10/13/2020 CBC with diff basophils auto 0.5 % 0.0-2. 0 Not Available [facility] [address] , [place], [address], 10/13/2020 17:11:53 10/14/19 21 10/13/2020 CBC with diff NRBC auto 0.0 /100_ WBC 0.0-0. 2 Not Available [facility] [address], [place], [address], 10/13/2020 17:11:53 10/14/19 21 10/13/2020 CBC with diff abs NRBC auto <0.01 thou/ cumm 0.00-0 .01 Not Available [facility] [address], [place], [address], 10/13/2020 17:11:53 03/19/20 21 10/13/2020 CBC with diff abs neutrophils auto 5.60 thou/ cumm 2.00-6 .80 Not Available [facility] [address], [place], [address], 10/13/2020 17:11:53 10/14/19 21 10/13/2020 CBC with diff abs immat gran auto 0.02 thou/ cumm 0.00-0 .04 Not Available [facility] [address], [place], [address], 10/13/2020 17:11:53 10/14/19 21 10/13/2020 CBC with diff abs lymphocytes auto 1.48 thou/ cumm 0.90-3 .00 Not Available [facility] [address], [place], [address], 10/13/2020 17:11:53 10/14/19 21 10/13/2020 CBC with diff abs monocytes auto 0.95 thou/ cumm 0.20-0 .80 high Not Available [facility] [address], [place], [address], 10/13/2020 17:11:53 10/14/19 21 10/13/2020 CBC with diff abs eosinophils auto 0.19 thou/ cumm 0.00-0 .40 Not Available [facility] [address], [place], [address], 10/13/2020 17:11:53 10/14/19 21 10/13/2020 CBC with diff abs basophils auto 0.04 thou/ cumm 0.00-0 .10 Not Available [facility] [address], [place], [address], 10/13/2020 17:11:53 10/14/19 21 10/13/2020 CMP, serum or plasm a glucose 126 mg/dL 74-100 high Not Available [place] [facility] [address], [place], [address], 10/13/2020 17:53:06 10/14/19 21 10/13/2020 CMP, serum or plasm a sodium 139 mmol/ L 136-14 5 Not Available [facility] [address], [place], [address], 10/13/2020 17:53:06 10/14/19 21 10/13/2020 CMP, serum or plasm a potassium 3.3 mmol/ L 3.5-5. 2 low Not Available [facility] [address], [place], [address], 10/13/2020 17:53:06 10/14/19 21 10/13/2020 CMP, serum or plasm a chloride 99 mmol/ L 98-107 Not Available [address] , [place], [address], 10/13/2020 17:53:06 10/14/19 21 10/13/2020 CMP, serum or plasm a CO2 28 mmol/ L 22-29 Not Available [facility] [address] , [place], [address], 10/13/2020 17:53:06 10/14/19 21 10/13/2020 CMP, serum or plasm a anion gap 12.0 7.0-17 .0 Not Available [facility] [address] , [place], [address], 10/13/2020 17:53:06 10/14/19 21 10/13/2020 CMP, serum or plasm a calcium 9.7 mg/dL 8.6-10 .5 Not Available [facility] [address], [place], [address], 10/13/2020 17:53:06 10/14/19 21 10/13/2020 CMP, serum or plasm a BUN 15 mg/dL 6-20 Not Available [facility] [address], [place], [address], 10/13/2020 17:53:06 10/14/19 21 10/13/2020 CMP, serum or plasm a creatinine 1.20 mg/dL 0.70-[address] [facility] [address], [place], [address], 10/13/2020 17:53:06 10/14/19 21 10/13/2020 CMP, serum or plasm a eGFR >60.[address] [facility] [address] [address] [facility], [place], [address], 10/13/2020 17:53:06 10/14/19 21 10/13/2020 CMP, serum or plasm a eGFR nonafrican citizen [place] >60.0 eGFR Refer ence Range >60 ml/mi [...] Quali ty Initi ative ) Not Available [facility] [address] [facility] [facility], [place], [address], 10/13/2020 17:53:06 10/14/19 21 10/13/2020 CMP, serum or plasm a BUN-creatini ne ratio 13 10-[address] [facility] [address] [facility], [place], [address], 10/13/2020 17:53:06 10/14/19 21 10/13/2020 CMP, serum or plasm a protein total 7.3 gm/dL 6.4-8. [address] [facility] [address] [facility], [place], [address], 10/13/2020 17:53:06 10/14/19 21 10/13/2020 CMP, serum or plasm a albumin 4.7 gm/dL 3.5-5. 2 Renal Patie nts 3.1-4 .6 gm/dL Not Available [facility] [address] , [place], [address], 10/13/2020 17:53:06 10/14/19 21 10/13/2020 CMP, serum or plasm a globulin 2.6 gm/dL 1.4-4. 7 Not Available [facility] [address] , [place], [address], 10/13/2020 17:53:06 10/14/19 21 10/13/2020 CMP, serum or plasm a albumin globulin ratio 1.8 1.2-3. 6 Not Available [facility] [address] , [place], [address], 10/13/2020 17:53:06 10/14/19 21 10/13/2020 CMP, serum or plasm a alkaline phosphatase 54 U/L 40-129 Not Available [facility] [address] , [place], [address], 10/13/2020 17:53:06 10/14/19 21 10/13/2020 CMP, serum or plasm a AST 15 U/L 0-40 Not Available [facility] [address] , [place], [address], 10/13/2020 17:53:06 10/14/19 21 10/13/2020 CMP, serum or plasm a ALT 13 U/L 0-41 Not Available [facility] [address] , [place], [address], 10/13/2020 17:53:06 10/14/19 21 10/13/2020 CMP, serum or plasm a bilirubin total 0.98 mg/dL 0.00-1 .20 Not Available [facility] [address] [facility] [place], [address], 10/13/2020 17:53:06 10/14/19 21 10/13/2020 iron profi le iron 186 ug/dL 59-158 high Not Available [facility] [address], [place], [address], 10/13/2020 22:06:40 10/14/19 21 10/13/2020 iron profi le iron binding capacity 257 ug/dL 250-45 0 Not Available [place] [address], [place], [address], 10/13/2020 22:06:40 10/14/19 21 10/13/2020 iron profi le UIBC 71 ug/dL 112-34 7 low Not Available [place] [address], [place], [address], 10/13/2020 22:06:40 10/14/19 21 10/13/2020 iron profi le percent saturation 72 % 20-50 high Iron Value s may be false ly eleva monet in serum sampl es from [facility] treat ed with antic oagul ants and iron- conta ining compo unds such as iron dextr an. Not Available [place] [address], [place], [address], 10/13/2020 22:06:40 10/14/19 21 10/13/2020 radha tin ferritin 175 NG/mL 30-400 Iron Defic ient <10 ng/ml Sampl es shoul d not be taken from [facility] recei ving thera py with high bioti n doses (i.e. >5 mg/da y) until at least 8 hours follo wing the last bioti n admin istra tion. For diagn ostic purpo ses, the resul ts shoul d alway s be asses sed in [facility]io n [facility], clini breann exami natio n and other findi ngs. Not Available [facility] [address], [place], [address], 10/13/2020 22:06:43 08/17/19 22 08/17/2021 CBC WITH DIFF WBC =10.08 thou/ cumm 3.90-1 1.20 Not Available [facility] ([facility]) [address] , [place], [address], 08/17/2021 15:18:58 08/17/19 22 08/17/2021 CBC WITH DIFF RBC =5.29 mill/ cumm 3.70-5 .70 Not Available [facility] ([facility]) [address] , [place], [address], 08/17/2021 15:18:58 08/17/19 22 08/17/2021 CBC WITH DIFF hemoglobin =16.8 g/dL 11.7-1 7.3 Not Available [facility] ([facility]) [address] , [place], [address], 08/17/2021 15:18:58 08/17/19 22 08/17/2021 CBC WITH DIFF hematocrit =48.3 % 36.5-5 0.0 Not Available [facility] ([facility]) [address], [place], [address], 08/17/2021 15:18:58 08/17/19 22 08/17/2021 CBC WITH DIFF MCV =91.3 fL 82.0-1 00.0 Not Available [facility] ([facility]) [address], [place], [address], 08/17/2021 15:18:58 08/17/19 22 08/17/2021 CBC WITH DIFF MCH =31.8 pg 26.0-3 4.0 Not Available [facility] ([facility]) [address], [place], [address], 08/17/2021 15:18:58 08/17/19 22 08/17/2021 CBC WITH DIFF MCHC =34.8 g/dL 32.0-3 6.0 Not Available [facility] ([facility]) [address], [place], [address], 08/17/2021 15:18:58 08/17/19 22 08/17/2021 CBC WITH DIFF rdwsd =40.2 fL 35.1-4 6.8 Not Available [facility] ([facility]) [address], [place], [address], 08/17/2021 15:18:58 08/17/19 22 08/17/2021 CBC WITH DIFF MPV =8.8 fL 9.7-12 .8 low Not Available [facility] ([facility]) [address] [place], [address], 08/17/2021 15:18:58 08/17/19 22 08/17/2021 CBC WITH DIFF platelet count =217 thou/ cumm 140-44 0 Not Available [facility] ([facility]) [address] [place], [address], 08/17/2021 15:18:58 08/17/19 22 08/17/2021 CBC WITH DIFF neutrophils auto =66.9 % 40.0-7 7.0 Not Available [facility] ([facility]) [address] [place], [address], 08/17/2021 15:18:58 08/17/19 22 08/17/2021 CBC WITH DIFF immat granulocyte auto =0.2 % 0.0-0. 5 Not Available [facility] ([facility]) [address] [place], [address], 08/17/2021 15:18:58 08/17/19 22 08/17/2021 CBC WITH DIFF lymphocytes auto =19.7 % 14.0-4 7.0 Not Available [facility] ([facility]) [address] [place], [address], 08/17/2021 15:18:58 08/17/19 22 08/17/2021 CBC WITH DIFF monocytes auto =10.8 % 0.0-13 .0 Not Available [facility] ([facility]) [address] , [place], [address], 08/17/2021 15:18:58 08/17/19 22 08/17/2021 CBC WITH DIFF eosinophils auto =1.7 % 0.0-7. 0 Not Available [facility] ([facility]) [address], [place], [address], 08/17/2021 15:18:58 08/17/19 22 08/17/2021 CBC WITH DIFF basophils auto =0.7 % 0.0-2. 0 Not Available [facility] ([facility]) [address], [place], [address], 08/17/2021 15:18:58 08/17/19 22 08/17/2021 CBC WITH DIFF NRBC auto =0.0 /100_ WBC 0.0-0. 2 Not Available [facility] ([facility]) [address], [place], [address], 08/17/2021 15:18:58 08/17/19 22 08/17/2021 CBC WITH DIFF abs NRBC auto <0.01 thou/ cumm 0.00-0 .01 Not Available [facility] ([facility]) [address], [place], [address], 08/17/2021 15:18:58 08/17/19 22 08/17/2021 CBC WITH DIFF abs neutrophils auto =6.74 thou/ cumm 2.00-6 .80 Not Available [facility] ([facility]) [address], [place], [address], 08/17/2021 15:18:58 08/17/19 22 08/17/2021 CBC WITH DIFF abs immat gran auto =0.02 thou/ cumm 0.00-0 .04 Not Available [facility] ([facility]) [address], [place], [address], 08/17/2021 15:18:58 08/17/19 22 08/17/2021 CBC WITH DIFF abs lymphocytes auto =1.99 thou/ cumm 0.90-3 .00 Not Available [facility] ([facility]) [address], [place], [address], 08/17/2021 15:18:58 08/17/19 22 08/17/2021 CBC WITH DIFF abs monocytes auto =1.09 thou/ cumm 0.20-0 .80 high Not Available [facility] ([facility]) [address], [place], [address], 08/17/2021 15:18:58 08/17/19 22 08/17/2021 CBC WITH DIFF abs eosinophils auto =0.17 thou/ cumm 0.00-0 .40 Not Available [facility] ([facility]) [address], [place], [address], 08/17/2021 15:18:58 08/17/19 22 08/17/2021 CBC WITH DIFF abs basophils auto =0.07 thou/ cumm 0.00-0 .10 Not Available [facility] ([facility]) [address] [place], [address], 08/17/2021 15:18:58 08/17/19 22 08/17/2021 COMPR EHENS SINAN METAB OLIC PANEL glucose =100 mg/dL 74-100 Not Available [facility] ([facility]) [address] [place], [address], 08/17/2021 18:10:06 08/17/19 22 08/17/2021 COMPR EHENS SINAN METAB OLIC PANEL sodium =141 mmol/ L 136-14 5 Not Available [facility] ([facility]) [address] , [place], [address], 08/17/2021 18:10:06 08/17/19 22 08/17/2021 COMPR EHENS SINAN METAB OLIC PANEL potassium =4.1 mmol/ L 3.5-5. 2 Not Available [facility] ([facility]) [address], [place], [address], 08/17/2021 18:10:06 08/17/19 22 08/17/2021 COMPR EHENS SINAN METAB OLIC PANEL chloride =100 mmol/ L 98-107 Not Available [facility] ([facility]) [address], [place], [address], 08/17/2021 18:10:06 08/17/19 22 08/17/2021 COMPR EHENS SINAN METAB OLIC PANEL CO2 =28 mmol/ L 22-29 Not Available [facility] ([facility]) [address], [place], [address], 08/17/2021 18:10:06 08/17/19 22 08/17/2021 COMPR EHENS SINAN METAB OLIC PANEL anion gap =13.0 7.0-17 .0 Not Available [facility] ([facility]) [address], [place], [address], 08/17/2021 18:10:06 08/17/19 22 08/17/2021 COMPR EHENS SINAN METAB OLIC PANEL calcium =9.4 mg/dL 8.6-10 .5 Not Available [facility] ([facility]) [address], [place], [address], 08/17/2021 18:10:06 08/17/19 22 08/17/2021 COMPR EHENS SINAN METAB OLIC PANEL BUN =20 mg/dL 6-20 Not Available [facility] ([facility]) [address] [place], [address], 08/17/2021 18:10:06 08/17/19 22 08/17/2021 COMPR EHENS SINAN METAB OLIC PANEL creatinine =1.36 mg/dL 0.70-1 .20 high Not Available [facility] ([facility]) [address] [place], [address], 08/17/2021 18:10:06 08/17/19 22 08/17/2021 COMPR EHENS SINAN METAB OLIC PANEL eGFR >60.0 Not Available [facility] ([facility]) [address] [place], [address], 08/17/2021 18:10:06 08/17/19 22 08/17/2021 COMPR EHENS [...] Quali ty Initi ative ) Not Available [facility] ([facility]) [address] [place], [address], 08/17/2021 18:10:06 08/17/19 22 08/17/2021 COMPR EHENS SINAN METAB OLIC PANEL BUN-creatini ne ratio =15 10-20 Not Available [facility] ([facility]) [address] [place], [address], 08/17/2021 18:10:06 08/17/19 22 08/17/2021 COMPR EHENS SINAN METAB OLIC PANEL protein total =6.9 gm/dL 6.4-8. 3 Not Available [facility] ([facility]) [address], [place], [address], 08/17/2021 18:10:06 08/17/19 22 08/17/2021 COMPR EHENS SINAN METAB OLIC PANEL albumin =4.0 gm/dL 3.5-5. 2 Renal Patie nts 3.1-4 .6 gm/dL Not Available [facility] ([facility]) [address], [place], [address], 08/17/2021 18:10:06 08/17/19 22 08/17/2021 COMPR EHENS SINAN METAB OLIC PANEL globulin =2.9 gm/dL 1.4-4. 7 Not Available [facility] ([facility]) [address], [place], [address], 08/17/2021 18:10:06 08/17/19 22 08/17/2021 COMPR EHENS SINAN METAB OLIC PANEL albumin/glob ulin ratio =1.4 1.2-3. 6 Not Available [facility] ([facility]) [address], [place], [address], 08/17/2021 18:10:06 08/17/19 22 08/17/2021 COMPR EHENS SINAN METAB OLIC PANEL alkaline phosphatase =58 U/L 40-129 Not Available [facility] ([facility]) [address] [place], [address], 08/17/2021 18:10:06 08/17/19 22 08/17/2021 COMPR EHENS SINAN METAB OLIC PANEL AST =18 U/L 0-40 Not Available [facility] ([facility]) [address] [place], [address], 08/17/2021 18:10:06 08/17/19 22 08/17/2021 COMPR EHENS SINAN METAB OLIC PANEL ALT =18 U/L 0-41 Not Available [facility] ([facility]) [address] [place], [address], 08/17/2021 18:10:06 08/17/19 22 08/17/2021 COMPR EHENS SINAN METAB OLIC PANEL bilirubin total =1.09 mg/dL 0.00-1 .20 Not Available [facility] ([facility]) [address] , [place], [address], 08/17/2021 18:10:06 08/17/19 22 08/17/2021 RADHA TIN [...] n and other findi ngs. Not Available [facility] ([facility]) [address] , [place], [address], 08/17/2021 18:22:28 08/17/19 22 08/17/2021 IRON PROFI LE iron =162 ug/dL 59-158 high Not Available [facility] ([facility]) [address] , [place], [address], 08/17/2021 18:22:29 08/17/19 22 08/17/2021 IRON PROFI LE iron binding capacity =251 ug/dL 250-45 0 Not Available [facility] ([facility]) [address] [place], [address], 08/17/2021 18:22:29 08/17/19 22 08/17/2021 IRON PROFI LE UIBC =89 ug/dL 112-34 7 low Not Available [facility] ([facility] [facility] [address] [place], [address], 08/17/2021 18:22:29 08/17/19 22 08/17/2021 IRON PROFI LE percent saturation =65 % 20-50 high Iron Value s may be false ly eleva monet in serum sampl es from patie nts treat ed with antic oagul ants and iron- conta ining compo unds such as iron dextr an. Not Available [facility] ([facility] [address] , [place], [address], 08/17/2021 18:22:29 12/08/19 22 12/07/2021 CBC WITH DIFF WBC =6.17 thou/ cumm 3.90-1 1.20 Not Available [facility] ([facility] [address], [place], [address], 12/07/2021 15:10:05 12/08/19 22 12/07/2021 CBC WITH DIFF RBC =5.45 mill/ cumm 3.70-5 .70 Not Available [facility] ([facility] [address], [place], [address], 12/07/2021 15:10:05 12/08/19 22 12/07/2021 CBC WITH DIFF hemoglobin =17.1 g/dL 11.7-1 7.3 Not Available [facility] ([facility]) [address] [place], [address], 12/07/2021 15:10:05 12/08/19 22 12/07/2021 CBC WITH DIFF hematocrit =49.0 % 36.5-5 0.0 Not Available [facility] ([facility]) [address] [place], [address], 12/07/2021 15:10:05 12/08/19 22 12/07/2021 CBC WITH DIFF MCV =89.9 fL 82.0-1 00.0 Not Available [facility] ([facility]) [address] [place], [address], 12/07/2021 15:10:05 12/08/19 22 12/07/2021 CBC WITH DIFF MCH =31.4 pg 26.0-3 4.0 Not Available [facility] ([facility] [address], [place], [address], 12/07/2021 15:10:05 12/08/19 22 12/07/2021 CBC WITH DIFF MCHC =34.9 g/dL 32.0-3 6.0 Not Available [facility] ([facility] [address], [place], [address], 12/07/2021 15:10:12/08/19 22 12/07/2021 CBC WITH DIFF rdwsd =38.9 fL 35.1-4 6.8 Not Available [facility] ([facility]) [address], [place], [address], 12/07/2021 15:10:05 12/08/19 22 12/07/2021 CBC WITH DIFF MPV =9.3 fL 9.7-12 .8 low Not Available [facility] ([facility] [address], [place], [address], 12/07/2021 15:10:05 12/08/19 22 12/07/2021 CBC WITH DIFF platelet count =211 thou/ cumm 140-44 0 Not Available [facility] ([facility] [address] [place], [address], 12/07/2021 15:10:05 12/08/19 22 12/07/2021 CBC WITH DIFF neutrophils auto =63.6 % 40.0-7 7.0 Not Available [facility] ([facility] [address] [place], [address], 12/07/2021 15:10:05 12/08/19 22 12/07/2021 CBC WITH DIFF immat granulocyte auto =0.3 % 0.0-0. 5 Not Available [facility] ([facility] [address] [place], [address], 12/07/2021 15:10:05 12/08/19 22 12/07/2021 CBC WITH DIFF lymphocytes auto =20.4 % 14.0-4 7.0 Not Available [facility] ([facility] [address], [place], [address], 12/07/2021 15:10:05 12/08/19 22 12/07/2021 CBC WITH DIFF monocytes auto =11.5 % 0.0-13 .0 Not Available [facility] ([facility] [address], [place], [address], 12/07/2021 15:10:05 12/08/19 22 12/07/2021 CBC WITH DIFF eosinophils auto =3.4 % 0.0-7. 0 Not Available [facility] ([facility] [address], [place], [address], 12/07/2021 15:10:05 12/08/19 22 12/07/2021 CBC WITH DIFF basophils auto =0.8 % 0.0-2. 0 Not Available [facility] ([facility] [address], [place], [address], 12/07/2021 15:10:05 12/08/19 22 12/07/2021 CBC WITH DIFF NRBC auto =0.0 /100_ WBC 0.0-0. 2 Not Available [facility] ([facility] [address], [place], [address], 12/07/2021 15:10:05 12/08/19 22 12/07/2021 CBC WITH DIFF abs NRBC auto <0.01 thou/ cumm 0.00-0 .01 Not Available [facility] ([facility] [address], [place], [address], 12/07/2021 15:10:05 12/08/19 22 12/07/2021 CBC WITH DIFF abs neutrophils auto =3.92 thou/ cumm 2.00-6 .80 Not Available [facility] ([facility] [address], [place], [address], 12/07/2021 15:10:05 12/08/19 22 12/07/2021 CBC WITH DIFF abs immat gran auto =0.02 thou/ cumm 0.00-0 .04 Not Available [facility] ([facility] [address], [place], [address], 12/07/2021 15:10:05 12/08/19 22 12/07/2021 CBC WITH DIFF abs lymphocytes auto =1.26 thou/ cumm 0.90-3 .00 Not Available [facility] ([facility] [address], [place], [address], 12/07/2021 15:10:05 12/08/19 22 12/07/2021 CBC WITH DIFF abs monocytes auto =0.71 thou/ cumm 0.20-0 .80 Not Available [facility] ([facility] [address], [place], [address], 12/07/2021 15:10:05 12/08/19 22 12/07/2021 CBC WITH DIFF abs eosinophils auto =0.21 thou/ cumm 0.00-0 .40 Not Available [facility] ([facility] [address], [place], [address], 12/07/2021 15:10:05 12/08/19 22 12/07/2021 CBC WITH DIFF abs basophils auto =0.05 thou/ cumm 0.00-0 .10 Not Available [facility] ([facility] [address], [place], [address], 12/07/2021 15:10:05 12/08/19 22 12/07/2021 RADHA TIN ferritin =309 NG/mL 30-400 Iron Defic ient <10 ng/ml Sampl es shoul d not be taken from [facility] nts recei ving thera py with high [...] n and other findi ngs. Not Available [facility] ([facility] [address] , [place], [address], 12/07/2021 18:29:20 12/08/19 22 12/07/2021 IRON PROFI LE iron =173 ug/dL 59-158 high Not Available [facility] ([facility] [address] , [place], [address], 12/07/2021 18:29:23 12/08/19 22 12/07/2021 IRON PROFI LE iron binding capacity =236 ug/dL 250-45 0 low Not Available [facility] ([facility]) [address] , [place], [address], 12/07/2021 18:29:23 12/08/19 22 12/07/2021 IRON PROFI LE UIBC =63 ug/dL 112-34 7 low Not Available [facility] ([facility] [address] , [place], [address], 12/07/2021 18:29:23 12/08/19 22 12/07/2021 IRON PROFI LE percent saturation =73 % 20-50 high Iron Value s may be false ly eleva monet in serum sampl es from [facility] treat ed with antic oagul ants and iron- conta ining compo unds such as iron dextr an. Not Available [facility] ([facility]) [address] , [place], [address], 12/07/2021 18:29:23 12/08/19 22 12/07/2021 COMPR EHENS SINAN METAB OLIC PANEL glucose =207 mg/dL 74-100 high Not Available [facility] ([facility] [address], [place], [address], 12/07/2021 18:31:16 12/08/19 22 12/07/2021 COMPR EHENS SINAN METAB OLIC PANEL sodium =139 mmol/ L 136-14 5 Not Available [facility] ([facility]) [address], [place], [address], 12/07/2021 18:31:16 12/08/19 22 12/07/2021 COMPR EHENS SINAN METAB OLIC PANEL potassium =4.1 mmol/ L 3.5-5. 2 Not Available [facility] ([facility]) [address], [place], [address], 12/07/2021 18:31:16 12/08/19 22 12/07/2021 COMPR EHENS SINAN METAB OLIC PANEL chloride =101 mmol/ L 98-107 Not Available [facility] ([facility] [address], [place], [address], 12/07/2021 18:31:16 12/08/19 22 12/07/2021 COMPR EHENS SINAN METAB OLIC PANEL CO2 =21 mmol/ L 22-29 low Not Available [facility] ([facility]) [address] [place], [address], 12/07/2021 18:31:16 12/08/19 22 12/07/2021 COMPR EHENS SINAN METAB OLIC PANEL anion gap =17.0 7.0-17 .0 Not Available [facility] ([facility] [address] [place], [address], 12/07/2021 18:31:16 12/08/19 22 12/07/2021 COMPR EHENS SINAN METAB OLIC PANEL calcium =9.3 mg/dL 8.6-10 .5 Not Available [facility] ([facility]) [address] , [place], [address], 12/07/2021 18:31:16 12/08/19 22 12/07/2021 COMPR EHENS SINAN METAB OLIC PANEL BUN =17 mg/dL 6-20 Not Available [facility] ([facility]) [address] , [place], [address], 12/07/2021 18:31:16 12/08/19 22 12/07/2021 COMPR EHENS SINAN METAB OLIC PANEL creatinine =1.39 mg/dL 0.70-1 .20 high Not Available [facility] ([facility]) [address] , [place], [address], 12/07/2021 18:31:16 12/08/19 22 12/07/2021 COMPR EHENS SINAN METAB OLIC PANEL eGFR >60.0 Not Available [facility] ([facility]) [address] , [place], [address], 12/07/2021 18:31:16 12/08/19 22 12/07/2021 COMPR EHENS [...] or ethni c subgr oups, such as Hisut nics. Extre me body size, muscl e mass, or nutri ziyad l statu s may alter the eGFR. Refer to K/DOQ I guide lines for resul ts <60 (Kidn ey Disea se Outco mes Quali ty Initi ative ) Not Available [facility] ([facility]) [address] [place], [address], 12/07/2021 18:31:16 12/08/19 22 12/07/2021 COMPR EHENS SINAN METAB OLIC PANEL BUN-creatini ne ratio =12 10-20 Not Available [facility] ([facility]) [address], [place], [address], 12/07/2021 18:31:16 12/08/19 22 12/07/2021 COMPR EHENS SINAN METAB OLIC PANEL protein total =7.3 gm/dL 6.4-8. 3 Not Available [facility] ([facility]) [address], [place], [address], 12/07/2021 18:31:16 12/08/19 22 12/07/2021 COMPR EHENS SINAN METAB OLIC PANEL albumin =4.1 gm/dL 3.5-5. 2 Renal Patie nts 3.1-4 .6 gm/dL Not Available [facility] ([facility] [address], [place], [address], 12/07/2021 18:31:16 12/08/19 22 12/07/2021 COMPR EHENS SINAN METAB OLIC PANEL globulin =3.2 gm/dL 1.4-4. 7 Not Available [facility] ([facility]) [address], [place], [address], 12/07/2021 18:31:16 12/08/19 22 12/07/2021 COMPR EHENS SINNA METAB OLIC PANEL albumin/glob ulin ratio =1.3 1.2-3. 6 Not Available [facility] ([facility]) [address], [place], [address], 12/07/2021 18:31:16 12/08/19 22 12/07/2021 COMPR EHENS SINAN METAB OLIC PANEL alkaline phosphatase =52 U/L 40-129 Not Available [facility] ([facility]) [address], [place], [address], 12/07/2021 18:31:16 12/08/19 22 12/07/2021 COMPR EHENS SINAN METAB OLIC PANEL AST =23 U/L 0-40 Not Available [facility] ([facility]) [address] , [place], [address], 12/07/2021 18:31:16 12/08/19 22 12/07/2021 COMPR EHENS SINNA METAB OLIC PANEL ALT =17 U/L 0-41 Not Available [facility] ([facility]) [address] [place], [address], 12/07/2021 18:31:16 12/08/19 22 12/07/2021 COMPR EHENS SINAN METAB OLIC PANEL bilirubin total =0.89 mg/dL 0.00-1 .20 Not Available [facility] ([facility] [address] [place], [address], 12/07/2021 18:31:16 12/08/19 22 12/07/2021 ALPHA FETOP [...] n and other findi ngs. Not Available [facility] ([facility] [address] [place], [address], 12/07/2021 21:40:21 Result Notes None recorded. 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 Medical [...] Body temperature Heart rate Respiratory rate Systolic And Diastolic Provider Name and Address Organization Details Last Updated DateTime 2 175.26 cm 27.9 kg/m2 31464.6 8 g 96.4 [degF] 57 /min 16 /min 134/85 mm[Hg] Fabi Hiram [facility] 2 12:00:17 Date Recorded Body height Body mass index (BMI) Body weight Heart rate Systolic And Diastolic Provider Name and Address Organization Details Last Updated DateTime 10/27/2020 175.26 cm 25.7 kg/m2 07909.07 g 67 /min 122/84 mm[Hg] Myla Harris [facility] 10/27/2020 11:26:53 Date Recorded Body height Body mass index (BMI) Body weight Body temperature Respiratory rate Heart rate Systolic And Diastolic Provider Name and Address Organization Details Last Updated DateTime 2 175.26 cm 28.4 kg/m2 03321.1 7 g 97.9 [degF] 16 /min 60 /min 116/73 mm[Hg] Ibeth Osman [facility] 2 11:29:03 Social History Question Answer Notes LastModified by [employer] Details LastModified Time Tobacco Smoking Status Former Smoker Fabi Gandhi lucas, [facility] 08/31/2021 12:04:01 Do You Have [...] anxious, or unable to sleep at night)? [id number] Information not available 08/31/2021 Do you have [...] SNOMED-CT Code Diagnosis ICD10 Code Diagnosis Note [id number] MD WALE Davis_[facility]_ [facility] [address], [address] [place] [address] 10/27/2020 11:17:44 10/27/2020 12:01:51 Male hypogonadism 12968974 E29.1 Continue testostero ne cypionate three quarters [...] records when available Chronic ki dney disease 325620345 N18.9 Referral to nephrology . Creatinine borderline elevated for his age at 1.2 [id number] Song Boothe MD CFL_[facility]_ Onc_Hem_V [id number] [address] [place] [address] 08/31/2021 11:39:26 08/31/2021 15:40:26 Hereditary hemochromatosis 74571602 E83.110 [id number] Song Boothe MD [facility]_ Onc_Hem_V _STE_10 [address] [place] [address] 12/07/2021 10:31:57 12/07/2021 12:30:24 Hereditary hemochromatosis 69570363 E83.110 Health Concerns Section Related Observation LastModified by Organization Detai ls LastModified Time None Recorded Concern Status LastModified by Organization Details LastModified Time None Recorded Advance Directives Directive N: Payers Insurance Date Sequence Insurance Name Policy Number Policy Wiggins Covered Member ID Wiggins Member ID Guarantor Name 08/27/2021 1 [place] [id number] Emory Aguilar [id number] Ir[address] Aguilar 08/27/2021 1 [place] [id number] Emory Aguilar [id number] Irvin Aguilar 03/07/2022 1 [place] [facility] (O) [id number] Emory Aguilar [id number] Irvin Jeff Notes Date Note Type Note Provider Name [...] in 6 months Braeden Lee MD [address] , [place], [address], [facility] 10/27/2020 11:54:24 08/31/2021 text/html Diagnosis:Primar [...] 3 months. Mr. Aguilar recently moved from [facility] to [facility] and would like to establish care with us. He last received phlebotomy in April 2020. At that time his blood work showed iron 180, iron saturation 68 ferritin 53 hemoglobin 17.4 hematocrit 50.2. He also received testosterone injection monthly by self injection for hypogonadism. Treatment to Date:Phlebotomies. Song Boothe MD [address] , [place], [address], [facility] 08/31/2021 12:49:01 12/07/2021 text/html Diagnosis:Primar [...] 3 months. Mr. Aguilar recently moved from [facility] to [facility] and would like to establish care with us. He last received phlebotomy in April 2020. At that time his blood work showed iron 180, iron saturation 68 ferritin 53 hemoglobin 17.4 hematocrit 50.2. He also received testosterone injection monthly by self injection for hypogonadism. Treatment to Date:Phlebotomies. Song Boothe MD [address] [place], [address], [facility] 12/07/2021 12:28:48
--- OUTSIDE RECORDS SUMMARY | 2025-02-07 08:48 | XMS_ITS | Data Portability ---
Author Organization [facility], Main Office Address [address] [place] [address] Care Team Providers Care Baker Chef Name Role Phone STEPHANIE CRUZ Primary Care Provider [phone] STEPHANIE CRUZ Referring Provider [phone] STEPHANIE CRUZ Primary Care Provider [phone] MICHAELA ALCAZAR Rail Specialist Assessment No assessment recorded. Plan of Treatment [...] By Organization Details Last Modified Time 01/16/2021 [id number] high blood pressure: care instructions rebel Not [...] you Dr. Pacheco for your kind referral. jfrayaman Not available 01/16/2021 10:02:53 03/26/2021 [id number] high blood pressure: care instructions jfrayadeanna Not available 03/26/2021 16:03:25 learning about high [...] switching Xyrem to Xywav in the future. jfrayaman Not available 03/26/2021 16:03:08 07/09/2021 [id number] high blood pressure: care instructions jfurman Not [...] reasons. rebel Not available 07/09/2021 16:34:18 11/12/2021 [id number] high blood pressure: care instructions jfurman Not [...] Address Organization Details Recorded Time Narcoleps y 52556241 Completed 202003/26/2021 Radha Saavedra CMA null, [facility] - [place] 1 15:18:13 Narcoleps y without cataplexy 775088957617 04 Active 2020 Radha Saavedra CMA null, [place] - [facility] - [place] 15:17:42 Migraine 47249172 Active 2020 Radha Saavedra CMA null, [facility] - [place] 1 15:17:48 Anxiety 53455312 Active 2020 Radha Saavedra CMA null, [facility] [place] 15:17:55 Essential hypertens ion 11292882 Active 2020 Radha Saavedra, JANNA zavala, SELENA - [facility] - [place] 12:43:02 Problem Notes None recorded. Medical Equipment [...] Not Available Not Available No t Available Nurte ODT 75 mg disintegrat ing tablet active [...] in Arterial blood by Pulse oximetry Systolic And Diastolic Systolic And Diastolic Provider Name and Address Organization Details Last Updated DateTime 2 173.99 cm 28.6 kg/m2 19363.1 4 g 64 /min 98 % 98 % 160/80 mm[Hg] 152/80 mm[Hg] [facility] 15:48[facility]12 Date Recorded Body weight Heart rate Oxygen saturation Oxygen saturation in Arterial blood by Pulse oximetry Body mass index (BMI) Body height Systolic And Diastolic Provider Name and Address Organization Details Last Updated DateTime 1 07126.0 7 g 48 /min 98 % 98 % 26.1 kg/m2 173.99 cm 128/64 mm[Hg] Radha Saavedra [facility] [place] 1 09:21:27 Date Recorded Body height Body mass index (BMI) Body weight Heart rate Oxygen saturation Oxygen saturation in Arterial blood by Pulse oximetry Systolic And Diastolic Provider Name and Address Organization Details Last Updated DateTime 1 173.99 cm 26.7 kg/m2 23466.4 4 g 64 /min 98 % 98 % 140/80 mm[Hg] Radha Saavedra [facility] 1 15:34:42 Date Recorded Body height Body mass index (BMI) Body weight Heart rate Oxygen saturation Oxygen saturation in Arterial blood by Pulse oximetry Systolic And Diastolic Provider Name and Address Organization Details Last Updated DateTime 1 173.99 cm 27.7 kg/m2 27684.5 9 g 60 /min 98 % 98 % 132/80 mm[Hg] Radha Saavedra [facility] [place] 1 15:55:16 Social History None recorded. Functional Status None recorded. Mental Status None recorded. Family History Nothing Reported. Medical History No medical history recorded. Past Encounters Encounter ID Performer Location Encounter Start Date Encounter Closed Date Diagnosis/Indication Diagnosis SNOMED-CT Code Diagnosis ICD10 Code Diagnosis Note [id number] Michaela Alcazar MD [address] [facility] [address] [facility], [address] [place] [address] 01/16/2021 08:52:56 01/16/2021 13:39:41 Narcolepsy without cataplexy 5773612516 9104 G47.419 Migraine 37335649 G43.90 9 Essential hypertension 12159659 I10 Anxiety 96623106 F41.9 [id number] Michaela Alcazar MD [address] [facility] [address] [facility], [address] [place] [address] 03/26/2021 15:12:24 03/26/2021 16:20:42 Narcolepsy without cataplexy 2798044976 9104 G47.419 Anxiety 60043148 F41.9 Migraine 69545235 G43.90 9 Essential hypertension 72743712 I10 [id number] Michaela Alcazar MD [address] [facility] [address] [facility], [address] [place] [address] 07/09/2021 15:19:29 07/11/2021 08:59:14 Narcolepsy without cataplexy 2578494984 9104 G47.419 Anxiety 32923145 F41.9 Essential hypertension 38631472 I10 Migraine 11447142 G43.90 9 [id number] Michaela Alcazar MD [address] [facility] [address] [facility], [address] [place] [id number] 4 11/12/2021 15:31:07 11/12/2021 16:22:16 Essential hypertension 63415748 I10 Narcolepsy without cataplexy 8096870404 9104 G47.419 Migraine 83524229 G43.90 9 Health Concerns Section Related Observation LastModified by Organization Detai ls LastModified Time None Recorded Concern Status LastModified by Organization Details LastModified Time None Recorded Advance Directives Directive None Recorded Payers Insurance Date Sequence Insurance Name Policy Number Policy Wiggins Covered Member ID Wiggins Member ID Guarantor Name 04/10/2022 1 [facility] [id number] C Irvin Aguilar [id number] Irvin Aguilar Notes Date Note Type [...] hypertension, hyperlipidemia and hemochromatosis. He moved to [place] in June 2020. Since he moved to [place] has been under lot of stress with a new job. Michaela Alcazar MD [address] [place] [address], [phone], [facility] [employer] 01/16/2021 10:04:11 03/26/2021 text/html Mr. Aguilar is [...] hypertension, hyperlipidemia and hemochromatosis. He moved to [place] in June 2020. Blood pressure was noted to be slightly elevated during today's visit Michaela Alcazar MD [address] [place] [address], [phone], [facility] 03/26/2021 16:03:31 07/09/2021 text/html Mr. Aguilar prese nts for follow-up of narcolepsy diagnosed by [facility] the 2012. Patient recalls having symptoms of narcolepsy [...] hypertension, hyperlipidemia and hemochromatosis. He moved to [place] in June 2020. Blood pressure is controlled with verapamil. Michaela Alcazar MD [address] [place] [address], [phone], [facility] [employer] 07/09/2021 16:34:52 11/12/2021 text/html Mr. Jeff bender nts for follow-up of narcolepsy. Patient was initially [...] hypertension, hyperlipidemia and hemochromatosis. Michaela Alcazar MD [address] [place], [phone], [facility] [employer] 11/12/2021 16:50:19
--- OUTSIDE RECORDS SUMMARY | 2025-02-07 08:48 | XMS_ITS | Data Portability ---
Author Organization [facility], [employer] Address [address] [facility] [address] [place] [address] Assessment No assessment recorded. Plan of Treatment Reminders Order Date Submit Date Provider Last Modified By Organization Details Last Modified Time Details Appointments None recorded. Lab lipid panel, blood 2020 DENEEN Not available 2 05:00:33 CMP, serum or plasma 2020 DENEEN Not available 11:29:50 CBC w/ auto diff 2020 DENEEN Not available 05:00:33 PSA, total + free, serum or plasma 2020 021 DENEEN Not available 05:00:33 Referral sleep medicine referral 2020 DENEENJIM Madden MD, [address], [address], 05:00:29 neurologis t referral 2020 021 DENEEN Rooney MD, [address] [place], [address], 05:00:29 Procedures None recorded. Surgeries None recorded. Imaging None recorded. Medication Orders alprazolam 0.5 mg tablet 2021 022 [facility] #[id number], [address] [place], [address], 2 10:32:33 propranolo l 20 mg tablet 2020 021 DENEEN [facility] #[id number], [address] [place], [address], 11:40:31 testostero ne cypionate 200 mg/mL intramuscu lar oil 2020 021 [facility] #[id number], [address] [place], [address], 11:40:54 hydrochlor othiazide 25 mg tablet 2020 [facility], [address], [place], [place], [id number], 11:13:47 tadalafil 5 mg tablet 2020 021 [facility], [address], [place], [place], [id number], 11:17:41 clindamyci n 1 % topical gel 2020 [facility]FACE [facility], [address], [place], [place], [id number], 11:22:12 Viibryd 20 mg tablet 2020 [facility]FACE [facility], [address], [place], [place], [id number], 11:17:07 Patient TargetsNo targets recorded. Patient Instructions Encounter Date Encounter Id Patient Instructions Last Modified By Organization Details Last Modified Time 09/29/2020 [id number] rash: care instructions Not available 09/29/2020 11:22:11 narcolepsy: care instructions Not available 09/29/2020 11:13:43 anxiety disorder : care instructions Not available 09/29/2020 11:17:04 learning about healthy weight Not available 09/29/2020 11:13:43 11/10/2020 [id number] learning about healthy weight Not available 11/10/2020 11:35:40 10/08/2021 [id number] learning about healthy weight Not available 10/08/2021 [...] and Address Organization Details Recorded Time Migraine 94832746 Active 2020 Not Available [facility] 19:06:32 Narcolepsy 30548623 Active 2020 Not Available [facility] 19:06:32 Hypertensive disorder 34352227 Active 2020 Not Available [facility] 19:06:32 Obsessive-com pulsive disorder 121155951 Active 2020 Not Available [facility] 19:06:32 Generalized anxiety disorder 79128670 Active 2020 Not Available [facility] 19:06:32 Attention deficit hyperactivity disorder, 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 Medical Equipment [...] Updated DateTime 1 172.72 cm 28.1 kg/m2 34580.5 9 g 97.8 [degF] 91 /min 18 /min 97 % 97 % 140/90 mm[Hg] [facility] 1 10:31:13 Date Recorded Body height Body mass index (BMI) Body weight Body temperature Heart rate Respiratory rate Oxygen saturation Oxygen saturation in Arterial blood by Pulse oximetry Systolic And Diastolic Provider Name and Address Organization Details Last Updated DateTime 2 172.72 cm 29.5 kg/m2 29621.9 2 g 96.1 [degF] 82 /min 18 /min 99 % 99 % 145/100 mm[Hg] [facility] 2 16:04:00 Date Recorded Body height Body mass index (BMI) Body weight Body temperature Heart rate Respiratory rate Oxygen saturation Oxygen saturation in Arterial blood by Pulse oximetry Systolic And Diastolic Provider Name and Address Organization Details Last Updated DateTime 1 172.72 cm 27.5 kg/m2 17558.2 2 g 97.4 [degF] 71 /min 18 /min 99 % 99 % 140/86 mm[Hg] Indysierra Prieto [facility] 11:27:48 Social History Question Answer Notes LastModified by Organizat ion Details LastModified Time Tobacco Smoking Status Never Smoker John Saldaña MD [address], [place], [address], [facility] 11/10/2020 11:31:23 What Was The Date Of Your Most Recent Tobacco Screening? 11/10/2020 Information not available 11/10/2020 Sex: Unknown Functional Status None recorded. Mental Status None recorded. Family History Relationship Description Onset Age of this Age Resolved Age Notes LastModified by Organization Details LastModified Time Maternal Uncle Myocardial infarction Not available 09/29 10:54:07 Maternal Grandfather Cerebrovascu lar accident [email or web address] Not available 11/2020 10:54:12 Medical History No medical history recorded. Past Encounters Encounter ID Performer Location Encounter Start Date Encounter Closed Date Diagnosis/Indication Diagnosis SNOMED-CT Code Diagnosis ICD10 Code Diagnosis Note [id number] John Saldaña MD [facility] [address] [place] [address] 09/29/2020 10:29:49 09/29/2020 11:33:41 Body mass index 25-29 - overweight 699377510 Z68.28 Migraine 53136371 G43.90 9 Will need to follow up with neurology for management of his migraines. Hemochromatosis 73848026 6 E83.119 Has a h/o hemochroma tosis. Will be following up with hematology . Hypertensive disorder 38 955282 I10 Has been managed with verapamil, and propranolo l. Was started on these for migraine, and tremor. Hypogonadism 93192620 E2 9.1 Has been on testostero ne replacemen t. Will need to review records. With respect to hemochroma tosis, will need to follow hgb closely. Narcolepsy 02919481 G47. 419 Has been seen with a sleep study in the past, and has been negative. Has been rosa long. Will need to follow up with sleep medicine for ongoing discussion . Generalize d anxiety disorder 99951852 F41.1 Erectile dysfunction 860 268172 F52.21 Eruption 413098908 R21 [id number] John Saldaña MD [facility] [address] [address] 11/10/2020 11:24:26 11/16/2020 09:41:58 Active or passive immunization 102382615 Z23 Adult [facility] th examination 856112154 Z00.00 Patient is encouraged to participat e in a regular exercise regimen including weight training, and cardio of 30-60 minutes per day. Patient is encouraged to monitor their diet including avoiding high fat foods, and excess calories as well as encouraged to consume fruits and vegetables regularly. BP is acceptable . Due for CBC, CMP and Lipids. Screening for cardiovascular system disease 116033373 Z13.6 Hypertensive disorder 38 690475 I10 Has been managed with verapamil, and propranolo l. Was started on these for migraine, and tremor. Body mass index 25-29 - overweight 028732316 Z68.28 encourage patient to maintain active lifestyle, and exercise. Migraine 01265941 G43.90 9 Will need to follow up with neurology for management of his migraines. Hypogonadism 44319643 E2 9.1 Has been on testostero ne replacemen t. Will need to review records. With respect to hemochroma tosis, will need to follow hgb closely. E Force 11/10/20 Depression screening 171 424124 Z13.31 negative [id number] John Saldaña MD [facility] [address] [facility] [address] [place] [address] 10/08/2021 16:01:29 10/08/2021 16:16:25 Body mass index 25-29 - overweight 104430821 Z68.28 encourage patient to maintain active lifestyle, and exercise. Anxiety 87374939 F41.9 E Force 10/08/21 Patient will be [...] Member ID Wiggins Member ID Guarantor Name 10/07/2021 1 [employer] [id number] C Irvin Aguilar [id number] Irvin Aguilar Notes Date Note Type Note Provider Name and Address Organization Details Recorded Time 09/29/2020 text/html Patient here tod to establish care. Moved here from [place]. Will need referrals to specialists or prescriptions condensed. Has a h/o migraines, hemochromatosis, hypogonadism, htn, migraines. He will get episodic phlebotomies. Will be seeing, Dr. Boothe. Further, has a h/o narcolepsy. Has been managed with xyrem. John Saldaña MD [address], [place], [address], [facility] 10/09/2020 13:59:17 11/10/2020 text/html Here today for annual exam. Is trying to exercise. John Saldaña MD [address], [place], [address], [facility] 11/16/2020 09:41:13 10/08/2021 text/html Here today for concerns of anxiety. Has a phobia of flying. Will be flying for an intervieew John Saldaña MD [address], [place], [address], [facility] - [facility] 10/09/2021 10:33:33
--- OUTSIDE RECORDS SUMMARY | 2025-02-07 08:49 | XMS_ITS | Data Portability ---
Author Organization [place] [facility], Main Office Address [address] [place] [address] Care Team Providers Care Clinical Writer Name Role Phone LEROY HERNANDEZ Primary Care Provider [phone] Assessment Encounter Date Assessment Date Assessment LastModified by Organization Details LastModified Time 01/10/2025 01/10/2025 54 yo M with - WELL ADULT VISIT - HTN - DEPRESSION - ANXIETY - MALE HYPOGONADISM - MIGRAINE - NARCOLEPSY - HEMOCHROMATOSIS - OVERWEIGHT CXR: 06/03/24. D/w pt about his findings, recent labs & imagines and further plan of care. Will do routine labs. All meds verified with pt. Meds as directed. Diet and exercise explained in detail. Cont f/u with Hemat at [place] as per schedule. Cont f/u with Neuro at [facility] as per schedule. Cont f/u with Ophtho as per schedule. Offered to refer to Psych/counsellor; but pt declined. Offered to refer to Uro; but pt declined. Educated pt about alarming symptoms to monitor at home. HM: Colonoscopy - Referred to GI. Flu - 05/20. Tdap - 01/10/25. Pneumo - 09/19. Shingrix - At pharmacy/HD. F/u in 2-3 weeks. Annual labs in 01/20. [email or web address] Not available 01/10/2025 17:23:20 Plan of Treatment Reminders Order Date Submit Date Provider Last Modified By Organization Details Last Modified Time Details Appointments Any 15 2024 03:45P M Leroy Hernandez MD Not available Not available Not available Lab testoster one, free + total, serum [address] [facility] (Lab), [address] [place], [address], 01/22/2025 16:38:48 CMP, serum or plasma [address] (Lab), [address] [place], [address], 01/27/2025 13:54:07 CBC w/ auto diff [address] (Lab), [address] [place], [address], 01/27/2025 13:54:07 lipid panel, blood [address] (Lab), [address] [place], [address], 01/27/2025 13:54:07 TSH, serum, reflex free T4 [address] (Lab), [address] [place], [address], 01/27/2025 13:54:07 PSA, serum or plasma [address] (Lab), [address] [place], [address], 01/27/2025 13:54:07 urinalysi s complete, reflex culture [address] (Lab), [address] [place], [address], 01/27/2025 13:54:08 vitamin B12 + folate, serum or blood [address] (Lab), [address] [place], [address], 01/27/2025 13:54:08 vitamin D3, 25-hydrox y, serum [address] (Lab), [address] [place], [address], 01/27/2025 13:54:08 magnesium , serum or plasma [address] (Lab), [address] [place], [address], 01/27/2025 13:54:08 glycohemo globin, total, blood [address] (Lab), [address] [place], [address], 01/27/2025 13:54:08 PSA, serum or plasma 2023 024 [email or web address] Not available 09/09/2023 12:33:46 Referral gastroent erologist referral - Please call patient to schedule an appointme nt. Thank you. 2024 025 [facility], [address], [address], [address], 01/17/2025 10:35:26 Procedures None recorded. Surgeries None recorded. Imaging XR, chest, 2 view 2023 024 DENEEN Not available 06/03/2024 16:29:14 Medication Orders propranol ol 20 mg tablet 2024 025 [facility]armacy #3259, [address] [place], [address], 01/10/2025 17:12:19 verapamil 120 mg tablet 2024 025 [facility]/Pharmacy #3259, [address] [place], [address], 01/10/2025 17:12:18 vilazodon e 20 mg tablet 2024 025 [facility]/Pharmacy #3259, [address] [place], [address], 01/10/2025 17:12:19 prednison e 20 mg tablet 2023 [address] [place], [address], 01/10/2025 16:58:50 ciproflox acin 500 mg tablet 2023 [address]24 [address] [place], [address], 01/10/2025 16:59:11 promethaz ine-DM 6.25 mg-15 mg/5 mL oral syrup 2023 [address]24 [address] [place], [address], 01/10/2025 16:58:43 testoster one cypionate 200 mg/mL intramusc ular oil 2023 024 [facility] [address] [place], [address], 08/13/2023 16:44:59 Patient TargetsNo targets recorded. Patient InstructionsNo instructions recorded. Reason for Referral Accounts Clerk Referral for Screening colonoscopy Please call patient to schedule an appointment. Thank you. Referring Physician: Leroy Hernandez, Family Medicine, Encounter Date: 01/10/2025 Results Created Date Observation Date Name Description Value Unit Range Abnormal Flag Note LastModifiedBy Organization Detail LastModifiedTime 06/03/20 24 06/03/2024 XR, chest , 2 view No observ ation record ed. [email or web address] [place] [address], [address], 01/10/2025 16:57:25 Result Notes None recorded. Problems Name Problem SNOMED Code Status Onset Date Resolution Date Notes Provider Name and Address Organization Details Recorded Time Migraine 85130765 Active 2021 Not Available [facility] 3 01:25:39 Hemochroma tosis 972067715 Active 2021 Not Available [facility] 3 01:25:39 Narcolepsy 43694507 Active 2021 Not Available [facility] 3 01:25:39 Screening for malignant neoplasm of prostate Active 2023 SELENA Scott [address], [place], [address] , [employer] 4 16:49:58 Administra tion of influenza vaccine Active 2023 SELENA Scott [address], [address], [place], [address] , [employer] 4 16:50:45 Cough 04394562 Active 2023 SELENA Scott [address], [address], [place], [address] , [employer] 4 15:00:22 Male hypogonadi sm 70061966 Active 2024 Leroy Hernandez MD [address], [place], [address] , [employer] 5 12:17:45 Body mass index 25-29 - overweight 936305035 Active 2024 Leroy Hernandez MD [address], [address], [place], [address] , [employer] 5 16:59:52 Narcolepsy without cataplexy 4477282243230 4 Active 2024 Leroy Hernandez MD [address], [address], [place], [address] , [employer] 5 17:02:35 Depressive disorder 08599786 Active 2024 Leroy Hernandez MD [address], [address], [place], [address] , [employer] 17:05:07 Chronic anxiety 239777529 Active 2024 Leroy Hernandez MD [address], [address], [place], [address] , [employer] [facility] 17:05:28 Benign hypertensi on 80721120 Active 2024 Leroy Hernandez MD [address], [address], [place], [address] , [employer] 17:10:30 Problem Notes None recorded. Procedures Surgical History Date Name Laterality Status Provider Name and Address Organization Details Recorded Time Tonsillectomy completed Not Available [facility] 09/26/2022 01:24:40 release of trigger finger completed Not Available [facility] 09/26/2022 01:24:40 Carpal tunnel completed Not Available [facility] 09/26/2022 01:24:40 procedure on nerve completed Not Available [facility] 09/26/2022 01:24:40 Imaging Results None recorded. Procedure Notes None recorded. Medical Equipment None Reported. Allergies No known drug allergies Medications Name Sig Start Date Stop Date Status Note LastModified by Organization Details LastModified Time promethazin e-DM 6.25 mg-15 mg/5 mL oral syrup TAKE 5 ML BY MOUTH EVERY 4 HOURS NEEDED FOR 10 DAYS 01/10 completed Not Available Not Available Not Available doxycycline hyclate 100 mg capsule TAKE 1 CAPSULE BY MOUTH EVERY DAY 01/10 completed Not Available Not Available Not Available benzonatate 200 mg capsule TAKE 1 CAPSULE BY MOUTH EVERY 8 HOURS NEEDED FOR COUGH 01/10 completed Not Available Not Available Not Available sumatriptan 100 mg tablet TAKE 1 TABLET BY MOUTH EVERY DAY NEEDED FOR MIGRANE HEADACHE active Not Available Not Available No t Available prednisone 20 mg tablet PLEASE SEE ATTACHED FOR DETAILED DIRECTION S 01/10 completed Not Available Not Available Not Available ciprofloxac in 500 mg tablet TAKE 1 TABLET BY MOUTH EVERY 12 HOURS FOR 10 DAYS 01/10 completed Not Available Not Available Not Available verapamil 120 mg tablet TAKE 1 TABLET BY MOUTH TWICE A DAY 2024 active Not Available Not Available Not Avai lable BD Luer-Bianka Syringe 3 mL 23 gauge x 1 1/2 USE DIRECTED active Not Available Not Available No t Available diazepam 2 mg tablet TAKE 1 TABLET BY MOUTH 15-MINUTE S BEFORE THE PHLEBOTOM Y active Not Available Not Available No t Available benzonatate 100 mg capsule TAKE 1 CAPSULE BY MOUTH THREE TIMES A DAY 08/13 completed Not Available Not Available Not Available oseltamivir 75 mg capsule TAKE 1 CAPSULE BY MOUTH TWICE A DAY FOR 5 DAYS 01/10 completed Not Available Not Available Not Available testosteron e cypionate 200 mg/mL intramuscul ar oil INJECT 150 MG EVERY WEEK BY INTRAMUSC ULAR ROUTE DIRECTED FOR 30 DAYS. active Not Available Not Available No t Available albuterol sulfate HFA 90 mcg/actuati on aerosol inhaler INGHALE 1-2 PUFFS EVERY 4-6 HOURS ASNEEDED FOR COUGH active Not Available Not Available No t Available propranolol 20 mg tablet TAKE 1 TABLET BY MOUTH TWICE A DAY 2024 active Not Available Not Available Not Avai lable ondansetron 4 mg disintegrat ing tablet DISSOLVE 1 TABLET ON TOP OF THE TONGUE AND SWALLOW EVERY 8 HOURS NEEDED FOR NAUSEA AND VOMITING active Not Available Not Available No t Available naproxen 500 mg tablet TAKE 1 TABLET BY MOUTH TWICE A DAY NEEDED FOR PAIN active Not Available Not Available No t Available amoxicillin 875 mg-juwanu m clavulanate 125 mg tablet TAKE 1 TABLET BY MOUTH TWICE A DAY 08/13 completed Not Available Not Available Not Available Xyrem 500 mg/mL oral solution 08/13 completed Not Available Not Available Not Available tadalafil 5 mg tablet Take 1 tablet every day by oral route. 2024 active Not Available Not Available Not Avai lable BD SafetyGlide Needle 18 gauge x 1 1/2 USE DIRECTED active Not Available Not Available No t Available vilazodone 20 mg tablet Take 1 tablet every day by oral route in the morning for 90 days. 2024 active Not Available Not Available Not Avai lable Proair Digihaler 90 mcg/actuati on aerosol powder [...] Address Organization Details Last Updated DateTime 4 82058.7 g 97.7 [degF] 68 /min 98 % 98 % 132/78 mm[Hg] Whitney Dillon MA [facility] [employer] [facility] 4 16:36:30 Date Recorded Body height Body mass index (BMI) Body weight Body temperature Oxygen saturation Oxygen saturation in Arterial blood by Pulse oximetry Heart rate Systolic And Diastolic Provider Name and Address Organization Details Last Updated DateTime 5 175.26 cm 28.9 kg/m2 10920.1 g 97.1 [degF] 97 % 97 % 61 /min 130/70 mm[Hg] Radha Solorio RN [facility] [employer] [facility] 5 16:52:12 Date Recorded Body mass index (BMI) Body height Oxygen saturation Oxygen saturation in Arterial blood by Pulse oximetry Heart rate Body temperature Body weight Systolic And Diastolic Provider Name and Address Organization Details Last Updated DateTime 2 27.1 kg/m2 173.99 cm 97 % 97 % 63 /min 98.4 [degF] 34881.2 2 g 176/90 mm[Hg] Not Available [facility] 3 01:24:51 Date Recorded Body weight Body mass index (BMI) Body height Body temperature Heart rate Oxygen saturation Oxygen saturation in Arterial blood by Pulse oximetry Systolic And Diastolic Provider Name and Address Organization Details Last Updated DateTime 4 90390.3 3 g 28.5 kg/m2 175.26 cm 99 [degF] 65 /min 97 % 97 % 128/86 mm[Hg] Tasneem Gaona RN [facility] [employer] [facility] 4 14:38:47 Social History Question Answer Notes LastModified by Organizat ion Details LastModified Time Tobacco Smoking Status Never Smoker Not Available [facility] 09/26/2022 01:23:56 How Many Years Have You Consumed Alcohol? 11 [email or web address] Information not available 01/10/2025 What Is Your Level Of Caffeine Consumption? None [email or web address] Information not available 01/10/2025 How Many Years Have You Used Smokeless Tobacco? 15 Quit 2009 Information not available 01/10/2025 Sex: Unknown Functional Status Question Answer Note LastModified by Organizat ion Details LastModified Time Do you use any illicit or recreational drugs? No [email or web address] Information not available 01/10/2025 Do you or have you ever used any other forms of tobacco or nicotine? Yes [id number] Information not available 09/26/2022 What is your level of alcohol consumption? Occasional [email or web address] Information not available 01/10/2025 Do you or have you ever used smokeless tobacco? Former smokeless tobacco user [id number] Information not available 09/26/2022 Do you or have you ever used e-cigarettes or vape? Never used electronic cigarettes [email or web address] Information not available 01/10/2025 Mental Status None recorded. Family History Relationship Description Onset Age of this Age Resolved Age Notes LastModified by Organization Details LastModified Time Father Hypercholest erolemia [email or web address].530 [id number] Not available 09/26/2022 01:24:41 Father Heart disease [email or web address].959 [id number] Not available 09/26/2022 01:24:41 Father Kidney disease MIGRATION.898 [id number] Not available 09/26/2022 01:24:41 Father Kidney stone MIGRATION.0 30 [id number] Not available 09/26/2022 01:24:41 Father Diabetes mellitus MIGRATION.506 [id number] Not available 09/26/2022 01:24:42 Father Hypertensive disorder MIGRATION.771 [id number] Not available 09/26/2022 01:24:42 Paternal Grandfather Hypercholest erolemia MIGRATION.184 [id number] Not available 09/26/2022 01:24:42 Paternal Uncle Hypercholest erolemia MIGRATION.337 [id number] Not available 09/26/2022 01:24:42 Maternal Grandmother Diabetes mellitus MIGRATION.525 [id number] Not available 09/26/2022 01:24:42 Maternal Grandfather Myocardial infarction MIGRATION.652 [id number] Not available 09/26/2022 01:24:42 Maternal Grandfather Hypertensive disorder MIGRATION.017 [id number] Not available 09/26/2022 01:24:42 Maternal Grandfather Family history of stroke MIGRATION.583 [id number] Not available 09/26/2022 01:24:42 Medical History Condition Response BLINDNESS N RHEUMATIC FEVER N KIDNEY STONES N BLADDER PROBLEMS N MRSA N OTHER # 1 N POLIO N LUNG DISEASE/DISORDER N HISTORY OF DRUG ABUSE N COPD N RADIATION / CHEMOTHERAPY N Other # 2 N BLOOD DISEASES Y SURGERY N EAR OR HEARING PROBLEMS N MUMPS N SHINGLES N FEMALE PROBLEMS / INFECTIONS N DEPRESSION (INCLUDING POST ) Y BOWEL PROBLEMS N STROKE/TIA N THYROID DISEASE N ULCERS N BENIGN PROSTATIC HYPERPLASIA N MEASLES N CERVICALGIA N HYPOTENSION N TB SKIN TEST N MYOCARDIAL INFARCTION N OBESITY N PARAPELGIA N GERD/NAUSEA N ANEURYSM N URINARY/BLADDER/KIDNEY PROBLEMS [...] GLAUCOMA N FOOT PROBLEM N DIVERTICULITIS N SLEEP APNEA N CHICKENPOX N ALLERGIES/HAYFEVER N INFECTIOUS DISEASE N PROSTATE N HEART ARRHYTHMIA N INSOMNIA N HIGH CHOLESTEROL / HYPERLIPIDEMIA N HYPERTHYROIDISM N EYE PROBLEMS N EATING DISORDER N EDEMA N CHRONIC PAIN SYNDROME N CONSTIPATION N CAROTID BLOCKAGE N BACK / NECK PROBLEMS N HAVE YOU BEEN HOSPITALIZED OR SEEN IN [facility] IN THE PAST YEAR ? N ATHEROSCLEROSIS [...] N PAIN N HERPES N DEMENTIA N SEIZURES/EPILEPSY N HEADACHES/MIGRAINES Y VASCULAR DISEASE N PACEMAKER N DIZZINESS N KIDNEY DISEASE N HEART DISEASE/HEART PROBLEMS N SCARLET FEVER N MULTIPLE SCLEROSIS N MENTAL DISORDER/ILLNESS N DEVELOPMENTAL OR BEHAVIORAL DISORDERS N CARDIAC ARRHYTHMIA N CANCER: SPECIFY N PNEUMONIA N Gall Stones N ATRIAL FIBRILLATION N PULMONARY EMBOLISM N AUTOIMMUNE DISEASE N Immunizations Vaccine Type Date Status Note Provider Nam e and Address Organization Details Recorded Time Tdap 5 completed Radha Solorio RN [employer] [place] [employer] 01/10/2025 17:24:40 Influenza, MDCK, quadrivalent, PF 2 completed Leroy Hernandez MD [address], [address], [place], [address], [employer] 01/10/2025 16:57:38 COVID-19, mRNA, LNP-S, bivalent, PF, 30 mcg/0.3 mL dose 3 completed Leroy Hernandez MD [address], [address], [place], [address], [employer] 01/10/2025 16:57:38 pneumococcal polysaccharide PPV23 3 completed Leroy Hernandez MD [address], [place], [address], [employer] 01/10/2025 16:57:38 Influenza, MDCK, trivalent, PF 4 completed Leroy Hernandez MD [address], [address], [place], [address], [employer] 01/10/2025 16:57:49 Influenza, split virus, quadrivalent, PF 4 completed SELENA Scott [address], [address], [place], [address], [employer] 08/16/2023 20:48:59 Past Encounters Encounter ID Performer Location Encounter Start Date Encounter Closed Date Diagnosis/Indication Diagnosis SNOMED-CT Code Diagnosis ICD10 Code Diagnosis Note [id number] Lu Diaz MD [facility] [place] [address] [facility] [place] [address] 04/17/2022 00:00:00 04/18/2022 08:53:30 [id number] Lu Diaz MD [facility] [address] [place] [place] [address] 08/13/2023 16:20:20 08/13/2023 17:06:44 Renewal of prescription 035981523 Z76.0 Screening for malignant neoplasm of prostate 440928908 Z12.5 Administra tion of influenza vaccine 45423134 Z23 Hemochromatosis 52603315 6 E83.119 Narcolepsy 78098760 G47. 250 [id number] Leroy Hernandez MD [address] [place] [address] 06/03/2024 14:26:19 06/03/2024 15:05:30 Cough 79038754 R05.9 [id number] Leroy Hernandez MD [address] [address] 01/10/2025 16:45:33 01/10/2025 17:24:08 Adult health examination 065269693 Z00.00 Body mass index 25-29 - overweight 380899921 E66.3 Hemochromatosis 80985013 6 E83.119 Migraine 07844487 G43.90 9 Narcolepsy without cataplexy 9214594738 9104 G47.419 Depressive disorder 3548 9007 F32.A Chronic anxiety 75729107 9 F41.9 Male hypogonadism 151717 06 E29.1 Screening colonoscopy 44 4764207 Z12.11 Active immunization 3387 9002 Z23 Benign hypertension 1072 5009 I10 Health Concerns Section Related Observation LastModified by Organization Detai ls LastModified Time None Recorded Concern Status LastModified by Organization Details LastModified Time None Recorded Advance Directives Directive None Recorded Payers Insurance Date Sequence Insurance Name Policy Number Policy Wiggins Covered Member ID Wiggins Member ID Guarantor Name 01/07/2025 1 BCMECHELLE-CIRO (PPO) [id number] Irvin Aguilar [id number] Irvin Aguilar Notes Date Note Type Note Provider Name and Address Organization Details Recorded Time 08/13/2023 text/html needs testosterone Edward SELENA Peguero [address] [place] [address], [facility] [address], [place], [address], [employer] 08/16/2023 20:50:58 06/03/2024 text/html no fever . SELENA Scott [address], [facility] [address], [place], [address], [employer] [facility] [employer] 06/28/2024 12:30:01 01/10/2025 text/html Pt is here for h is med refill and annual exam. Doing overall well with his current meds. Denies any problem with meds. Denies any new concern. Doing well with him mood and anxiety. Denies any mood swings/SI/HI. Pt is f/u with Dr. Goldberg for his Hemochromatosis and is getting Phlebotomy every 1-3 months with him. Pt is f/u with Neuro at [place] for his migraine and narcolepsy and is on meds by them. Leroy Hernandez MD [address], [facility] [address], [place], [address], [employer] [facility] [employer] 01/10/2025 17:26:41
--- OUTSIDE RECORDS SUMMARY | 2025-02-07 08:49 | XMS_ITS | Clinical Summary ---
Author Organization [facility] Address [address] [place] [address] Phone Care Team Providers Care Photoengraving Sketch Maker Name Role Phone Lu Diaz MD Primary Care Provider [phone]- [phone] Davina Balderrama WOOD HEEL ATTACHER, PIPE STEM REPAIRER Unavailable +1- [phone] Allergies No known active allergies Medications doxycycline [...] of 3 - 19+ 3-dose series) 1991 Cologuard 2017 Colonoscopy 2017 Colorectal Cancer Screening 2017 Immunochemical Fecal Occult Blood 2017 Pneumococcal Immunization (5 0+ years) (1 of 1 - PCV) 2022 Zoster Immunization (1 of 2) 2022 SARS-COV-2 Immunization ( - 2023- season) 2024 Influenza Immunization (#1) 2025 08/2 03/2022, 04/15/2017, 05/13/2014 Respiratory Syncytial Virus (RSV) Immunization [...] patient's age to complete this topic Insurance [facility] Care Teams Photoengraving Sketch Maker Relationship Specialty Start Date End Date Lu Diaz MD [facility] [facility] [place] [address] PCP - General Blow Down Operator 05/01/22 Davina Balderrama APRN, PIPE STEM REPAIRER [address] [place] [address] Nurse Practitioner Advanced Practice Nurse 05/28/22
--- OUTSIDE RECORDS SUMMARY | 2025-02-07 08:49 | XMS_ITS | Clinical Summary ---
Author Organization [facility] Address [address] [place] [address] Care Team Providers Care Route Aide Name Role Phone Lu Diaz MD Primary Care Provider [phone]- [phone] Allergies No known active allergies Medications ALPRAZolam [...] 5 mg tablet daily Active testosterone cypionate (DEPO-TESTOTERO NE) 100 mg/mL injection Inject 1.5 mL (150 mg total) into the muscle as instructed once a week Active verapamiL (CALAN) 120 mg tablet Take 1 tablet (120 mg total) by mouth 2 (two) times a day 6 Active vilazodone (VIIBRYD) 20 mg tablet vilazodone 20 mg tablet Active sodium oxybate (Xyrem) 500 mg/mL solutionIndicat ions:Narcolepsy Syndrome Take 4.5 g by mouth 2 (two) times a day 540 mL 5 4 Active sodium,calcium, mag,pot oxybate (Xywav) 0.5 gram/mL solutionIndicat ions:Cataplexy with associated Narcolepsy Take 4.5 g at bed time, then take 4.5 g 2.5-4 hours later. 540 mL 3 5 Active Active Problems Problem Noted Date Diagnosed Date DAVID (obstructive sleep apnea) 09/16/2023 Encounters Date Type Department Care Team Description 11/11/2024 2:00 PM CDT Office Visit [facility] [address] [place] [address] [address] [address] Rosalind Barton MD Narcolepsy without cataplexy(347.00) (Primary Dx); DAVID (obstructive sleep apnea) from Last 3 Months Surgical History Surgery [...] patient's age to complete this topic Insurance [employer] [place] [employer] [place] Care Teams Route Aide Relationship Specialty Start Date End Date Lu Diaz MD [address] [place] [address] [address] [place], [place] [id number] PCP - General Family Medicine 04/24/22
--- OUTSIDE RECORDS SUMMARY | 2025-02-07 08:49 | XMS_ITS | Referral Summary ---
Author Organization [facility] Address [address] [place] [address] Care Team Providers Care Eyewear Manufacturing Supervisor Name Role Phone Lu Diaz MD Primary Care Provider [phone]- [phone] Encounters Date Type Department Care Team Description 11/11/2024 2:00 PM CDT Office Visit [facility] [address] [facility] [address] [place] [address] Rosalind Barton MD Narcolepsy without cataplexy(347.00) (Primary Dx); DAVID (obstructive sleep apnea) from Last 3 Months Allergies No known [...] Plan of Treatment Not on file Insurance [facility] [employer] [facility] Care Teams Eyewear Manufacturing Supervisor Relationship Specialty Start Date End Date Lu Diaz MD [facility] [place], [place] [id number] PCP - General Family Medicine 04/24/22
== END 2025-02-07 08:42 | disposition home or self-care (01) ==
PROVIDERS: PCP Family Medicine; Visit Provider Internal Medicine Hematology & Oncology
DX: C92.10 Chronic myeloid leukemia, BCR/ABL-positive, not having achieved remission (principal)
CPT/HCPCS: 71260; 74177; Q9967

== ENCOUNTER 2025-02-14 17:11 | Outpatient (CLI) | payer BC, SELFPAY ==
--- OUTSIDE RECORDS SUMMARY | 2025-02-14 17:17 | XMS_ITS | Data Portability ---
Author Organization [facility], [employer] Address [address] [facility] [address] [place] [address] Assessment No assessment recorded. Plan of Treatment [...] referral 2020 DENEENJIM Madden MD, [address], [address], 05:00:29 neurologis t referral 2020 021 DENEEN Rooney MD, [address] [place], [address], 05:00:29 Procedures None recorded. Surgeries None recorded. Imaging None recorded. Medication Orders alprazolam 0.5 mg tablet 2021 022 [facility][id number], [address] [place], [address], 2 10:32:33 propranolo l 20 mg tablet 2020 021 DENEEN [facility] #[id number], [address] [place], [address], 11:40:31 testostero ne cypionate 200 mg/mL intramuscu lar oil 2020 021 [facility] #[id number], [address] [place], [address], 11:40:54 hydrochlor othiazide 25 mg tablet 2020 INTERFACE [facility], [address], [place], [place], [id number], 11:13:47 tadalafil 5 mg tablet 2020 021 INTERFACE [facility], [address], [place], [place], [id number], 11:17:41 clindamyci n 1 % topical gel 2020 INTERFACE [facility], [address], [place], [place], [id number], 11:22:12 Viibryd 20 mg tablet 2020 INTERFACE [facility], [address], [place], [place], [id number], 11:17:07 Patient TargetsNo targets recorded. Patient Instructions Encounter Date Encounter Id Patient Instructions Last Modified By Organization Details Last Modified Time 09/29/2020 [id number] rash: care instructions Not available 09/29/2020 11:22:11 narcolepsy: care instructions Not available 09/29/2020 11:13:43 anxiety disorder : care instructions Not available 09/29/2020 11:17:04 learning about healthy weight Not available 09/29/2020 11:13:43 11/10/2020 [id number] learning about healthy weight Not available 11/10/2020 11:35:40 10/08/2021 [id number] learning about healthy weight Not available 10/08/2021 [...] and Address Organization Details Recorded Time Migraine 42718329 Active 2020 Not Available [facility] 19:06:32 Narcolepsy 85304975 Active 2020 Not Available [facility] 19:06:32 Hypertensive disorder 07509619 Active 2020 Not Available [facility] 19:06:32 Obsessive-com pulsive disorder 368525607 Active 2020 Not Available [facility] 19:06:32 Generalized anxiety disorder 45474289 Active 2020 Not Available [facility] 19:06:32 Attention deficit hyperactivity disorder, 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 Medical Equipment [...] Updated DateTime 1 172.72 cm 28.1 kg/m2 38946.5 9 g 97.8 [degF] 91 /min 18 /min 97 % 97 % 140/90 mm[Hg] [facility] 1 10:31:13 Date Recorded Body height Body mass index (BMI) Body weight Body temperature Heart rate Respiratory rate Oxygen saturation Oxygen saturation in Arterial blood by Pulse oximetry Systolic And Diastolic Provider Name and Address Organization Details Last Updated DateTime 2 172.72 cm 29.5 kg/m2 94611.9 2 g 96.1 [degF] 82 /min 18 /min 99 % 99 % 145/100 mm[Hg] [facility] 2 16:04:00 Date Recorded Body height Body mass index (BMI) Body weight Body temperature Heart rate Respiratory rate Oxygen saturation Oxygen saturation in Arterial blood by Pulse oximetry Systolic And Diastolic Provider Name and Address Organization Details Last Updated DateTime 1 172.72 cm 27.5 kg/m2 94796.2 2 g 97.4 [degF] 71 /min 18 /min 99 % 99 % 140/86 mm[Hg] Indysierra Prieto [facility] 11:27:48 Social History Question Answer Notes LastModified by Organizat ion Details LastModified Time Tobacco Smoking Status Never Smoker John Saldaña MD [address], [place], [address], [facility] 11/10/2020 11:31:23 What Was The Date Of Your Most Recent Tobacco Screening? 11/10/2020 Information not available 11/10/2020 Sex: Unknown Functional Status None recorded. Mental Status None recorded. Family History Relationship Description Onset Age of this Age Resolved Age Notes LastModified by Organization Details LastModified Time Maternal Uncle Myocardial infarction [email or web address] Not available 09/29 10:54:07 Maternal Grandfather Cerebrovascu lar accident [email or web address] Not available 11/2020 10:54:12 Medical History No medical history recorded. Past Encounters Encounter ID Performer Location Encounter Start Date Encounter Closed Date Diagnosis/Indication Diagnosis SNOMED-CT Code Diagnosis ICD10 Code Diagnosis Note [id number] John Saldaña MD [facility] [address] [place] [address] 09/29/2020 10:29:49 09/29/2020 11:33:41 Body mass index 25-29 - overweight 544288658 Z68.28 Migraine 94754726 G43.90 9 Will need to follow up with neurology for management of his migraines. Hemochromatosis 64444203 6 E83.119 Has a h/o hemochroma tosis. Will be following up with hematology . Hypertensive disorder 38 473218 I10 Has been managed with verapamil, and propranolo l. Was started on these for migraine, and tremor. Hypogonadism 91943076 E2 9.1 Has been on testostero ne replacemen t. Will need to review records. With respect to hemochroma tosis, will need to follow hgb closely. Narcolepsy 94108871 G47. 419 Has been seen with a sleep study in the past, and has been negative. Has been rosa long. Will need to follow up with sleep medicine for ongoing discussion . Generalize d anxiety disorder 36028469 F41.1 Erectile dysfunction 860 690171 F52.21 Eruption 560468322 R21 [id number] John Saldaña MD [facility] [address] [address] 11/10/2020 11:24:26 11/16/2020 09:41:58 Active or passive immunization 812932599 Z23 Adult [facility] th examination 973776916 Z00.00 Patient is encouraged to participat e in a regular exercise regimen including weight training, and cardio of 30-60 minutes per day. Patient is encouraged to monitor their diet including avoiding high fat foods, and excess calories as well as encouraged to consume fruits and vegetables regularly. BP is acceptable . Due for CBC, CMP and Lipids. Screening for cardiovascular system disease 921007616 Z13.6 Hypertensive disorder 38 062386 I10 Has been managed with verapamil, and propranolo l. Was started on these for migraine, and tremor. Body mass index 25-29 - overweight 155697852 Z68.28 encourage patient to maintain active lifestyle, and exercise. Migraine 10579489 G43.90 9 Will need to follow up with neurology for management of his migraines. Hypogonadism 12654910 E2 9.1 Has been on testostero ne replacemen t. Will need to review records. With respect to hemochroma tosis, will need to follow hgb closely. E Force 11/10/20 Depression screening 171 171847 Z13.31 negative [id number] John Saldaña MD [facility] [address] [facility] [address] [place] [address] 10/08/2021 16:01:29 10/08/2021 16:16:25 Body mass index 25-29 - overweight 367487394 Z68.28 encourage patient to maintain active lifestyle, and exercise. Anxiety 35599687 F41.9 E Force 10/08/21 Patient will be [...] ID Guarantor Name 10/07/2021 1 [employer] [id number] C Irvin Aguilar [id number] Irvin Aguilar Notes Date Note Type Note Provider Name and Address Organization Details Recorded Time 09/29/2020 text/html Patient here tod to establish care. Moved here from [place]. Will need referrals to specialists or prescriptions condensed. Has a h/o migraines, hemochromatosis, hypogonadism, htn, migraines. He will get episodic phlebotomies. Will be seeing, Dr. Boothe. Further, has a h/o narcolepsy. Has been managed with xyrem. John Saldaña MD [address], [place], [address], [facility] 10/09/2020 13:59:17 11/10/2020 text/html Here today for annual exam. Is trying to exercise. John Saldaña MD [address], [place], [address], [facility] 11/16/2020 09:41:13 10/08/2021 text/html Here today for concerns of anxiety. Has a phobia of flying. Will be flying for an intervieew John Saldaña MD [address], [place], [address], [facility] - [facility] 10/09/2021 10:33:33
--- OUTSIDE RECORDS SUMMARY | 2025-02-14 17:17 | XMS_ITS | Data Portability ---
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 3.5-5. 2 Not Available [facility] ([facility]) [address], [place], [address], 12/07/2021 18:31:16 12/08/19 22 12/07/2021 COMPR EHENS SINAN METAB OLIC PANEL chloride =101 mmol/ L 98-107 Not Available [facility] ([facility]) [address], [place], [address], 12/07/2021 18:31:16 12/08/19 22 12/07/2021 COMPR EHENS SINAN METAB OLIC PANEL CO2 =21 mmol/ L 22-29 low Not Available [facility] ([facility]) [address] [place], [address], 12/07/2021 18:31:16 12/08/19 22 12/07/2021 COMPR EHENS SINAN METAB OLIC PANEL anion gap =17.0 7.0-17 .0 Not Available [facility] ([facility]) [address] [place], [address], 12/07/2021 18:31:16 12/08/19 22 12/07/2021 COMPR EHENS SINAN METAB OLIC PANEL calcium =9.3 mg/dL 8.6-10 .5 Not Available [facility] ([facility]) [address] , [place], [address], 12/07/2021 18:31:16 12/08/19 22 12/07/2021 COMPR EHENS SINAN METAB OLIC PANEL BUN =17 mg/dL 6-20 Not Available [facility] ([facility]) [address] , [place], [address], 12/07/2021 18:31:16 12/08/19 22 12/07/2021 COMPR EHENS SINAN METAB OLIC PANEL creatinine =1.39 mg/dL 0.70-1 .20 high Not Available [facility] ([facility]) [address] , [place], [address], 12/07/2021 18:31:16 12/08/19 22 12/07/2021 COMPR EHENS SINAN METAB OLIC PANEL eGFR >60.0 Not Available [facility] ([facility]) [address] , [place], [address], 12/07/2021 18:31:16 12/08/19 22 12/07/2021 COMPR EHENS [...] Quali ty Initi ative ) Not Available [facility] ([facility]) [address] [place], [address], 12/07/2021 18:31:16 12/08/19 22 12/07/2021 COMPR EHENS SINAN METAB OLIC PANEL BUN-creatini ne ratio =12 10-20 Not Available [facility] ([facility]) [address], [place], [address], 12/07/2021 18:31:16 12/08/19 22 12/07/2021 COMPR EHENS SINAN METAB OLIC PANEL protein total =7.3 gm/dL 6.4-8. 3 Not Available [facility] ([facility]) [address], [place], [address], 12/07/2021 18:31:16 12/08/19 22 12/07/2021 COMPR EHENS SINAN METAB OLIC PANEL albumin =4.1 gm/dL 3.5-5. 2 Renal Patie nts 3.1-4 .6 gm/dL Not Available [facility] ([facility]) [address], [place], [address], 12/07/2021 18:31:16 12/08/19 22 12/07/2021 COMPR EHENS SINAN METAB OLIC PANEL globulin =3.2 gm/dL 1.4-4. 7 Not Available [facility] ([facility]) [address], [place], [address], 12/07/2021 18:31:16 12/08/19 22 12/07/2021 COMPR EHENS SINAN METAB OLIC PANEL albumin/glob ulin ratio =1.3 1.2-3. 6 Not Available [facility] ([facility]) [address], [place], [address], 12/07/2021 18:31:16 12/08/19 22 12/07/2021 COMPR EHENS SINAN METAB OLIC PANEL alkaline phosphatase =52 U/L 40-129 Not Available [facility] ([facility]) [address], [place], [address], 12/07/2021 18:31:16 12/08/19 22 12/07/2021 COMPR EHENS SINAN METAB OLIC PANEL AST =23 U/L 0-40 Not Available [facility] ([facility]) [address] , [place], [address], 12/07/2021 18:31:16 12/08/19 22 12/07/2021 COMPR EHENS SINAN METAB OLIC PANEL ALT =17 U/L 0-41 Not Available [facility] ([facility]) [address] [place], [address], 12/07/2021 18:31:16 12/08/19 22 12/07/2021 COMPR EHENS SINAN METAB OLIC PANEL bilirubin total =0.89 mg/dL 0.00-1 .20 Not Available [facility] ([facility]) [address] [place], [address], 12/07/2021 18:31:16 12/08/19 22 12/07/2021 ALPHA FETOP [...] n and other findi ngs. Not Available [facility] ([facility]) [address] [place], [address], 12/07/2021 21:40:21 Result Notes None recorded. 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 Medical [...] Updated DateTime 2 175.26 cm 27.9 kg/m2 56363.6 8 g 96.4 [degF] 57 /min 16 /min 134/85 mm[Hg] Fabi Hiram [facility] 2 12:00:17 Date Recorded Body height Body mass index (BMI) Body weight Heart rate Systolic And Diastolic Provider Name and Address Organization Details Last Updated DateTime 10/27/2020 175.26 cm 25.7 kg/m2 45562.07 g 67 /min 122/84 mm[Hg] Myla Harris [facility] 10/27/2020 11:26:53 Date Recorded Body height Body mass index (BMI) Body weight Body temperature Respiratory rate Heart rate Systolic And Diastolic Provider Name and Address Organization Details Last Updated DateTime 2 175.26 cm 28.4 kg/m2 51713.1 7 g 97.9 [degF] 16 /min 60 /min 116/73 mm[Hg] Ibeth Osman [facility] 2 11:29:03 Social History Question Answer Notes LastModified by [employer] Details LastModified Time Tobacco Smoking Status Former Smoker Fabi Gandhi lucas, [facility] 08/31/2021 12:04:01 Do You Have An Advance [...] anxious, or unable to sleep at night)? [id number] Information not available 08/31/2021 Do you have [...] SNOMED-CT Code Diagnosis ICD10 Code Diagnosis Note [id number] MD WALE Davis_[facility]_ [facility] [address], [address] [place] [address] 10/27/2020 11:17:44 10/27/2020 12:01:51 Male hypogonadism 66499406 E29.1 Continue testostero ne cypionate three quarters [...] records when available Chronic ki dney disease 912826665 N18.9 Referral to nephrology . Creatinine borderline elevated for his age at 1.2 [id number] Song Boothe MD CFL_[facility]_ Onc_Hem_V MP_STE_10 [address] [place] [address] 08/31/2021 11:39:26 08/31/2021 15:40:26 Hereditary hemochromatosis 08313184 E83.110 [id number] Song Boothe MD [facility]FL[facility]_ Onc_Hem_V _STE_10 [address] [place] [address] 12/07/2021 10:31:57 12/07/2021 12:30:24 Hereditary hemochromatosis 90903060 E83.110 Health Concerns Section Related Observation LastModified by Organization Detai ls LastModified Time None Recorded Concern Status LastModified by Organization Details LastModified Time None Recorded Advance Directives Directive N: Payers Insurance Date Sequence Insurance Name Policy Number Policy Wiggins Covered Member ID Wiggins Member ID Guarantor Name 08/27/2021 1 [place] [id number] Emory Aguilar [id number] Irvin Aguilar 08/27/2021 1 [place] [id number] Emory Aguilar [id number] Irvin Aguilar 03/07/2022 1 [place] [facility] (O) [id number] Emory Aguilar [id number] Irvin Jeff Notes Date Note Type [...] in 6 months Braeden Lee MD [address] , [place], [address], [facility] 10/27/2020 11:54:24 08/31/2021 text/html Diagnosis:Primar y - [...] 3 months. Mr. Aguilar recently moved from [facility] to [facility] and would like to establish care with us. He last received phlebotomy in April 2020. At that time his blood work showed iron 180, iron saturation 68 ferritin 53 hemoglobin 17.4 hematocrit 50.2. He also received testosterone injection monthly by self injection for hypogonadism. Treatment to Date:Phlebotomies. Song Boothe MD [address] , [place], [address], [facility] 08/31/2021 12:49:01 12/07/2021 text/html Diagnosis:Primar y - [...] 3 months. Mr. Aguilar recently moved from [facility] to [facility] and would like to establish care with us. He last received phlebotomy in April 2020. At that time his blood work showed iron 180, iron saturation 68 ferritin 53 hemoglobin 17.4 hematocrit 50.2. He also received testosterone injection monthly by self injection for hypogonadism. Treatment to Date:Phlebotomies. Song Boothe MD [address] [place], [address], [facility] 12/07/2021 12:28:48
--- OUTSIDE RECORDS SUMMARY | 2025-02-14 17:18 | XMS_ITS | Data Portability ---
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 Plan of Treatment [...] By Organization Details Last Modified Time 01/16/2021 [id number] high blood pressure: care instructions rebel Not [...] referral. [email or web address] Not available 01/16/2021 10:02:53 03/26/2021 [id number] high blood pressure: care instructions [email or web address] Not [...] future. [email or web address] Not available 03/26/2021 16:03:08 07/09/2021 [id number] high blood pressure: care instructions jfurman Not [...] reasons. 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 Medical Equipment [...] Updated DateTime 2 173.99 cm 28.6 kg/m2 49787.1 4 g 64 /min 98 % 98 % 160/80 mm[Hg] 152/80 mm[Hg] [facility] 15:48:12 Date Recorded Body weight Heart rate Oxygen saturation Oxygen saturation in Arterial blood by Pulse oximetry Body mass index (BMI) Body height Systolic And Diastolic Provider Name and Address Organization Details Last Updated DateTime 1 56185.0 7 g 48 /min 98 % 98 % 26.1 kg/m2 173.99 cm 128/64 mm[Hg] Radha Saavedra [facility] 1 09:21:27 Date Recorded Body height Body mass index (BMI) Body weight Heart rate Oxygen saturation Oxygen saturation in Arterial blood by Pulse oximetry Systolic And Diastolic Provider Name and Address Organization Details Last Updated DateTime 1 173.99 cm 26.7 kg/m2 07006.4 4 g 64 /min 98 % 98 % 140/80 mm[Hg] Radha Saavedra [facility] 1 15:34:42 Date Recorded Body height Body mass index (BMI) Body weight Heart rate Oxygen saturation Oxygen saturation in Arterial blood by Pulse oximetry Systolic And Diastolic Provider Name and Address Organization Details Last Updated DateTime 1 173.99 cm 27.7 kg/m2 20229.5 9 g 60 /min 98 % 98 % 132/80 mm[Hg] Radha Saavedra [facility] 1 15:55:16 Social History None recorded. Functional Status None recorded. Mental Status None recorded. Family History Nothing Reported. Medical History No medical history recorded. 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 Migraine 27751638 G43.90 9 Essential hypertension 54129767 I10 Anxiety 30586894 F41.9 [id number] Michaela Alcazar MD [address] [facility] [address] [facility], [address] [place] [id number] 03/26/2021 15:12:24 03/26/2021 16:20:42 Narcolepsy without cataplexy 8504234400 9104 G47.419 Anxiety 81686419 F41.9 Migraine 17754879 G43.90 9 Essential hypertension 16402226 I10 [id number] Michaela Alcazar MD [address] [facility] [address] [facility], [address] [place] [id number] 07/09/2021 15:19:29 07/11/2021 08:59:14 Narcolepsy without cataplexy 4004748818 9104 G47.419 Anxiety 28360381 F41.9 Essential hypertension 98495884 I10 Migraine 80991955 G43.90 9 [id number] Michaela Alcazar MD [address] [facility] [address] [facility], [address] [place] [id number] 11/12/2021 15:31:07 11/12/2021 16:22:16 Essential hypertension 00378148 I10 Narcolepsy without cataplexy 6718271702 9104 G47.419 Migraine 77494319 G43.90 9 Health Concerns Section Related Observation LastModified by Organization Detai ls LastModified Time None Recorded Concern Status LastModified by Organization Details LastModified Time None Recorded Advance Directives Directive None Recorded Payers Insurance Date Sequence Insurance Name Policy Number Policy Wiggins Covered Member ID Wiggins Member ID Guarantor Name 04/10/2022 1 [facility] [place] [id number] Irvin Aguilar [id number] Irvin Aguilar Notes Date Note Type [...] hypertension, hyperlipidemia and hemochromatosis. He moved to [place] in June 2020. Since he moved to [place] has been under lot of stress with a new job. Michaela Alcazar MD [address] [place] [address], [phone], [facility] 01/16/2021 10:04:11 03/26/2021 text/html Mr. Aguilar is [...] hypertension, hyperlipidemia and hemochromatosis. He moved to [place] in June 2020. Blood pressure was noted to be slightly elevated during today's visit Michaela Alcazar MD [address] [place] [address], [phone], [facility] 03/26/2021 16:03:31 07/09/2021 text/html Mr. Aguilar prese [...] hypertension, hyperlipidemia and hemochromatosis. He moved to [place] in June 2020. Blood pressure is controlled with verapamil. Michaela Alcazar MD [address] [place] [address], [phone], [facility] 07/09/2021 16:34:52 11/12/2021 text/html Mr. Jeff bender [...] hyperlipidemia and hemochromatosis. Michaela Alcazar MD [address] [place], [address], [facility] 11/12/2021 16:50:19
--- OUTSIDE RECORDS SUMMARY | 2025-02-14 17:18 | XMS_ITS | Data Portability ---
Author Organization [facility] Address [address] [place] [address] Assessment Encounter Date Assessment Date Assessment LastModified [...] the plan of care. Plan Of Care 78737: OT Evaluation: Low Complexity 32867: OT Evaluation: Moderate Complexity 57759: OT Evaluation: High Complexity 64619: OT Re-Evaluation 12316: Whirlpool 93370: E-Stim (unattended) 94039: Estim (Manual) G0283: E-Stim, Unattended (Medicare) 48042: Iontophoresis 34506: Ultrasound 54462: Therapeutic Exercise 30395: Neuromuscular Re-Education 50401: Manual Therapy 62722: Therapeutic Activities 17069: Self Care/home management training NC001: No Charges [...] improved by 2 lbs; he has maintained building energy consultant strength of 55 lbs. OT services will [...] By Organization Details Last Modified Time 02/23/2020 [id number] STG- Pt will be able to use [...] Pt. will be able to demonstrate increase building energy consultant strength by 10-15 lbs and 3pt. pinch by 3-5 lbs to increase ADL independence in 6 weeks. PARTIALLY MET (02/23/2020) LTG- Increase building energy consultant strength to 30# to increase functional use [...] Tarsal /Metat arsal Closed *; Not Available [facility] 9 07:04:27 Triggering of digit [id number] Active 2017 Not Available [facility] 9 01:49:04 Numbness of hand 852575987 Active 2019 Julia Morataya null, [facility] 0 14:04:29 Carpal tunnel syndrome of right wrist [id number] 08 Active 2019 Julia Morataya null, [facility] 0 14:04:37 Neck pain 50736448 Active 2019 Julia Morataya null, [facility] 0 14:05:22 Cubital tunnel syndrome Active 2019 Julia Morataya null, [facility] 0 14:06:01 Postoperat farrah visit 515696887 Active 2019 Oralia Mcqueen null, [facility] 0 12:56:26 Problem Notes None recorded. Procedures Surgical History Date Name Laterality Status Provider Name and Address Organization Details Recorded Time 0 43940: Ultrasound completed Xiomara Downs OT [address] [place], [address], [facility] 02/23/2020 17:09:37 0 94217: Ultrasound completed Xiomara Downs OT [address] [place], [address], [facility] 02/22/2020 10:26:38 0 71006: Therapeutic Exercise completed Xiomara Downs, OT [address] [place], [address], [facility] 02/22/2020 10:26:38 0 89568: Manual Therapy completed Xiomara Downs, OT [address] [place], [address], [facility] 02/22/2020 10:26:38 0 34419: Ultrasound completed Xiomara Downs OT [address] [place], [address], [facility] 02/16/2020 17:20:02 0 59234: Therapeutic Exercise completed Xiomara Downs OT [address] [place], [address], [facility] 02/16/2020 17:20:02 0 93423: Manual Therapy completed Xiomara Downs, OT [address] [place], [address], [facility] 02/16/2020 17:30:17 0 70813: Ultrasound completed Xiomara Downs, OT [address] [place], [address], [facility] 02/14/2020 17:35:53 0 35921: Therapeutic Exercise completed Xiomara Bushe, OT [address] [place], [address], [facility] 02/14/2020 17:34:24 0 96583: Manual Therapy completed Xiomara Bushe, OT [address] [place], [address], [facility] 02/14/2020 17:36:24 0 35068: Therapeutic Exercise completed Xiomara Bushe, OT [address] [place], [address], [facility] 02/10/2020 11:50:02 0 34579: Manual Therapy completed Xiomara Bushe, OT [address] [place], [address], [facility] 02/10/2020 11:49:35 0 85277: Ultrasound completed Xiomara Downs, OT [address] [place], [address], [facility] 02/08/2020 13:38:24 0 33388: Therapeutic Exercise completed Xiomara Downs, OT [address] [place], [address], [facility] 02/08/2020 13:38:24 0 82066: Manual Therapy completed Xiomara Downs, OT [address] [place], [address], [facility] 02/08/2020 13:38:24 0 70798: Ultrasound completed Xiomara Downs, OT [address] [place], [address], [facility] 01/31/2020 16:18:14 0 45564: Therapeutic Exercise completed Xiomararyan Downs, OT [address] [place], [address], [facility] 01/31/2020 16:20:03 0 03387: Manual Therapy completed Xiomara Downs, OT [address] [place], [address], [facility] 01/31/2020 16:17:55 0 43850: Ultrasound completed Xiomara Downs, OT [address] [place], [address], [facility] 01/31/2020 16:24:40 0 09368: Therapeutic Exercise completed Xiomara Downs, OT [address] [place], [address], [facility] 01/31/2020 16:22:33 0 93392: Manual Therapy completed Xiomara Downs, OT [address] [place], [address], [facility] 01/31/2020 16:22:24 0 21848: Therapeutic Exercise completed Xiomara Downs, OT [address] [place], [address], [facility] 01/25/2020 12:26:10 0 15202: Manual Therapy completed Xiomara Downs, OT [address] [place], [address], [facility] 01/25/2020 12:24:16 0 *44835: OT Evaluation: Low Complexity completed Xiomara Downs, OT [address] [place], [address], [facility] 12/20/2019 21:19:26 0 46270: Therapeutic Exercise completed Xiomara Downs, OT [address] [place], [address], [facility] 12/20/2019 21:19:31 9 RLP30 Right Middle Trigger completed Oralia Mcqueen [facility] 06/02/2019 16:59:42 9 RLP30 Trigger Digit Injection Right MULTIPLE completed Emy Santizo NP [address] [place], [address], [facility] 09/06/2018 21:40:18 Imaging Results None recorded. Procedure [...] Available N ot Available BD Regular Bevel [place] 18 gauge x 1 USE DIRECTED active [...] Not Available No t Available Flucelvax Quad 8366-2538 (PF) 60 mcg (15 mcg x 4)/0.5 mL IM syringe 11/28 completed Not Available Not Available Not Available Vitals None Recorded Social History Question Answer Notes LastModified by Organizat ion Details LastModified Time Tobacco Smoking Status Never Smoker Renita Olson [facility] 11/29/2019 15:41:00 What Was The Date Of Your Most Recent Tobacco Screening? 02/01/2020 [email or web address] Information not available 02/01/2020 How Much Tobacco Do You Smoke? No Information not available 05/31/2019 Sex: Unknown Functional Status Question Answer Note LastModified by Organizat ion Details LastModified Time Do you or have you ever used smokeless tobacco? Former smokeless tobacco user chewed tobacco for 15 years [email or web address] Information not available 05/31/2019 Mental Status None [...] heart burn / difficulty swallowing etc) N Blood Clot N Eyes (ex: burning / redness / itching et c) N Musculoskeletal (ex: painful /stiff joints / [...] / neck or groin nodules etc) N Kidney or Bladder Problems N Neurological (ex: dizziness / seizures / sensation disturbance / numbness/tingling etc) N Pulmonary/Lung Disease N Skin Problems N [...] breath / cough etc) N Lupus N Psoriasis N Peripheral Vascular Disease N Epilepsy/Seizures N Sleep Apnea N Cardiac/Heart Disease/Hypertension N Cardiovascular (ex: chest pain / tightne ss / dizzy spells etc) N Scleroderma N Neuropathy N Pulmonary Embolism N Past Encounters Encounter ID Performer Location Encounter Start Date Encounter Closed Date Diagnosis/Indication Diagnosis SNOMED-CT Code Diagnosis ICD10 Code Diagnosis Note [id number] GABRIELA Tripathi [address] [place] [address],[address] [place] [address] 09/03/2018 15:48:16 09/03/2018 16:22:12 Trigger finger of right hand [id number] 3102724 M65.321 M65.331 [id number] Narinder Schulte MD [facility] [address] [place] [address] 05/31/2019 15:47:42 06/04/2019 13:02:12 Triggering of digit 648583389 M65.331 [id number] MD DANETTE Dubois_Salena r [address] [place], [place] [address] [place] [address] 11/29/2019 15:16:54 11/29/2019 17:08:28 Numbness of hand 493287310 R20.0 Carpal yamini cade syndrome of right wrist 1931052597 24328 G56.01 G56.21 Neck pain 68507492 M54.2 Triggering of digit 2399 45886 M65.331 Cubital tu nnel syndrome 08827810 G56.23 [id number] CHELSEA Aragon_Poolsha r_OT [address] [place] [address] 12/15/2019 16:39:46 12/21/2019 10:22:41 Pain of right wrist 8134094036 45314 M25.531 [id number] MD DANETTE Dubois_Anatoliy en [facility] [address] [place] [address] 12/22/2019 14:22:26 12/22/2019 14:51:18 Postoperative visit 392856571 Z09 Satisfacto ry visit [id number] CHELSEA Aragon r_OT [address] [place] [address] 01/24/2020 10:22:50 01/25/2020 12:33:07 Pain of right wrist 2000015834 28163 M25.531 [id number] CHELSEA Aragon r_OT [address] [place] [address] 01/26/2020 14:40:36 02/01/2020 10:40:32 Pain of right wrist 7798944096 41736 M25.531 [id number] CHELSEA Aragon r_OT [address] [place] [address] 01/31/2020 15:07:03 02/01/2020 10:41:24 Pain of right wrist 4441445668 72900 M25.531 [id number] MD Margie Dubois en [facility] [address] [place] [address] 02/01/2020 11:16:30 02/01/2020 13:34:34 Postoperative visit 828177453 Z09 Satisfacto ry visit [id number] Xiomara Downs, OT [facility] [address] [place] [address] 02/07/2020 15:02:20 02/09/2020 13:54:04 Pain of right wrist 5861955639 07897 M25.531 [id number] Xiomara Downs OT [facility] [address] [place] [address] 02/09/2020 15:14:50 02/14/2020 07:49:35 Pain of right wrist 7079588754 00976 M25.531 [id number] Xiomara Downs OT [facility] [address] [place] [address] 02/14/2020 16:23:34 02/15/2020 15:00:54 Pain of right wrist 2114470738 48447 M25.531 [id number] Xiomara Downs OT [facility] [address] [place] [address] 1 02/16/2020 14:33:08 02/16/2020 16:51:13 Pain of right wrist 4738775022 45412 M25.531 [id number] Xiomara Downs OT [facility] [address] [place] [address] 1 02/21/2020 16:35:14 02/21/2020 19:21:57 Pain of right wrist 2440715133 14232 M25.531 [id number] Xiomara Downs OT [facility] [address] [place] [address] 02/23/2020 15:40:00 02/25/2020 09:46:23 Pain of right wrist 3266174616 43943 M25.531 [id number] Xiomara Downs, OT [facility] [address] [place] [address] 1 03/01/2020 16:42:48 03/02/2020 12:58:51 Pain of right wrist 7676481580 18292 M25.531 Health Concerns Section Related Observation LastModified by Organization Detai ls LastModified Time None Recorded Concern Status LastModified by Organization Details LastModified Time None Recorded Advance Directives Directive None Recorded Payers Insurance Date Sequence Insurance Name Policy Number Policy Wiggins Covered Member ID Wiggins Member ID Guarantor Name 01/02/2020 1 [facility] [place] [facility] [place] Irvin Aguilar [id number] Irvin Aguilar 03/18/2020 1 [facility] [place] Irvin Aguilar [id number] Irvin Aguilar 11/22/2019 1 [facility] SIGNATURE ADMINISTRATORS (PPO) [id number] Irvin Aguilar [id number] Irvin Aguilar
--- OUTSIDE RECORDS SUMMARY | 2025-02-14 17:18 | XMS_ITS | Patient Health Record ---
Author Organization [facility] Address [address] [facility] [address] [place] [address] Care Team Providers Care Tobacco Warehouse Agent Name Role Phone Juan Sebastian Unavailable [phone] Faustino Pierce MD Unavailable Unavailable Reason For Referral No Information Medications Medication SIG (Take, Route, Frequency, Duration) Notes Start Date End Date Status Bisoprolol-hydroCHLOROthia zide 5-6.25 MG Tablet Oral 09/04/2012 Active Imitrex 100 MG Tablet TAKE 1 TABLET FOR MIGRAINE RELIEF. MAY REPEAT 2 HOURS LATER. MAXIMUM 200MG/DAY. Oral Active Lexapro 20 MG Tablet TAKE 1 TABLET DAILY. Oral Active [place] 10-325 MG Tablet TAKE 1 TABLET CHRISTIANO RY 8 HOURS NEEDED FOR PAIN. 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
--- OUTSIDE RECORDS SUMMARY | 2025-02-14 17:18 | XMS_ITS | Data Portability ---
Author Organization [place] - [facility] [employer], Main Office Address [address] [place] [address] Care Team Providers Care Trading Assistant Name Role Phone LEROY HERNANDEZ Primary Care Provider [phone] Assessment Encounter Date Assessment Date Assessment LastModified [...] in detail. Cont f/u with Hemat at [place] as per schedule. Cont f/u with Neuro at [place] as per schedule. Cont f/u with Ophtho as per schedule. Offered to refer to Psych/counsellor; but pt declined. Offered to refer to Uro; but pt declined. Educated pt about alarming symptoms to monitor at home. HM: Colonoscopy - Referred to GI. Flu - 05/20. Tdap - 01/10/25. Pneumo - 09/19. Shingrix - At pharmacy/HD. F/u in 2-3 weeks. Annual labs in 01/20. Not available 01/10/2025 17:23:20 Plan of Treatment Reminders Order Date Submit Date Provider Last Modified By Organization Details Last Modified Time Details Appointments Any 15 2024 03:45P M Leroy Hernandez MD Not available Not available Not available Lab testoster one, free + total, serum 2024 025 [facility] (Lab), [address] [place], [address], 01/22/2025 16:38:48 CMP, serum or plasma [address] (Lab), [address] [place], [address], 01/27/2025 13:54:07 CBC w/ auto diff [address] (Lab), [address] [place], [address], 01/27/2025 13:54:07 lipid panel, blood [address] (Lab), [address] [place], [address], 01/27/2025 13:54:07 TSH, serum, reflex free T4 [address] (Lab), [address] [place], [address], 01/27/2025 13:54:07 PSA, serum or plasma [address] (Lab), [address] [place], [address], 01/27/2025 13:54:07 urinalysi s complete, reflex culture [address] (Lab), [address] [place], [address], 01/27/2025 13:54:08 vitamin B12 + folate, serum or blood [address] (Lab), [address] [place], [address], 01/27/2025 13:54:08 vitamin D3, 25-hydrox y, serum [address] (Lab), [address] [place], [address], 01/27/2025 13:54:08 magnesium , serum or plasma [address] (Lab), [address] [place], [address], 01/27/2025 13:54:08 glycohemo globin, total, blood [address] (Lab), [address] [place], [address], 01/27/2025 13:54:08 PSA, serum or plasma 2023 024 [email or web address] Not available 09/09/2023 12:33:46 Referral gastroent erologist referral - Please call patient to schedule an appointme nt. Thank you. 2024 025 [facility], [address], [address], [address], 01/17/2025 10:35:26 Procedures None recorded. Surgeries None recorded. Imaging XR, chest, 2 view 2023 024 DENEEN Not available 06/03/2024 16:29:14 Medication Orders propranol ol 20 mg tablet 2024 025 [facility]acy #3259, [address] [place], [address], 01/10/2025 17:12:19 verapamil 120 mg tablet 2024 025 [facility] #3259, [address] [place], [address], 01/10/2025 17:12:18 vilazodon e 20 mg tablet 2024 025 [facility] #3259, [address] [place], [address], 01/10/2025 17:12:19 prednison e 20 mg tablet 2023 [address] [place], [address], 01/10/2025 16:58:50 ciproflox acin 500 mg tablet 2023 024 [address] [place], [address], 01/10/2025 16:59:11 promethaz ine-DM 6.25 mg-15 mg/5 mL oral syrup 2023 024 [address] [place], [address], 01/10/2025 16:58:43 testoster one cypionate 200 mg/mL intramusc ular oil 2023 024 [facility] [address] [place], [address], 08/13/2023 16:44:59 Patient TargetsNo targets recorded. Patient InstructionsNo instructions recorded. Reason for Referral Co Founder And Chairman Referral for Screening colonoscopy Please call patient to schedule an appointment. Thank you. Referring Physician: Leroy Hernandez, Family Medicine, Encounter Date: 01/10/2025 Results Created Date Observation Date Name Description Value Unit Range Abnormal Flag Note LastModifiedBy Organization Detail LastModifiedTime 06/03/20 24 06/03/2024 XR, chest , 2 view No observ ation record ed. [email or web address] [place] [address], [address], 01/10/2025 16:57:25 07/02/07/2025 CT, abdom en + pelvi s, w/ contr ast No observ ation record ed. [facility] [address], [place], [address], 02/07/2025 20:44:15 Result Notes None recorded. Problems Name Problem SNOMED Code Status Onset Date Resolution Date Notes Provider Name and Address Organization Details Recorded Time Migraine 28337949 Active 2021 Not Available [facility] 3 01:25:39 Hemochroma tosis 914209105 Active 2021 Not Available [facility] 3 01:25:39 Narcolepsy 55229611 Active 2021 Not Available [facility] 3 01:25:39 Screening for malignant neoplasm of prostate Active 2023 SELENA Scott [address], [place], [address] , [employer] 4 16:49:58 Administra tion of influenza vaccine Active 2023 SELENA Scott [address], [place], [address] , [employer] 4 16:50:45 Cough 08703703 Active 2023 SELENA Scott [address], [address], [place], [address] , [employer] 4 15:00:22 Male hypogonadi sm 34328371 Active 2024 Leroy Hernandez MD [address], [address], [place], [address] , [employer] 5 12:17:45 Body mass index 25-29 - overweight 991374867 Active 2024 Leroy Hernandez MD [address], [address], [place], [address] , [employer] 5 16:59:52 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 [employer] [facility] 17:02:35 Depressive disorder 34104822 Active 2024 Leroy Hernandez MD [address], [address], [place], [address] , [employer] [facility] 17:05:07 Chronic anxiety 675893193 Active 2024 Leroy Hernandez MD [address], [address], [place], [address] , [employer] [employer] [facility] 17:05:28 Benign hypertensi on 92308590 Active 2024 Leroy Hernandez MD [address], [address], [place], [address] , [employer] [facility] 17:10:30 Problem Notes None recorded. Procedures Surgical History Date Name Laterality Status Provider Name and Address Organization Details Recorded Time Tonsillectomy completed Not Available [facility] 09/26/2022 01:24:40 release of trigger finger completed Not Available [facility] 09/26/2022 01:24:40 Carpal tunnel completed Not Available [facility] 09/26/2022 01:24:40 procedure on nerve completed Not Available [facility] 09/26/2022 01:24:40 Imaging Results None recorded. [...] Not Available Not Available No t Available fluconazole 200 mg tablet ONE TAB BY MOUTH EVERYDAY FOR 5 DAYS active Not Available Not [...] mg-potassiu m clavulanate 125 mg tablet TAKE 1 [...] TAKE 1 TABLET BY MOUTH EVERY DAY IN THE MORNING active Not Available Not Available No [...] Address Organization Details Last Updated DateTime 4 16659.7 g 97.7 [degF] 68 /min 98 % 98 % 132/78 mm[Hg] Whitney Dillon MA [facility] [employer] 4 16:36:30 Date Recorded Body height Body mass index (BMI) Body weight Body temperature Oxygen saturation Oxygen saturation in Arterial blood by Pulse oximetry Heart rate Systolic And Diastolic Provider Name and Address Organization Details Last Updated DateTime 5 175.26 cm 28.9 kg/m2 06959.1 g 97.1 [degF] 97 % 97 % 61 /min 130/70 mm[Hg] Radha Solorio RN [facility] [employer] [facility] 5 16:52:12 Date Recorded Body mass index (BMI) Body height Oxygen saturation Oxygen saturation in Arterial blood by Pulse oximetry Heart rate Body temperature Body weight Systolic And Diastolic Provider Name and Address Organization Details Last Updated DateTime 2 27.1 kg/m2 173.99 cm 97 % 97 % 63 /min 98.4 [degF] 19772.2 2 g 176/90 mm[Hg] Not Available [employer] 3 01:24:51 Date Recorded Body weight Body mass index (BMI) Body height Body temperature Heart rate Oxygen saturation Oxygen saturation in Arterial blood by Pulse oximetry Systolic And Diastolic Provider Name and Address Organization Details Last Updated DateTime 4 49231.3 3 g 28.5 kg/m2 175.26 cm 99 [degF] 65 /min 97 % 97 % 128/86 mm[Hg] Tasneem Gaona RN [place] [facility] 14:38:47 Social History Question Answer Notes LastModified by Organizat ion Details LastModified Time Tobacco Smoking Status Never Smoker Not Available [facility] 09/26/2022 01:23:56 How Many Years Have You Consumed Alcohol? 11 Information not available 01/10/2025 What Is Your Level Of Caffeine Consumption? None [email or web address] Information not available 01/10/2025 How Many Years Have You Used Smokeless Tobacco? 15 Quit 2009 [email or web address] Information not available 01/10/2025 Sex: Unknown Functional Status Question Answer Note LastModified by Organizat ion Details LastModified Time Do you use any illicit or recreational drugs? No Information not available 01/10/2025 Do you or have you ever used any other forms of tobacco or nicotine? Yes [id number] Information not available 09/26/2022 What is your level of alcohol consumption? Occasional [email or web address] Information not available 01/10/2025 Do you or have you ever used smokeless tobacco? Former smokeless tobacco user [id number] Information not available 09/26/2022 Do you or have you ever used e-cigarettes or vape? Never used electronic cigarettes [email or web address] Information not available 01/10/2025 Mental Status None recorded. Family History Relationship Description Onset Age of this Age Resolved Age Notes LastModified by Organization Details LastModified Time Father Hypercholest erolemia MIGRATION.702 [id number] Not available 09/26/2022 01:24:41 Father Heart disease MIGRATION.162 [id number] Not available 09/26/2022 01:24:41 Father Kidney disease MIGRATION.170 [id number] Not available 09/26/2022 01:24:41 Father Kidney stone MIGRATION.0 30 [id number] Not available 09/26/2022 01:24:41 Father Diabetes mellitus MIGRATION.628 [id number] Not available 09/26/2022 01:24:42 Father Hypertensive disorder MIGRATION.268 [id number] Not available 09/26/2022 01:24:42 Paternal Grandfather Hypercholest erolemia MIGRATION.692 [id number] Not available 09/26/2022 01:24:42 Paternal Uncle Hypercholest erolemia MIGRATION.246 [id number] Not available 09/26/2022 01:24:42 Maternal Grandmother Diabetes mellitus MIGRATION.474 [id number] Not available 09/26/2022 01:24:42 Maternal Grandfather Myocardial infarction MIGRATION.035 [id number] Not available 09/26/2022 01:24:42 Maternal Grandfather Hypertensive disorder MIGRATION.916 [id number] Not available 09/26/2022 01:24:42 Maternal Grandfather Family history of stroke MIGRATION.742 [id number] Not available 09/26/2022 01:24:42 Medical History Condition [...] PROSTATIC HYPERPLASIA N MEASLES N CERVICALGIA N TB SKIN TEST N HYPOTENSION N MYOCARDIAL INFARCTION N PARAPELGIA N OBESITY [...] INSOMNIA N HIGH CHOLESTEROL / HYPERLIPIDEMIA N EYE PROBLEMS N HYPERTHYROIDISM N EATING DISORDER N EDEMA N CHRONIC PAIN SYNDROME N CAROTID BLOCKAGE N CONSTIPATION N BACK / NECK PROBLEMS N HAVE YOU BEEN HOSPITALIZED OR SEEN IN [facility] IN THE PAST YEAR ? N [...] DISORDER N ALZHEIMER'S DISEASE N PAIN N DEMENTIA N HERPES N SEIZURES/EPILEPSY N HEADACHES/MIGRAINES Y VASCULAR DISEASE N PACEMAKER N DIZZINESS N HEART DISEASE/HEART PROBLEMS N KIDNEY DISEASE N SCARLET FEVER N MULTIPLE SCLEROSIS N DEVELOPMENTAL OR BEHAVIORAL DISORDERS N MENTAL DISORDER/ILLNESS N CANCER: SPECIFY N CARDIAC ARRHYTHMIA N PNEUMONIA N ATRIAL FIBRILLATION N Gall Stones N PULMONARY EMBOLISM N AUTOIMMUNE DISEASE N Immunizations Vaccine Type Date Status Note Provider Nam e and Address Organization Details Recorded Time Tdap 5 completed Radha Solorio RN [facility], [employer] 01/10/2025 17:24:40 Influenza, MDCK, quadrivalent, PF 2 completed Leroy Hernandez MD [address], [place], [address], [employer] 01/10/2025 16:57:38 COVID-19, mRNA, LNP-S, bivalent, PF, 30 mcg/0.3 mL dose 3 completed Leroy Hernandez MD [address], [address], [place], [address], [employer] 01/10/2025 16:57:38 pneumococcal polysaccharide PPV23 3 completed Leroy Hernandez MD [address], [place], [address], [employer] 01/10/2025 16:57:38 Influenza, MDCK, trivalent, PF 4 completed Leroy Hernandez MD [address], [place], [address], [employer] 01/10/2025 16:57:49 Influenza, split virus, quadrivalent, PF 4 completed SELENA Scott [address], [address], [place], [address], [employer] 08/16/2023 20:48:59 Past Encounters Encounter ID Performer Location Encounter Start Date Encounter Closed Date Diagnosis/Indication Diagnosis SNOMED-CT Code Diagnosis ICD10 Code Diagnosis Note [id number] Lu Diaz MD [facility] [address] [place] [address] 04/17/2022 00:00:00 04/18/2022 08:53:30 [id number] Lu Diaz MD [address] [place] [address] 08/13/2023 16:20:20 08/13/2023 17:06:44 Renewal of prescription 568279837 Z76.0 Screening for malignant neoplasm of prostate 084342527 Z12.5 Administra tion of influenza vaccine 31883449 Z23 Hemochromatosis 18552687 6 E83.119 Narcolepsy 43439026 G47. 374 [id number] Leroy Hernandez MD [address] [place] [address] 06/03/2024 14:26:19 06/03/2024 15:05:30 Cough 53908205 R05.9 [id number] Leroy Hernandez MD [address] [address] 01/10/2025 16:45:33 01/10/2025 17:24:08 Adult health examination 456154986 Z00.00 Body mass index 25-29 - overweight 897082841 E66.3 Hemochromatosis 84147264 6 E83.119 Migraine 59242719 G43.90 9 Narcolepsy without cataplexy 8125934173 9104 G47.419 Depressive disorder 3548 9007 F32.A Chronic anxiety 60552782 9 F41.9 Male hypogonadism 524639 06 E29.1 Screening colonoscopy 44 6309384 Z12.11 Active immunization 3387 9002 Z23 Benign hypertension 1072 5009 I10 Health Concerns Section Related Observation LastModified by Organization Detai ls LastModified Time None Recorded Concern Status LastModified by Organization Details LastModified Time None Recorded Advance Directives Directive None Recorded Payers Insurance Date Sequence Insurance Name Policy Number Policy Wiggins Covered Member ID Wiggins Member ID Guarantor Name 01/07/2025 1 [employer] (PPO) [id number] Irvin Aguilar [id number] Ivrin Aguilar Notes Date Note Type Note Provider Name and Address Organization Details Recorded Time 08/13/2023 text/html needs testosterone SELENA Parra [address], [place], [address], [employer] 08/16/2023 20:50:58 06/03/2024 text/html no fever . SELENA Scott [address], [address], [place], [address], [employer] 06/28/2024 12:30:01 01/10/2025 text/html Pt is here [...] him. Pt is f/u with Neuro at [place] for his migraine and narcolepsy and is on meds by them. Leroy Hernandez MD [address], [place], [address], [employer] 01/10/2025 17:26:41
--- OUTSIDE RECORDS SUMMARY | 2025-02-14 17:18 | XMS_ITS | Clinical Summary ---
Author Organization [facility] Ayad Morel Address [address] [place] [address] Care Team Providers Care Cut Off Worker Name Role Phone Lu Diaz MD Primary Care Provider [phone] Allergies No known active allergies Medications propranoloL [...] saliva. 15 Tablet 1 01/19/20 25 Active imatinib (GLEEVEC) 400 mg tablet Take [...] Type Department Care Team Description 02/03/2025 Telephone [facility] Oncology and Hematology - [place] [address] [place] [address] Bethel Goldberg MD Medication Question 01/18/2025 Specialty Pharmacy [facility] [address] [place] [phone] Audrey Zaldivar, PHARMACIST Specialty Pharmacy Refill Coordination 01/18/2025 Refill [facility] Oncology and Hematology - [place] [address] [place] [address] Bethel Goldberg MD Hereditary hemochromatosis 01/17/2025 Refill [facility] Oncology and Hematology - [place] [address] [place] [address] Bethel Goldberg MD 01/14/2025 Specialty Pharmacy [facility] [address] [place] [phone] Audrey Zaldivar, PHARMACIST Specialty Pharmacy Prior Auth Coordination 01/13/2025 4:30 PM CDT Telephone Check Up [facility] Oncology and Hematology - [place] [address] [place] [address] Bethel Goldberg MD Chronic myeloid leukemia, BCR/ABL-positive, not having achieved remission (CMS/HCC) (Primary Dx); Hereditary hemochromatosis 01/03/2025 Orders Only [facility] Oncology and Hematology - [place] [address] [place] [address] Bethel Goldberg MD 12/29/2024 Abstract [facility] Oncology and Hematology - [place] [address] [place] [phone] Bethel Goldberg MD 12/28/2024 External Device Data STL ABSTRACTION Provider, Abstract 12/15/2024 External Device Data [facility] ABSTRACTION Provider, Abstract 12/14/2024 External Device Data [facility] ABSTRACTION Provider, Abstract 12/13/2024 Orders Only [facility] Oncology and Hematology - [place] [address] [place] [phone] Bethel Goldberg MD Hereditary hemochromatosis (Primary Dx) 12/09/2024 4:30 PM CDT Telephone Check Up [facility] Oncology and Hematology [facility] [address] [place] [phone] Bethel Goldberg MD Leukocytosis, unspecified type (Primary Dx) 12/06/2024 Orders Only [facility] Oncology and Hematology - [place] [address] Bethel Goldberg MD Hereditary hemochromatosis 12/03/2024 Refill [facility] Oncology and Hematology - [place] [address] [place] [phone] Bethel Goldberg MD Hereditary hemochromatosis 11/30/2024 Orders Only [facility] Oncology and Hematology - [place] [address] [place] [phone] Bethel Goldberg MD 11/30/2024 Abstract [facility] Oncology and Hematology - [place] [address] [place] [address] Bethel Goldberg MD 11/29/2024 3:45 PM CDT Office Visit [facility] Oncology and Hematology - [place] [address] [place] [address] Bethel Goldberg MD Hereditary hemochromatosis (Primary Dx); Leukocytosis, unspecified type 11/22/2024 Orders Only [facility] Oncology and Hematology - [place] [address] [place] [address] Bethel Goldberg MD Hereditary hemochromatosis from Last [...] on file Legal Sex Male 4: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 Gender Identity Not on file Sexual Orientation [...] 175.3 cm (5' 9) 08/28/2022 3:20 PM PRODUCTION UTILITY WORKER Body Mass Index 29.15 08/28/2022 3:20 PM PRODUCTION UTILITY WORKER Plan of Treatment Upcoming Encounters Date Type Department Care Team (Late st Contact Info) Description 02/16/2025 4:30 PM CDT Telephone Check Up [facility] Oncology and Hematology - [place] [address] [place] [address] Bethel Goldberg MD [address] [place] [address] 04/14/2025 3:45 PM CDT Office Visit [facility] Oncology and Hematology - [place] [address] [place] [address] Bethel Goldberg MD [address] [place] [address] Health Maintenance Due Date Last [...] - T d or Tdap) 01/10/2035 01/10/2025 Procedures Procedure Name Priority Date/Time Associated Diagnosis Comments CBC WITH AUTODIFFERENTIAL Routine 2024 11:21 AM CDT FLOW CYTOMETRY REPORT Routine 12/03/2024 3:05 PM CDT IRON LEVEL Routine 11/26/2024 12:57 PM CDT from Last 3 Months Results * CBC WITH AUTODIFFERENTIAL (12/31/2024 11:21 AM CDT) Blood us Bethel Goldberg MD HEMATOLOGY ORDERABLES Final Res ult * FLOW CYTOMETRY REPORT (12/03/2024 3:05 PM CDT) Bethel Goldberg MD PATHOLOGY/CYTOLOGY ORDERABLES F inal Result * IRON LEVEL (11/26/2024 12:57 PM CDT) Blood Bethel Goldberg MD CHEMISTRY ORDERABLES Final Resu lt from Last 3 Months Insurance [facility] BLUE ACCESS CHOICE RX GENERIC COMMERCIAL Commercial Care Teams Cut Off Worker Relationship Specialty Start Date End Date Lu Diaz MD PCP - General Family Practice 08/28/22
--- OUTSIDE RECORDS SUMMARY | 2025-02-14 17:18 | XMS_ITS | Clinical Summary ---
Author Organization [facility] Medical Office Building B Address [address] [place] [address] Care Team Providers Care Grain Weigher Name Role Phone Lu Diaz MD Primary Care Provider [phone] Allergies No known active allergies Medications ALPRAZolam [...] Diagnosed Date DAVID (obstructive sleep apnea) 09/16/2023 Surgical History Surgery Date Site/Laterality Comments ULNAR [...] patient's age to complete this topic Insurance [employer] [place] [employer] [place] Care Teams Grain Weigher Relationship Specialty Start Date End Date Lu Diaz MD [address] [place] [address] [place] [address] PCP - General Family Medicine 04/24/22
--- OUTSIDE RECORDS SUMMARY | 2025-02-14 17:18 | XMS_ITS | Clinical Summary ---
Author Organization [facility] Address [address] [place] [address] Phone Care Team Providers Care School Age Lead Teacher Name Role Phone Lu Diaz MD Primary Care Provider [phone] Davina Balderrama GLOBAL HEAD AD[employer], NATIONAL RECRUITER Unavailable [phone]- [phone] Allergies No known active allergies Medications doxycycline [...] patient's age to complete this topic Insurance [facility] Care Teams School Age Lead Teacher Relationship Specialty Start Date End Date Lu Diaz MD [facility] [place] [address] PCP - General Disposal Plant Operator 05/01/22 Davina Balderrama APRN, NATIONAL RECRUITER [address] [place] [address] Nurse Practitioner Advanced Practice Nurse 05/28/22
--- OUTSIDE RECORDS SUMMARY | 2025-02-14 17:18 | XMS_ITS | Referral Summary ---
Author Organization [facility] Medical Office Building B Address [address] [place] [address] Care Team Providers Care Lace Tearing Supervisor Name Role Phone Lu Diaz MD Primary Care Provider [phone] Allergies No known active allergies Medications ALPRAZolam [...] Plan of Treatment Not on file Insurance [facility] Care Teams Lace Tearing Supervisor Relationship Specialty Start Date End Date Lu Diaz MD [facility] [place] [address] PCP - General Family Medicine 04/24/22
[2025-02-14 17:35] LABS: Hematocrit 45.2 % (42.0-52.0); Hemoglobin 15.1 g/dL (14.0-18.0); Immature Granulocyte Percent A 0.9 % (0-0.5); Lymphocytes Absolute Auto 0.97 K/mm3 (0.9-3.2); Mean Corpuscular HGB Conc 33.4 g/dl (32-36); Mean Corpuscular Hemoglobin 33.6 pg (26-34); Mean Corpuscular Volume 100.4 fl (80-100); Nucleated Red Blood Cells Absolute Auto 0.000 K/mm3 (0.0-0.012); Nucleated Red Blood Cells Perc 0.0 % (0.0-0.2); Platelet Count Result 105 k/mm3 (150-375); Red Blood Count 4.50 M/mm3 (4.6-6.20); White Blood Count 3.3 K/mm3 (4.5-10.0)
[2025-02-14 17:55] LABS: Iron 213 ug/dL (49-181)
[2025-02-14 18:04] LABS: Percent Iron Saturation 89 % (20-50)
[2025-02-14 18:36] LABS: Ferritin 234.00 ng/mL (11.1-264)
== END 2025-02-14 17:12 | disposition home or self-care (01) ==
LOC: ANHLAB 17:16
PROVIDERS: PCP Family Medicine; Visit Provider Internal Medicine Hematology & Oncology
DX: E83.110 Hereditary hemochromatosis (principal)
CPT/HCPCS: 36415; 82728; 83540; 83550; 85025

== ENCOUNTER 2025-03-10 10:34 | Outpatient (CLI) | payer BC, SELFPAY ==
--- NOTE | ~2025-03-10 | XR_ITS ---
EXAMINATION: XR abdomen/kub 1V DATE: 03/10/2025 10:59 INDICATION: Right flank pain TECHNIQUE: A supine view of the abdomen on 2 radiographs was obtained. COMPARISON: CT chest, abdomen and pelvis 02/07/2025 FINDINGS: Moderate amount of stool in nondilated large bowel. Small amount of air in nondilated small bowel. Th ere are a few tiny phleboliths in the pelvis similar to the CT study from 02/07/2025. No abnormal calc ifications projecting over the kidneys. Osseous structures are grossly stable and unremarkable. IMPRESSION: 1. Nonspecific abdomen with a moderate amount of stool. If symptoms persist or worsen, consider a CT of the abdomen and pelvis for further assessment. Reviewed, dictated and finalized at location A.
--- OUTSIDE RECORDS SUMMARY | 2025-03-10 10:48 | XMS_ITS | Clinical Summary ---
Author Organization [facility] Medical Office Building B Address [address] [place] [address] Care Team Providers Care Employee Welfare Manager Name Role Phone Lu Diaz MD Primary Care Provider [phone] Allergies No known active allergies Medications ALPRAZolam [...] Vaccine (1 of 2) 2022 Influenza Vaccine (#1) 2025 4, 03/25/2022, 04/15/2017 Pneumococcal vaccine <65 Aged Out No longer eligible based on patient's age to complete this topic Insurance [employer] [place] [place] Care Teams Employee Welfare Manager Relationship Specialty Start Date End Date Lu Diaz MD [address] [place] [address] [place] [address] PCP - General Family Medicine 04/24/22
--- OUTSIDE RECORDS SUMMARY | 2025-03-10 10:48 | XMS_ITS | Clinical Summary ---
Author Organization [facility] Ayad Morel Address [address] [place] [address] Care Team Providers Care Distillation Operator Name Role Phone Lu Diaz MD Primary Care Provider [phone] Allergies No known active allergies Medications propranoloL [...] mouth daily with breakfast. 30 Tablet 4 02/29/20 25 Active imatinib (GLEEVEC) 400 mg tablet Take 1 Tablet (400 mg) by mouth daily with breakfast. 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 Migraine 08/28/2022 Encounters Date Type Department Care Team Description 02/28/2025 Refill [facility]ology - [place] [id number] Bethel Goldberg MD 02/22/2025 Abstract [facility] - [place] [address] [place] [id number] Bethel Goldberg MD 02/17/2025 Orders Only [facility] - [place] [address] [place] [address] Bethel Goldberg MD 02/16/2025 4:30 PM CDT Telephone Check Up [facility] - [place] [address] [place] [id number] Bethel Goldberg MD Hereditary hemochromatosis (Primary Dx); Chronic myeloid leukemia, BCR/ABL-positive, not having achieved remission (CMS/HCC) 02/16/2025 Orders Only [facility] - [place] [address] [place] [address] Bethel Goldberg MD 02/03/2025 Telephone [facility] - [place] [address] [place] [id number] Bethel Goldberg MD Medication Question 01/18/2025 Specialty Pharmacy [facility] [address] [place] [address] [place] [address] Audrey Zaldivar, PHARMACIST Specialty Pharmacy Refill Coordination 01/18/2025 Refill [facility] - [place] [address] [place] [id number] Bethel Goldberg MD Hereditary hemochromatosis 01/17/2025 Refill [facility] - [place] [address] [place] [address] Bethel Goldberg MD 01/14/2025 Specialty Pharmacy [facility] [address] [place] [address] [place] [address] Audrey Zaldivar, PHARMACIST Specialty Pharmacy Prior Auth Coordination 01/13/2025 4:30 PM CDT Telephone Check Up [facility] - [place] [address] [place] [address] Bethel Goldberg MD Chronic myeloid leukemia, BCR/ABL-positive, not having achieved remission (CMS/HCC) (Primary Dx); Hereditary hemochromatosis 01/03/2025 Orders Only [facility] Hematology [facility] [address] [place] [address] Bethel Goldberg MD 12/29/2024 Abstract [facility] [address] [place] [address] Bethel Goldberg MD 12/28/2024 External Device Data STL ABSTRACTION Provider, Abstract 12/15/2024 External Device Data [facility] ABSTRACTION Provider, Abstract 12/14/2024 External Device Data [facility] ABSTRACTION Provider, Abstract 12/13/2024 Orders Only [facility] [place] [address] [place] [address] Bethel Goldberg MD Hereditary hemochromatosis (Primary Dx) 12/09/2024 4:30 PM CDT Telephone Check Up [facility] [address] [place] [address] Bethel Goldberg MD Leukocytosis, unspecified type (Primary Dx) from Last 3 Months Family History Medical [...] on file 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 Gender Identity Not on file Sexual Orientation [...] 175.3 cm (5' 9) 08/28/2022 3:20 PM YARD GOODS SALESPERSON Body Mass Index 29.15 08/28/2022 3:20 PM YARD GOODS SALESPERSON Plan of Treatment Upcoming Encounters Date Type Department Care Team (Late st Contact Info) Description 04/14/2025 3:45 PM CDT Office Visit [facility] Hematology - [place] [address] [facility] [address] [place] [address] Bethel Goldberg MD [address] [facility] [address] [place] [address] Health Maintenance Due Date Last Done Comments Pre-Diabetes and Diabetes Screening 1972 HEPATITIS B VACCINES (1 of 3 - 19+ 3-dose series) 1991 COLORECTAL SCREENING 2017 Colorectal Cancer Screening 2017 FIT-DNA Q 3 years 2017 FIT/FOBT Q 1 year 2017 Flex Sig/CT Colonography Q 5 years 2017 ZOSTER VACCINE (1 of 2) 2022 COVID-19 Vaccine (2023-2 5 season) 2024 09/13/2022 INFLUENZA VACCINE (#1) 2025 , 08/13/2023, 03/25/2022, Additional history exists DTAP/TDAP/TD VACCINES (2 - T d or Tdap) 01/10/2035 01/10/2025 Procedures Procedure Name Priority Date/Time Associated Diagnosis Comments COMPREHENSIVE METABOLIC PANEL Routine 02/15/2025 4:26 PM CDT IRON, TIBC, AND PERCENT SATURATION Routine 02/14/2025 1:57 PM CDT CBC WITH AUTODIFFERENTIAL Routine 2024 8:39 AM CDT CBC WITH AUTODIFFERENTIAL Routine 2024 11:21 AM CDT from Last 3 Months Results * COMPREHENSIVE METABOLIC PANEL (02/15/2025 4:26 PM CDT) Blood us Bethel Goldberg MD CHEMISTRY ORDERABLES Final Resu lt * IRON, TIBC, AND PERCENT SATURATION (02/14/2025 1:57 PM CDT) Blood us Bethel Goldberg MD CHEMISTRY ORDERABLES Final Resu lt * CBC WITH AUTODIFFERENTIAL (02/14/2025 8:39 AM CDT) Only the most recent of2 resultswithin the time period is included. Blood us Bethel Goldberg MD HEMATOLOGY ORDERABLES Final Res ult from Last 3 Months Insurance [facility] BLUE ACCESS CHOICE RX GENERIC COMMERCIAL Commercial Care Teams Distillation Operator Relationship Specialty Start Date End Date Lu Diaz MD PCP - General Family Practice 08/28/22
--- OUTSIDE RECORDS SUMMARY | 2025-03-10 10:48 | XMS_ITS | Patient Health Record ---
Author Organization [facility] Address [address] [facility] [address] [place] [address] Care Team Providers Care Diagram Clerk Name Role Phone Juan Sebastian Unavailable [phone] Faustino Pierce MD Unavailable Unavailable Reason For Referral No Information Medications Medication SIG (Take, Route, Frequency, Duration) Notes Start Date End Date Status Bisoprolol-hydroCHLOROthia zide 5-6.25 MG Tablet Oral 09/04/2012 Active Imitrex 100 MG Tablet TAKE 1 TABLET FOR MIGRAINE RELIEF. MAY REPEAT 2 HOURS LATER. MAXIMUM 200MG/DAY. Oral Active Lexapro 20 MG Tablet TAKE 1 TABLET DAILY. 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
--- OUTSIDE RECORDS SUMMARY | 2025-03-10 10:48 | XMS_ITS | Clinical Summary ---
Author Organization [facility] Address [address] [place] [address] Phone Care Team Providers Care Coronary Clinical Specialist Name Role Phone Lu Diaz MD Primary Care Provider [phone] Davina Balderrama FULL TIME STAFF INTERPRETER, HAULAGE ENGINE OPERATOR Unavailable [phone] Allergies No known active allergies Medications doxycycline [...] patient's age to complete this topic Insurance [facility] Care Teams Coronary Clinical Specialist Relationship Specialty Start Date End Date Lu Diaz MD [facility] [place] [address] PCP - General Pulp Screen Operator 05/01/22 Davina Balderrama APRN, HAULAGE ENGINE OPERATOR [address] [place] [address] Nurse Practitioner Advanced Practice Nurse 05/28/22
== END 2025-03-10 10:35 | disposition home or self-care (01) ==
PROVIDERS: PCP Family Medicine
DX: R10.9 Unspecified abdominal pain (principal)
CPT/HCPCS: 74018

== ENCOUNTER 2025-05-16 16:50 | Outpatient (CLI) | payer BC, SELFPAY ==
[2025-05-16 17:21] LABS: Hematocrit 40.1 % (42.0-52.0); Hemoglobin 14.0 g/dL (14.0-18.0); Immature Granulocyte Percent A 0.2 % (0-0.5); Lymphocytes Absolute Auto 1.03 K/mm3 (0.9-3.2); Mean Corpuscular HGB Conc 34.9 g/dl (32-36); Mean Corpuscular Hemoglobin 36.0 pg (26-34); Mean Corpuscular Volume 103.1 fl (80-100); Nucleated Red Blood Cells Absolute Auto 0.000 K/mm3 (0.0-0.012); Nucleated Red Blood Cells Perc 0.0 % (0.0-0.2); Platelet Count Result 125 k/mm3 (150-375); Red Blood Count 3.89 M/mm3 (4.6-6.20); White Blood Count 4.0 K/mm3 (4.5-10.0)
[2025-05-16 17:35] LABS: Iron 194 ug/dL (49-181)
[2025-05-16 17:44] LABS: Percent Iron Saturation 90 % (20-50)
[2025-05-16 18:16] LABS: Ferritin 224.00 ng/mL (11.1-264)
== END 2025-05-16 16:51 | disposition home or self-care (01) ==
LOC: ANHLAB 16:53
PROVIDERS: PCP Family Medicine; Visit Provider Internal Medicine Hematology & Oncology
DX: C92.10 Chronic myeloid leukemia, BCR/ABL-positive, not having achieved remission (principal); E83.110 Hereditary hemochromatosis
CPT/HCPCS: 36415; 82728; 83540; 83550; 85025

== ENCOUNTER 2025-05-25 16:33 | Outpatient (CLI) | payer BC, SELFPAY ==
[2025-05-25 17:34] LABS: Cholesterol 145 mg/dL (0-200); HDL Direct 42 mg/dL; Triglycerides 94 mg/dL (<150)
--- OUTSIDE RECORDS SUMMARY | 2025-05-25 17:57 | XMS_ITS | Patient Health Record ---
Author Organization [facility] Address [address] [facility] [address] [place] [address] Care Team Providers Care Correctional Casework Specialist Name Role Phone Juan Sebastian Unavailable [phone] Faustino Pierce MD Unavailable Unavailable Reason For Referral No Information Medications Medication SIG (Take, Route, Frequency, Duration) Notes Start Date End Date Status Bisoprolol-hydroCHLOROthia zide 5-6.25 MG Tablet Oral 09/04/2012 Active Imitrex 100 MG Tablet TAKE 1 TABLET FOR MIGRAINE RELIEF. MAY REPEAT 2 HOURS LATER. MAXIMUM 200MG/DAY. Oral Active Lexapro 20 MG Tablet TAKE 1 TABLET DAILY. 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
--- OUTSIDE RECORDS SUMMARY | 2025-05-25 17:57 | XMS_ITS | Clinical Summary ---
Author Organization [facility] Address [address] [place] [address] Phone Care Team Providers Care Hydraulic Punch Press Operator Name Role Phone Lu Diaz MD Primary Care Provider [phone] Davina Balderrama SMOKING PIPE LINER, HEAD AUTOMATIC SAWYER Unavailable [phone]- [phone] Allergies No known active allergies Medications doxycycline [...] 2022 Zoster Immunization (1 of 2) 2022 Influenza Immunization (#1) 2025 08/2 03/2022, 04/15/2017, 05/13/2014 SARS-COV-2 Immunization ( - season) 2025 Respiratory Syncytial Virus (RSV) Immunization (Adult) (1 [...] patient's age to complete this topic Insurance [facility] Care Teams Hydraulic Punch Press Operator Relationship Specialty Start Date End Date Lu Diaz MD [facility] [place] [address] PCP - General Market Analyst 05/01/22 Davina Balderrama APRN, HEAD AUTOMATIC SAWYER [address] [place] [address] Nurse Practitioner Advanced Practice Nurse 05/28/22
--- OUTSIDE RECORDS SUMMARY | 2025-05-25 17:57 | XMS_ITS | Clinical Summary ---
Author Organization [facility] Ayad Morel Address [address] [place] [address] Care Team Providers Care Director Patient Accounting Name Role Phone Lu Diaz MD Primary Care Provider [phone] Allergies No known active allergies Medications propranoloL [...] breakfast. 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 Migraine 08/28/2022 Encounters Date Type Department Care Team Description 05/17/2025 Orders Only [facility] On[facility] and Hematology - [place] [address] [place] [address] Bethel Goldberg MD 04/25/2025 3:45 PM CDT Office Visit [facility]ology - [place] [address] [place] [address] Bethel Goldberg MD Hereditary hemochromatosis (Primary Dx); Chronic myeloid leukemia, BCR/ABL-positive, not having achieved remission (CMS/HCC) 04/19/2025 Orders Only [facility] and Hematology - [place] [address] [place] [address] Bethel Goldberg MD 04/14/2025 Orders Only [facility]ematology - [place] [address] [place] [address] Bethel Goldberg MD 03/21/2025 Telephone [facility] H[facility]ology - [place] [address] [place] [address] Bethel Goldberg MD Surgical Clearance 03/15/2025 External Device Data STL ABSTRACTION Provider, Abstract 02/28/2025 Refill [facility] - [place] [address] [place] [address] Bethel Goldberg MD 02/22/2025 Abstract [facility]ology - [place] [address] [place] [address] Bethel Goldberg MD from Last 3 Months Family History Medical [...] on file 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 Gender Identity Not on file Sexual Orientation Not on file Last Filed Vital Signs Vital Sign Reading Time Taken Comments Blood Pressure 140/76 04/25/2025 3:42 PM CDT Pulse 67 04/25/2025 3:42 PM CDT Temperature 37.1 C (98.8 F) 04/25/2025 3:42 PM CDT Respiratory Rate 14 04/25/2025 3:42 PM CDT Oxygen Saturation 97% 04/25/2025 3:42 PM CDT Inhaled Oxygen Concentration - - Weight 83.9 kg (185 lb) 04/25/2025 3:42 PM CDT Height 175.3 cm (5' 9) 08/28/2022 3:20 PM LAP POLISHER Body Mass Index 27.32 08/28/2022 3:20 PM LAP POLISHER Plan of Treatment Upcoming Encounters Date Type Department Care Team (Late st Contact Info) Description 08/03/2025 3:45 PM LAP POLISHER Office Visit [facility] On[facility] and Hematology - [place] [address] [facility] [address] [place] [address] Bethel Goldberg MD [address] [facility] [address] [place] [address] Health Maintenance Due Date Last Done Comments Pre-Diabetes and Diabetes Screening 1972 HEPATITIS B VACCINES (1 of 3 - 19+ 3-dose series) 1991 ZOSTER VACCINE (1 of 2) 1991 COLORECTAL SCREENING 2017 Colorectal Cancer Screening 2017 FIT-DNA Q 3 years 2017 FIT/FOBT Q 1 year 2017 Flex Sig/CT Colonography Q 5 years 2017 INFLUENZA VACCINE (#1) 2025 4, 08/13/2023, 03/25/2022, Additional history exists COVID-19 Vaccine (2 - 2024-2 6 season) 2025 09/13/2022 DTAP/TDAP/TD VACCINES (2 - T d or Tdap) 01/10/2035 01/10/2025 Procedures Procedure Name Priority Date/Time Associated Diagnosis Comments CBC WITH AUTODIFFERENTIAL Routine 2024 4:25 PM CDT IRON, TIBC, AND PERCENT SATURATION Routine 04/12/2025 11:36 AM CDT COMPREHENSIVE METABOLIC PANEL Routine 04/12/2025 11:31 AM CDT CBC WITH AUTODIFFERENTIAL Routine 2024 8:17 AM CDT BCR/ABL DIAGNOSTIC ASSAY W/REFLEX Routine 04/12/2025 8:01 AM CDT from Last 3 Months Results * CBC WITH AUTODIFFERENTIAL (05/16/2025 4:25 PM CDT) Only the most recent of2 resultswithin the time period is included. Blood us Bethel Goldberg MD HEMATOLOGY ORDERABLES Final Res ult * IRON, TIBC, AND PERCENT SATURATION (04/12/2025 11:36 AM CDT) Blood us Bethel Goldberg MD CHEMISTRY ORDERABLES Final Resu lt * COMPREHENSIVE METABOLIC PANEL (04/12/2025 11:31 AM CDT) Blood us Bethel Goldberg MD CHEMISTRY ORDERABLES Final Resu lt * BCR/ABL DIAGNOSTIC ASSAY W/REFLEX (04/12/2025 8:01 AM CDT) us Bethel Goldberg MD BODY FLUIDS AND STOOLS COM Lacey l Result from Last 3 Months Insurance [facility] BLUE ACCESS CHOICE RX GENERIC COMMERCIAL Commercial Care Teams Director Patient Accounting Relationship Specialty Start Date End Date Lu Diaz MD PCP - General Family Practice 08/28/22
--- OUTSIDE RECORDS SUMMARY | 2025-05-25 17:57 | XMS_ITS | Clinical Summary ---
Author Organization [facility] Address [address] [place] [address] Care Team Providers Care Hydrology Teacher Name Role Phone Lu Diaz MD Primary Care Provider [phone] Allergies No known active allergies Medications ALPRAZolam [...] patient's age to complete this topic Insurance [employer] [place] [employer] [place] Care Teams Hydrology Teacher Relationship Specialty Start Date End Date Lu Diaz MD [address] [place] [address] [place] [address] PCP - General Family Medicine 04/24/22
== END 2025-05-25 16:34 | disposition home or self-care (01) ==
LOC: ANHLAB 16:34
PROVIDERS: PCP Family Medicine; Visit Provider Family Medicine
DX: E78.1 Pure hyperglyceridemia (principal); I10 Essential (primary) hypertension
CPT/HCPCS: 36415; 80061

== ENCOUNTER 2025-06-15 16:59 | Outpatient (CLI) | payer BC, SELFPAY ==
[2025-06-15 17:17] LABS: Hematocrit 42.0 % (42.0-52.0); Hemoglobin 14.5 g/dL (14.0-18.0); Immature Granulocyte Percent A 0.3 % (0-0.5); Lymphocytes Absolute Auto 1.20 K/mm3 (0.9-3.2); Mean Corpuscular HGB Conc 34.5 g/dl (32-36); Mean Corpuscular Hemoglobin 36.3 pg (26-34); Mean Corpuscular Volume 105.0 fl (80-100); Nucleated Red Blood Cells Absolute Auto 0.000 K/mm3 (0.0-0.012); Nucleated Red Blood Cells Perc 0.0 % (0.0-0.2); Platelet Count Result 112 k/mm3 (150-375); Red Blood Count 4.00 M/mm3 (4.6-6.20); White Blood Count 3.7 K/mm3 (4.5-10.0)
[2025-06-15 17:28] LABS: Alanine Aminotransferase 26 U/L (6-50); Albumin Level 4.3 g/dL (3.5-5.1); Alkaline Phosphatase 52 U/L (38-126); Anion Gap 4 mmol/L (4-12); Aspartate Amino Transferase 28 U/L (17-59); Bilirubin,Total 0.9 mg/dL (0.2-1.3); Blood Urea Nitrogen 20 mg/dL (9-20); Calcium 8.5 mg/dL (8.4-10.2); Carbon Dioxide 30 mmol/L (22-30); Chloride 101 mmol/L (98-107); Estimated Glomerular Filt Rate 50; Glucose 92 mg/dL (65-110); Potassium 4.0 mmol/L (3.4-5.0); Sodium 135 mmol/L (137-145); Total Protein 6.9 g/dL (6.3-8.2)
[2025-06-15 18:13] LABS: Ferritin 168.00 ng/mL (11.1-264)
[2025-06-16 08:41] LABS: Iron 221 ug/dL (49-181)
[2025-06-16 08:51] LABS: Percent Iron Saturation 95 % (20-50)
== END 2025-06-15 17:00 | disposition home or self-care (01) ==
LOC: ANHLAB 17:02
PROVIDERS: PCP Family Medicine; Visit Provider Internal Medicine Hematology & Oncology
DX: E83.110 Hereditary hemochromatosis (principal); C92.10 Chronic myeloid leukemia, BCR/ABL-positive, not having achieved remission; I10 Essential (primary) hypertension
CPT/HCPCS: 36415; 80053; 82728; 83540; 83550; 85025